=== PATIENT | female | born 1990 | race African-American/Black ===

== ENCOUNTER 2020-09-08 17:25 | Emergency (ER) | payer MEDICARE, MEDICAID, SELFPAY ==
--- NOTE | 2020-09-08 17:32 | ED_ITS ---
HPI - Nausea/Vomiting/Diarrhea General Chief complaint: Nausea/Vomiting/Diarrhea Stated complaint: VOMITING X'S DAYS,H/O CYCLICAL VOMITING Time Seen by Provider: 09/08/20 17:32 Source: patient Mode of arrival: EMS Limitations: no limitations History of Present Illness HPI Narrative: Patient history of marijuana abuse, cyclical vomiting syndrome been vomiting for last 1 week similar to that in previous episode was seen at [facility] yesterday for same vomiting 10-15 times a day unable to take anything down no diarrhea no abdominal pain no fever patient denied use of marijuana for last 1 week. Patient been to our hospital multiple times for similar situation feels anxious Related Data Allergies Allergy/AdvReac Type Severity Reaction Status Date / Time codeine [CODEINE] Allergy Unknown UNKNOWN Verified 09/08/20 17:41 acetaminophen [From TYLENOL] AdvReac Mild HEADACHES Verified 09/08/20 17:41 From HALDOL Allergy Unknown Anaphylaxis Uncoded 09/08/20 17:41 Review of Systems Review of Systems: Yes all other systems are reviewed and are negative PMFSH Past Medical History Medical History Anxiety Bipolar 1 disorder Depression PTSD (post-traumatic stress disorder) Social History Social History Advance Directives: No Advance Directives Information Provided: Yes Patient : No Physical Exam Vital Signs: Vital Signs: Last Vital Signs Temp 98.1 F 09/08/20 17:36 Pulse 94 09/08/20 19:30 Resp 22 H 09/08/20 19:30 BP 167/93 H 09/08/20 19:30 Pulse Ox 100 09/08/20 19:30 Body Mass Index 47.0 Appearance: Alert. Oriented X3. No acute distress. Eyes: PERRLA, No Nystagmus ENT: Pharynx normal. Oral Mucosa moist Neck: Normal inspection. Neck supple. CVS: Normal heart rate and rhythm. Pulses normal. Respiratory: No respiratory distress. Equal air entry bilateral, no wheezing/rales/rhonchi Abdomen: Soft and nontender. Bowel sounds are present, no mass palpable, no CVA tenderness Skin: Skin warm and dry. Normal skin color. Normal skin turgor. Extremities: No lower extremity edema. No calf tenderness Neuro: Oriented X 3. No motor deficit. No sensory deficit.No cerebellar signs , cranial nerves II-XII intact MDM - Nausea/Vomiting/Diarrhea MDM Narrative Medical decision making narrative: Patient has cyclic vomiting syndrome feeling much better now DC home taking p.o. fluids Lab Data Attestation: I reviewed the patient's lab results. Result diagrams: 09/08/20 18:47 09/08/20 18:16 Labs: Lab Results 09/08/20 09/08/20 09/08/20 Range/Units 18:16 18:16 18:20 WBC RBC Hgb Hct MCV MCH MCHC RDW Plt Count MPV Immature Gran % (Auto) Neut % (Auto) Lymph % (Auto) [place] % (Auto) Eos % (Auto) Baso % (Auto) Lymph # (Auto) [place] # (Auto) Eos # (Auto) Baso # (Auto) Abs Immat Gran (auto) Absolute Neuts (auto) Absolute Nucleated RBC Nucleated RBC % (auto) Sodium Cancelled 141 Potassium Cancelled 3.6 Chloride Cancelled 104 Carbon Dioxide Cancelled 28 Anion Gap Cancelled 13 BUN Cancelled 9 Creatinine Cancelled 0.86 Estim Creat Clear Calc Cancelled 140.5 Estimated GFR Cancelled > 60 Random Glucose Cancelled 112 Calcium Cancelled 9.2 Total Bilirubin Cancelled 0.7 AST Cancelled 22 ALT Cancelled 19 Alkaline Phosphatase Cancelled 85 Total Protein Cancelled 7.3 Albumin Cancelled 4.3 Lipase 15 (8-78) U/L Urine Opiates Screen Not Detected (Not Detect) Ur Barbiturates Screen Not Detected (Not Detect) Ur Phencyclidine Scrn Not Detected (Not Detect) Ur Amphetamines Screen Not Detected (Not Detect) U Benzodiazepines Scrn POSITIVE H (Not Detect) Urine Cocaine Screen Not Detected (Not Detect) U Marijuana (THC) Screen POSITIVE H (Not Detect) 09/08/20 Range/Units 18:47 WBC Cancelled RBC Cancelled Hgb Cancelled Hct Cancelled MCV Cancelled MCH Cancelled MCHC Cancelled RDW Cancelled Plt Count Cancelled MPV Cancelled Immature Gran % (Auto) Cancelled Neut % (Auto) Cancelled Lymph % (Auto) Cancelled [place] % (Auto) Cancelled Eos % (Auto) Cancelled Baso % (Auto) Cancelled Lymph # (Auto) Cancelled [place] # (Auto) Cancelled Eos # (Auto) Cancelled Baso # (Auto) Cancelled Abs Immat Gran (auto) Cancelled Absolute Neuts (auto) Cancelled Absolute Nucleated RBC Cancelled Nucleated RBC % (auto) Cancelled Sodium Potassium Chloride Carbon Dioxide Anion Gap BUN Creatinine Estim Creat Clear Calc Estimated GFR Random Glucose Calcium Total Bilirubin AST ALT Alkaline Phosphatase Total Protein Albumin Lipase (8-78) U/L Urine Opiates Screen (Not Detect) Ur Barbiturates Screen (Not Detect) Ur Phencyclidine Scrn (Not Detect) Ur Amphetamines Screen (Not Detect) U Benzodiazepines Scrn (Not Detect) Urine Cocaine Screen (Not Detect) U Marijuana (THC) Screen (Not Detect) Discharge Plan Discharge Clinical Impression: Cyclic vomiting syndrome Patient Disposition: Home, Self-Care Instructions: Cyclic Vomiting Syndrome (ED) Additional Instructions: Drink plenty of fluids rest at home. stop Using marijuana Interventions: ED Discharge Assessment Last Done: 09/08/20 19:36 Discharge Date/Time: 09/08/20 19:37
[2020-09-08 17:36] VITALS: BP 153/102; PULSE 105; RESP 16; TEMP 36.7; O2SAT 100; BMI 47.0
[2020-09-08] MEDS: 0.9 % Sodium Chloride 1,000 ML 999 ML IVCONT (17:53)
[2020-09-08] MEDS: Prochlorperazine Edisylate 10 MG/2 ML VIAL IVPUSH (17:53)
[2020-09-08] MEDS: LORazepam 2 MG/ML VIAL 1 MG IVPUSH (17:53)
[2020-09-08 18:50] LABS: Alanine Aminotransferase 19 U/L (0-31); Albumin Level 4.3 g/dL (3.5-5.0); Alkaline Phosphatase 85 U/L (39-117); Anion Gap 13 (12-20); Aspartate Amino Transferase 22 U/L (5-31); Bilirubin Total 0.7 mg/dL (0.0-1.0); Blood Urea Nitrogen 9 mg/dL (9-16); Calcium 9.2 mg/dL (8.4-10.2); Carbon Dioxide 28 mmol/L (22-29); Chloride 104 mmol/L (96-108); Creatinine Clr Calc Pharmacy 140.5; Estimated Glomerular Filt Rate > 60; Glucose Random 112 mg/dL (60-115); Lipase 15 U/L (8-78); Potassium 3.6 mmol/L (3.3-5.1); Sodium 141 mmol/L (135-145); Total Protein 7.3 g/dL (6.5-8.0)
[2020-09-08 18:56] LABS: Amphetamine Screen Urine Not Detected (Not Detect); Barbiturates, Urine Not Detected (Not Detect); Benzodiazepines Screen Urine POSITIVE (Not Detect); Cannabinoid Screen Urine POSITIVE (Not Detect); Cocaine Screen Urine Not Detected (Not Detect); Opiate Screen Urine Not Detected (Not Detect); Phencyclidine Screen Urine Not Detected (Not Detect)
[2020-09-08 19:30] VITALS: BP 167/93; PULSE 94; RESP 22; O2SAT 100
[2020-09-08] MEDS: Haloperidol Lactate 5 MG/ML VIAL 2 MG IM (19:33)
[2020-09-08] MEDS: LORazepam 1 MG TABLET PO (19:34)
== END 2020-09-08 19:37 | disposition home or self-care (01) ==
PROVIDERS: Emergency Provider Internal Medicine
DX: R11.15 Cyclical vomiting syndrome unrelated to migraine (principal); F12.10 Cannabis abuse, uncomplicated
CPT/HCPCS: 36415; 80053; 80307; 83690; 85025; 96361; 96372; 96374; 96375; 99284; J2060

== ENCOUNTER 2020-09-09 07:39 | Emergency (ER) | payer MEDICARE, MEDICAID, SELFPAY ==
--- NOTE | 2020-09-09 08:38 | ED.NAVMDI ---
HPI - Nausea/Vomiting/Diarrhea General Chief complaint: Nausea/Vomiting/Diarrhea Stated complaint: sick with vomitting Time Seen by Provider: 09/09/20 08:18 Source: patient Mode of arrival: ambulatory Limitations: no limitations History of Present Illness HPI Narrative: Patient presents to ED for cyclic vomiting presentation. Patient states she is vomiting because she is continuing smoking marijuana. Patient states she has slightly cut down amount of marijuana smoking but has refused to stop. Patient was seen yesterday for similar presentation. Patient is also seen at [facility] for similar yesterday.. Patient has been to the ED for similar she has presented multiple times in the past. Patient denies any chest pain, shortness of breath, abdominal pain, dysuria, hematuria, flank pain, vaginal bleeding, fever, or chills. MD elicited complaint: nausea and vomiting Associated nausea: Yes Related Data Previous Rx's Medication Instructions Recorded alum-mag hydroxide-simeth [Maalox 10 ml PO Q6H PRN #3000 ml 09/09/20 Advanced] famotidine [Pepcid] 20 mg PO BID #20 tab 09/09/20 ondansetron HCl [Zofran] 4 mg PO Q6H PRN #8 tab 09/09/20 quetiapine [Seroquel] 300 mg PO BEDTIME #5 tab 09/09/20 Allergies Allergy/AdvReac Type Severity Reaction Status Date / Time codeine [CODEINE] Allergy Unknown UNKNOWN Verified 09/08/20 17:41 acetaminophen [From TYLENOL] AdvReac Mild HEADACHES Verified 09/08/20 17:41 From HALDOL Allergy Unknown Anaphylaxis Uncoded 09/08/20 17:41 Review of Systems Review of Systems: Yes all other systems are reviewed and are negative Constitutional: Constitutional: Reports as per HPI and Reports no additional constitutional complaints Eyes: Eyes: Reports as per HPI and Reports no additional eye complaints ENT: Reports system reviewed and no additional complaints, except as documented, Reports as per HPI, Denies dysphagia and Denies odynophagia Cardiovascular: Cardiovascular: Reports as per HPI and Reports no additional cardiovascular complaints Respiratory: Respiratory: Reports as per HPI and Reports no additional respiratory complaints Gastrointestinal: Gastrointestinal: Reports as per HPI, Reports no additional gastrointestinal complaints, Denies abdominal pain, Denies belching, Denies melena, Denies bloating, Denies hematochezia, Denies change in bowel habits, Denies tenesmus, Denies change in stool character, Denies coffee ground emesis, Denies constipation, Denies GI cramping, Denies dysphagia, Denies excessive flatus, Denies early satiety, Denies dyspepsia, Denies heartburn, Denies fecal incontinence, Denies diarrhea, Denies loose stools, Reports nausea, Denies odynophagia, Reports vomiting and Denies hematemesis Genitourinary: Genitourinary: Reports no additional female genitourinary complaints and Reports as per HPI Musculoskeletal: Musculoskeletal: Reports no additional musculoskeletal complaints and Reports as per HPI Neurologic: Reports system reviewed and no additional complaints, except as documented and Reports as per HPI Psychiatric: Psychiatric: Reports no additional psychiatric complaints and Reports as per HPI [facility] Past Medical History Medical History Anxiety Bipolar 1 disorder Depression PTSD (post-traumatic stress disorder) Social History Social History Advance Directives: Yes Advance Directives Information Provided: Yes Advance Directives on File: No Physical Exam Vital Signs: Vital Signs: Last Vital Signs Pulse 99 09/09/20 10:47 Resp 20 09/09/20 10:47 BP 154/99 H 09/09/20 10:47 Pulse Ox 98 09/09/20 10:47 Body Mass Index 47.0 Const: General: cooperative, healthy appearing, comfortable, no acute distress, well developed, alert, awake and Physically active Orientation/consciousness: patient oriented x3 HENMT: Head: Yes normal to inspection, Yes No palpable skull fracture present, Yes normocephalic and Yes atraumatic Eyes: General: appearance normal, both eyes and all related structures Neck: Neck: Yes normal visual inspection, Yes full ROM, Yes no lymphadenopathy, Yes no meningeal signs, Yes trachea midline, Yes supple and No tender Chest: Chest palpation & inspection: normal inspection of the chest and normal palpation of entire chest wall Resp: Effort & Inspection: normal respiratory effort and able to speak in complete sentences Auscultation: clear to auscultation bilaterally Cardio: Jugular venous distension: no JVD Heart sounds: S1 normal heart sound present and S2 normal heart sound present GI: Inspection: Yes normal to inspection and No abdominal wall ecchymosis Palpation (GI): Soft to palpation, not firm, nontender, no guarding and not rigid : General: No CVA tenderness and Yes no CVA tenderness Back/Spine/Pelvis: Back: no CVA tenderness, No CVA tenderness and No back tenderness Skin: General skin exam: no rashes or lesions noted and elasticity normal Neuro: General: patient oriented x3, gait normal, no meningeal signs and CN's II-XI intact bilaterally Cranial nerves: Yes CN's II-XII intact bilaterally Extrem: General: Yes normal to inspection and Yes full ROM Psych: Appearance: grossly normal, well kempt and not disheveled Course Course Course Narrative: Will give patient IM Zyprexa, Benadryl, Zofran, and Reglan. Patient had labs yesterday. Will re-evaluate. Reevaluation(s) Reevaluation #1: Patient is sleeping comfortably in bed.. Patient no longer vomiting Time: 10:10 Reevaluation #2: Patient states she feels better and would like to be discharged. Patient also requesting prescription of Seroquel because her current prescription was lost. patient also asking for GERD meds. Patient passed p.o. challenge Time: 10:41 MDM - Nausea/Vomiting/Diarrhea MDM Narrative Medical decision making narrative: Cyclic vomitting Discharge Plan Discharge Clinical Impression: Cyclical vomiting Patient Disposition: Home, Self-Care Instructions: Cyclic Vomiting Syndrome (ED) Additional Instructions: Return to the ED for for fever, chills, intractable nausea/vomiting, inability to tolerate solid food/liquid, severe abdominal pain, dizziness, weakness, or any other concerning symptoms. Please follow up with PCP Prescriptions: New quetiapine [Seroquel] 300 mg tablet 300 mg PO BEDTIME Qty: 5 RF: 0 famotidine [Pepcid] 20 mg tablet 20 mg PO BID Qty: 20 RF: 0 alum-mag hydroxide-simeth [Maalox Advanced] 200-200-20 mg/5 mL suspension 10 ml PO Q6H PRN (Reason: dyspepsia) Qty: 3000 RF: 0 ondansetron HCl [Zofran] 4 mg tablet 4 mg PO Q6H PRN (Reason: nausea) Qty: 8 RF: 0 Interventions: ED Discharge Assessment Last Done: 09/09/20 11:03 Discharge Date/Time: 09/09/20 11:51 Print Language: Irish
[2020-09-09] MEDS: LORazepam 2 MG/ML VIAL IM (09:10)
[2020-09-09] MEDS: Metoclopramide HCl 10 MG/2 ML VIAL IM (09:11)
[2020-09-09] MEDS: diphenhydrAMINE HCL 50 MG/ML VIAL IM (09:11)
[2020-09-09] MEDS: OLANZapine 10 MG VIAL IM (09:25)
[2020-09-09 10:45] VITALS: BP 154/99; PULSE 99; RESP 20; O2SAT 98
[2020-09-09 10:47] VITALS: BP 154/99; PULSE 99; RESP 20; O2SAT 98; BMI 47.0
--- NOTE | 2020-09-09 11:46 | PC.NURSE ---
pt reports to the ed with cyclic vomiting, no c/o pain. states she has been smoking marijuana for a while and has been having symptoms x1wk. pt pacing states it makes her feel better to walk around. Meds given with good effect.
== END 2020-09-09 11:51 | disposition home or self-care (01) ==
PROVIDERS: Emergency Provider Emergency Medicine
DX: R11.15 Cyclical vomiting syndrome unrelated to migraine (principal); F12.90 Cannabis use, unspecified, uncomplicated
CPT/HCPCS: 96372; 99283; 99284; J1200; J2060; J2765

== ENCOUNTER 2020-09-13 05:49 | Emergency (ER) | payer MEDICARE, MEDICAID, SELFPAY | END 2020-09-13 06:24 | disposition left against medical advice (07) | LOC: HO.ED 06:23 | PROVIDERS: Emergency Provider Emergency Medicine | DX: R11.10 Vomiting, unspecified (principal) ==

== ENCOUNTER 2020-09-13 06:35 | Emergency (ER) | payer MEDICARE, MEDICAID, SELFPAY | END 2020-09-13 07:30 | disposition left against medical advice (07) | PROVIDERS: Emergency Provider Emergency Medicine | DX: R11.10 Vomiting, unspecified (principal) ==

== ENCOUNTER 2020-09-14 11:37 | Emergency (ER) | payer MEDICARE, MEDICAID, SELFPAY ==
[2020-09-14 11:39] VITALS: BP 127/83; BP 127/87; PULSE 88; PULSE 99; RESP 18; TEMP 37; O2SAT 99; BMI 47.0
[2020-09-14 12:08] LABS: MANUAL DIFF FLAG NO
[2020-09-14 12:11] LABS: Basophils Percent Auto 0.2 % (0-2); Eosinophils Percent Auto 0.4 % (0-4); Hemoglobin 12.5 g/dl (12.0-16.0); Imm Gran Abs Auto 0.08 X10*3/uL (0.00-0.03); Imm Gran Pct Auto 0.7 % (0.0-0.4); Lymphocytes Absolute Auto 3.4 X10*3/uL (1.2-4.9); Lymphocytes Percent Auto 29.8 % (20-40); Mean Corpuscular HGB Conc 32.1 g/dl (31.0-35.0); Mean Corpuscular Hemoglobin 25.3 pg (27.0-33.0); Mean Corpuscular Volume 78.8 fL (80-98); Mean Platelet Volume 8.9 fL (9.4-12.3); Monocytes Absolute Auto 0.8 X10*3/uL (0.1-1.2); Monocytes Percent Auto 6.9 % (2-11); Platelet Count 285 X10*3/uL (160-400); Red Blood Count 4.95 X10*6/uL (4.20-5.50); Red Cell Distribution Width 15.9 % (11.0-16.0); White Blood Count 11.2 X10*3/uL (4.8-10.8)
--- NOTE | 2020-09-14 12:17 | ED.NAVMDI ---
HPI - Nausea/Vomiting/Diarrhea General Chief complaint: Nausea/Vomiting/Diarrhea Stated complaint: abd/vomiting x1 week Time Seen by Provider: 09/14/20 11:52 Source: patient and EMS Mode of arrival: EMS Limitations: no limitations History of Present Illness HPI Narrative: 30-year-old female with history of cyclic vomiting syndrome and marijuana use presents to the emergency department via EMS for nausea and vomiting. She states that she has not been able to eat or drink the past week. She denies using marijuana over the past several days. She does not report any fevers or chills, denies chest pain or pressure, palpitations, shortness of breath, shortness of breath on exertion, abdominal distention, dysuria, hematuria, edema, dizziness, weakness, or any other concerning symptoms. MD elicited complaint: nausea and vomiting Pertinent past history: cyclical vomiting Onset (ago): week(s) (One) Description of vomiting: watery and bilious Associated nausea: Yes Associated abdominal pain: Yes Location of pain: diffuse Severity: mild Exacerbating factors: eating and vomiting Relieving factors: none Context: marijuana use Associated symptoms: denies other symptoms Related Data Previous Rx's Medication Instructions Recorded alum-mag hydroxide-simeth [Maalox 10 ml PO Q6H PRN #3000 ml 09/09/20 Advanced] famotidine [Pepcid] 20 mg PO BID #20 tab 09/09/20 ondansetron HCl [Zofran] 4 mg PO Q6H PRN #8 tab 09/09/20 quetiapine [Seroquel] 300 mg PO BEDTIME #5 tab 09/09/20 famotidine 20 mg PO DAILY #20 tab 09/14/20 metoclopramide HCl [Reglan] 10 mg PO Q6H PRN #20 tab 09/14/20 Allergies Allergy/AdvReac Type Severity Reaction Status Date / Time codeine [CODEINE] Allergy Unknown UNKNOWN Verified 09/14/20 11:39 acetaminophen [From TYLENOL] AdvReac Mild HEADACHES Verified 09/14/20 11:39 From HALDOL Allergy Unknown Anaphylaxis Uncoded 09/08/20 17:41 Review of Systems Review of Systems: Constitutional: No Weight loss, No Fever, No Chills, No Night Sweats, No Fatigue, No Malaise ENT/Mouth: No Hearing loss, No Ear Pain, No Nasal Congestion, No Sinus Pain, No Hoarseness, No sore throat, No Rhinorrhea, No Swallowing Difficulty Eyes: No Eye Pain, No Swelling, No Redness, No Foreign Body, No Discharge, No Vision Changes Cardiovascular: No Chest Pain, No SOB, No Dyspnea on Exertion, No Orthopnea, No Edema, No Palpitations Respiratory: No Cough, No Sputum, No Wheezing, No Smoke Exposure, No Dyspnea Gastrointestinal: Positive Nausea, Positive Vomiting, no Diarrhea, positive abdominal Pain, No Hematochezia, No Melena Genitourinary: no irregular bleeding, No Dysuria, No Urinary Frequency, No Hematuria, No Urinary Incontinence, No Urgency, No Flank Pain, No Urinary Flow Changes, No Hesitancy Musculoskeletal: No joint pain, No Myalgias, No Joint Swelling Skin: No Skin Lesions, No rash Neuro: No Weakness, No Numbness, No Paresthesias, No Loss of Consciousness, No Dizziness, No Headache Psych: No Anxiety/Panic, No Depression, No SI/HI/AH/VH, No Social Issues Heme/Lymph: No Bruising, No Bleeding,No Lymphadenopathy Endocrine: No Polyuria, No Polydipsia, No Temperature Intolerance Yes all other systems are reviewed and are negative Gastrointestinal: Gastrointestinal: Reports nausea PMFSH Past Medical History Attestation statement: The following information was validated with the patient. Source: old records reviewed Medical History Anxiety Bipolar 1 disorder Depression PTSD (post-traumatic stress disorder) Social History Social History Alcohol intake: never Patient Tobacco Use Status: Never used Tobacco Use of substances other than those prescribed or required for medical reasons: Yes Substance Use Type: Marijuana Substance Use Frequency Other:: used 1 wk ago Advance Directives: Yes Advance Directives Information Provided: Yes Advance Directives on File: No Patient : No Physical Exam Vital Signs: Vital Signs: Last Vital Signs Temp 98.6 F 09/14/20 11:39 Pulse 88 09/14/20 11:39 Resp 18 09/14/20 11:39 BP 127/83 09/14/20 11:39 Pulse Ox 99 09/14/20 11:39 Body Mass Index 47.0 Appearance: Alert. Oriented X3. No acute distress. Eyes: Pupils equal, round and reactive to light. ENT: Pharynx normal. Neck: Normal inspection. Neck supple. CVS: Normal heart rate and rhythm. Pulses normal. Respiratory: No respiratory distress. Breath sounds normal. Abdomen: Soft and nontender. Skin: Skin warm and dry. Normal skin color. Normal skin turgor. Extremities: No lower extremity edema. Neuro: No motor deficit. No sensory deficit. Course Course Course Narrative: 30-year-old female presents with cyclic vomiting syndrome. This is a chronic problem for her, she usually presents to another emergency department then presents to [place], stated that she was seen at [facility]. When she was here last, 09/09/2020, patient stated that she did really well with the medication regimen which included Zyprexa IM, Benadryl, Zofran, and Reglan. Patient states that the p.o. Zofran that she was prescribed at home does not work well at all. I will repeat the same regimen, and re-evaluate. 1:15 p.m. patient states that she feels better, but needs more time before she can be discharged home. Patient will be discharged with prescription for Reglan. Patient verbalizes understanding of and agrees to plan of care discharge. MDM - Nausea/Vomiting/Diarrhea MDM Narrative Medical decision making narrative: Cyclic vomiting syndrome Differential Diagnosis Differential diagnosis: Likely dehydration Medical Records Attestation: I reviewed the patient's medical records. Lab Data Attestation: I reviewed the patient's lab results. Result diagrams: 09/14/20 11:56 09/14/20 11:56 Labs: Lab Results 09/14/20 09/14/20 Range/Units 11:56 11:56 WBC 11.2 H (4.8-10.8) X10*3/uL RBC 4.95 (4.20-5.50) X10*6/uL Hgb 12.5 (12.0-16.0) g/dl Hct 39.0 (37-47) % MCV 78.8 L (80-98) fL MCH 25.3 L (27.0-33.0) pg MCHC 32.1 (31.0-35.0) g/dl RDW 15.9 (11.0-16.0) % Plt Count 285 (160-400) X10*3/uL MPV 8.9 L (9.4-12.3) fL Immature Gran % (Auto) 0.7 H (0.0-0.4) % Neut % (Auto) 62.0 (45-73) % Lymph % (Auto) 29.8 (20-40) % [place] % (Auto) 6.9 (2-11) % Eos % (Auto) 0.4 (0-4) % Baso % (Auto) 0.2 (0-2) % Lymph # (Auto) 3.4 (1.2-4.9) X10*3/uL [place] # (Auto) 0.8 (0.1-1.2) X10*3/uL Eos # (Auto) 0.0 (0.0-0.4) X10*3/uL Baso # (Auto) 0.0 (0.0-0.2) X10*3/uL Abs Immat Gran (auto) 0.08 H (0.00-0.03) X10*3/uL Absolute Neuts (auto) 7.0 (2.0-8.3) X10*3/uL Absolute Nucleated RBC 0.000 (0.0-0.012) X10*3/uL Nucleated RBC % (auto) 0.0 (0.0-0.2) /100WBC Sodium 138 (135-145) mmol/L Potassium 4.1 (3.3-5.1) mmol/L Chloride 99 (96-108) mmol/L Carbon Dioxide 28 (22-29) mmol/L Anion Gap 15 (12-20) BUN 9 (9-16) mg/dL Creatinine 0.79 (0.5-1.4) mg/dL Estim Creat Clear Calc 152.9 Estimated GFR > 60 Random Glucose 114 (60-115) mg/dL Calcium 10.0 D (8.4-10.2) mg/dL Total Bilirubin 0.8 (0.0-1.0) mg/dL Direct Bilirubin 0.3 (0.0-0.5) mg/dL AST 35 H D (5-31) U/L ALT 21 (0-31) U/L Alkaline Phosphatase 79 (39-117) U/L Total Protein 7.5 (6.5-8.0) g/dL Albumin 4.3 (3.5-5.0) g/dL Lipase 14 (8-78) U/L Discharge Plan Discharge Clinical Impression: Cyclic vomiting syndrome Patient Disposition: Home, Self-Care Instructions: Cyclic Vomiting Syndrome (ED) Additional Instructions: You evaluated for cyclic vomiting syndrome. Please follow-up with primary care provider. I prescribed Reglan for you. You may use this in conjunction with your Zofran. Thank you for choosing this emergency department for evaluation. Please follow-up with primary care physician as needed. Return to the emergency department for any new, concerning, or worsening symptoms. Prescriptions: New metoclopramide HCl [Reglan] 10 mg tablet 10 mg PO Q6H PRN (Reason: nausea and vomiting) Qty: 20 RF: 0 famotidine 20 mg tablet 20 mg PO DAILY Qty: 20 RF: 0 No Action quetiapine [Seroquel] 300 mg tablet 300 mg PO BEDTIME Qty: 5 RF: 0 famotidine [Pepcid] 20 mg tablet 20 mg PO BID Qty: 20 RF: 0 alum-mag hydroxide-simeth [Maalox Advanced] 200-200-20 mg/5 mL suspension 10 ml PO Q6H PRN (Reason: dyspepsia) Qty: 3000 RF: 0 ondansetron HCl [Zofran] 4 mg tablet 4 mg PO Q6H PRN (Reason: nausea) Qty: 8 RF: 0 Interventions: ED Discharge Assessment Last Done: 09/14/20 14:00 Discharge Date/Time: 09/14/20 14:01
[2020-09-14 12:41] LABS: Alanine Aminotransferase 21 U/L (0-31); Albumin Level 4.3 g/dL (3.5-5.0); Alkaline Phosphatase 79 U/L (39-117); Anion Gap 15 (12-20); Aspartate Amino Transferase 35 U/L (5-31); Bilirubin Direct 0.3 mg/dL (0.0-0.5); Bilirubin Total 0.8 mg/dL (0.0-1.0); Blood Urea Nitrogen 9 mg/dL (9-16); Carbon Dioxide 28 mmol/L (22-29); Chloride 99 mmol/L (96-108); Creatinine Clr Calc Pharmacy 152.9; Estimated Glomerular Filt Rate > 60; Glucose Random 114 mg/dL (60-115); Lipase 14 U/L (8-78); Potassium 4.1 mmol/L (3.3-5.1); Sodium 138 mmol/L (135-145); Total Protein 7.5 g/dL (6.5-8.0)
[2020-09-14] MEDS: 0.9 % Sodium Chloride 1,000 ML 999 ML IVCONT (12:55)
[2020-09-14] MEDS: ondansetron HCL 4 MG/2 ML VIAL IVPUSH (12:56)
[2020-09-14] MEDS: Metoclopramide HCl 10 MG/2 ML VIAL IVPUSH (12:56)
[2020-09-14] MEDS: diphenhydrAMINE HCL 50 MG/ML VIAL IVPUSH (12:57)
[2020-09-14] MEDS: OLANZapine 10 MG VIAL 5 MG IM (13:01)
[2020-09-14] MEDS: Magnesium Hydrox/Alum Hydrox 30 ML ORAL.SUSP PO (13:48)
--- NOTE | 2020-09-14 13:52 | PC.NURSE ---
Pt able to drink gingerale without vomiting. She was medicated for acid reflux per request of the patient. Pt requesting to go home. IV removed.
== END 2020-09-14 14:01 | disposition home or self-care (01) ==
PROVIDERS: Emergency Provider Emergency Medicine
DX: R11.15 Cyclical vomiting syndrome unrelated to migraine (principal); F12.90 Cannabis use, unspecified, uncomplicated
CPT/HCPCS: 36415; 80048; 80076; 83690; 85025; 96361; 96372; 96374; 96375; 99284; J1200; J2405; J2765

== ENCOUNTER 2021-10-07 02:37 | Emergency (ER) | payer OTHER, SELFPAY ==
[2021-10-07 02:40] VITALS: BP 150/75; PULSE 103; O2SAT 98
[2021-10-07 03:05] VITALS: BP 148/97; PULSE 100; RESP 24; TEMP 36.2; O2SAT 98; BMI 45.6
[2021-10-07 03:05] LABS: MANUAL DIFF FLAG NO
[2021-10-07 03:09] LABS: Basophils Percent Auto 0.3 % (0-2); Eosinophils Percent Auto 0.3 % (0-4); Hematocrit 40.8 % (37.0-47.0); Hemoglobin 13.1 g/dl (12.0-16.0); Imm Gran Abs Auto 0.08 X10*3/uL (0.00-0.03); Imm Gran Pct Auto 0.7 % (0.0-0.4); Lymphocytes Absolute Auto 3.5 X10*3/uL (1.2-4.9); Lymphocytes Percent Auto 29.3 % (20-40); Mean Corpuscular HGB Conc 32.1 g/dl (31.0-35.0); Mean Corpuscular Volume 77.7 fL (80.0-98.0); Mean Platelet Volume 8.7 fL (9.4-12.3); Monocytes Absolute Auto 0.6 X10*3/uL (0.1-1.2); Monocytes Percent Auto 4.9 % (2-11); Neutrophils Absolute Auto 7.7 x10*3/uL (2.0-8.3); Neutrophils Percent Auto 64.5 % (45-73); Platelet Count 313 X10*3/uL (160-400); Red Blood Count 5.25 X10*6/uL (4.20-5.50); Red Cell Distribution Width 16.3 % (11.0-16.0); White Blood Count 11.9 X10*3/uL (4.8-10.8)
--- NOTE | 2021-10-07 03:11 | PC.NURSE ---
pt states that she is feeling so sick that she is going to kill herself. security contacted to manager exchange pt. pt refusing to change/give belongings to security. pt yelling that she doesnt want her things locked up. pt asking to leave. pt was told that since she made an SI statement to staff member, we need to ensure that she is safe and not a risk to self. MD made aware, pt continues to be resistive/uncooperative. pt states to this RN youre not touching me, ill prabhu you and this hospital. i want to leave, i should have left security at bedside.
[2021-10-07 03:22] LABS: Alanine Aminotransferase 12 U/L (0-31); Albumin Level 4.5 g/dL (3.5-5.0); Alkaline Phosphatase 83 U/L (39-117); Anion Gap 15 (12-20); Aspartate Amino Transferase 13 U/L (5-31); Bilirubin Direct 0.3 mg/dL (0.0-0.5); Bilirubin Total 0.6 mg/dL (0.0-1.0); Blood Urea Nitrogen 8 mg/dL (9-16); Calcium 9.1 mg/dL (8.4-10.2); Carbon Dioxide 21 mmol/L (22-29); Chloride 105 mmol/L (96-108); Creatinine Clr Calc Pharmacy 157.8; Estimated Glomerular Filt Rate > 60; Glucose Random 134 mg/dL (60-115); Lipase 16 U/L (8-78); Potassium 4.1 mmol/L (3.3-5.1); Sodium 137 mmol/L (135-145); Total Protein 7.8 g/dL (6.5-8.0)
--- NOTE | 2021-10-07 03:26 | PC.NURSE ---
pt upset that she is unable to leave after making SI statements and being told that she cannot leave by the MD. pt stating that she wants to file a complaint, and to speak with the ombudsman. security is at bedside at this time. pt refuses to give up her personal belongings stating that it will exacerbate her anxiety. pt stating that she is going to refuse all medical care
[2021-10-07 03:28] LABS: COVID-19 Test Negative (Negative)
--- NOTE | 2021-10-07 03:43 | ED.NAVMDI ---
HPI - Nausea/Vomiting/Diarrhea General Chief complaint: Nausea/Vomiting/Diarrhea Stated complaint: anxiety si Time Seen by Provider: 10/07/21 03:34 Source: patient Mode of arrival: ambulatory History of Present Illness HPI Narrative: 31-year-old female with history of bipolar, PTSD, sickle vomiting is brought in by EMS and EMS reports that patient was complaining of anxiety and SI. On arrival patient denied that she was suicidal and so she was triaged and placed in the waiting room and that which time she then endorsed to both the copier field service technician as well as the charge nurse that she want to harm herself. Patient states that her stomach is hurting a lot and that she has been vomiting for 2 days. She states that the vomiting triggers her anxiety. She otherwise denies any fever or chills. Related Data Previous Rx's Medication Instructions Recorded aluminum-mag hydroxide-simethicone 10 ml PO Q6H PRN dyspepsia #3,000 09/09/20 200 mg-200 mg-20 mg/5 mL oral susp mL (Maalox Advanced) famotidine 20 mg tablet (Pepcid) 20 mg PO BID #20 tabs 09/09/20 ondansetron HCl 4 mg tablet 4 mg PO Q6H PRN nausea #8 tabs 09/09/20 (Zofran) quetiapine 300 mg tablet (Seroquel) 300 mg PO BEDTIME #5 tabs 09/09/20 famotidine 20 mg tablet 20 mg PO DAILY #20 tabs 09/14/20 metoclopramide HCl 10 mg tablet 10 mg PO Q6H PRN nausea and 09/14/20 (Reglan) vomiting #20 tabs Allergies Allergy/AdvReac Type Severity Reaction Status Date / Time codeine [CODEINE] Allergy Unknown UNKNOWN Verified 10/07/21 03:09 acetaminophen [From TYLENOL] AdvReac Mild HEADACHES Verified 10/07/21 03:09 From HALDOL Allergy Unknown Anaphylaxis Uncoded 10/07/21 03:09 Review of Systems Review of Systems: Pertinent positives and negatives as stated in HPI 10 point review of systems is otherwise negative. PMFSH Past Medical History Source: nursing notes reviewed Medical History Anxiety Bipolar 1 disorder Depression PTSD (post-traumatic stress disorder) Social History Social History Alcohol intake: never Patient Tobacco Use Status: Never used Tobacco Substance Use Type: Marijuana Advance Directives: No Advance Directives Information Provided: No Physical Exam Vital Signs: Vital Signs: Last Vital Signs Temp 97.2 F 10/07/21 03:05 Pulse 100 10/07/21 05:31 Resp 18 10/07/21 05:31 BP 171/108 H 10/07/21 05:34 Pulse Ox 100 10/07/21 05:31 O2 Del Method 10/07/21 05:31 BMI result Body Mass Index 45.6 VITAL SIGNS: Reviewed. GENERAL: Well developed, well nourished, in no acute distress. HEAD: Normocephalic/atraumatic EYES: PERRLA, EOMI EARS: Ext canals without abnormality OROPHARYNX: no oral lesions noted, posterior pharynx clear LUNGS: Normal breath sounds. No adventitious sounds or accessory muscle use. SpO2<98> CARDIOVASCULAR: Regular rate and rhythm without noted murmurs ABDOMEN: Soft, non-tender, non-distended with bowel sounds. MUSCULOSKELETAL: No tenderness, deformities, or effusions noted on gross inspection. EXTREMITIES: No cyanosis, clubbing or edema. SKIN: Inspection of the skin reveals no rashes NEUROLOGIC: Alert and oriented x 4. Strength and sensation to light touch were grossly intact x 4. PSYCH: Anxiety Course Course Course Narrative: 31-year-old female with history and clinical presentation of cyclical vomiting, anxiety and there was extensive discussion as patient head claimed I want to harm myself which was verified by the charge nurse and then when attempts were made by security to secure her phone and change her clothing, patient became distraught and anxious stating that she needs her phone and that she wants to leave. It was explained to her that comments wanting to harm herself, despite the emotional duress she was feeling due to her vomiting and stomach pain needed to be taken seriously. 0526: I reviewed her records extensively to include in the old system and was unable to find where patient had made any attempts to harm herself, I do not see any documentation of admissions, inpatient is expressing insight. So discussed with the patient that we will not pursue further interventions to wards her statements I want to harm myself but she was strongly encouraged to stay for medical attention and she has agreed. She remains calm and cooperative at this time. Patient eloped. Reevaluation(s) Reevaluation #1: I reviewed this patient's chart extensively, to include the old charts, she does have diagnoses of bipolar as well as PTSD but there is no documentation of prior episodes of self-harm or suicidal ideation I do not find any psychiatric notes or documentation to that effect. I then went back over and discussed these findings with the patient as well as the nursing maintenance and operations supervisor who was at bedside as patient had become very upset and wished to speak to someone other than myself. I told the patient that I acknowledged that may be she had an emotional outbreak which caused her to states that she wanted to harm herself and encouraged her to stay with us so that she could be further assisted in resolving her nausea and vomiting, pain. Patient acknowledged that she would stay for further medical treatment. This occurred in front of the nursing maintenance and operations supervisor. Time: 03:40 MDM - Nausea/Vomiting/Diarrhea Lab Data Result diagrams: 10/07/21 02:59 10/07/21 02:59 Labs: Lab Results 10/07/21 10/07/21 10/07/21 Range/Units 02:59 02:59 02:59 WBC 11.9 H (4.8-10.8) X10*3/uL RBC 5.25 (4.20-5.50) X10*6/uL Hgb 13.1 (12.0-16.0) g/dl Hct 40.8 (37.0-47.0) % MCV 77.7 L (80.0-98.0) fL MCH 25.0 L (27.0-33.0) pg MCHC 32.1 (31.0-35.0) g/dl RDW 16.3 H (11.0-16.0) % Plt Count 313 (160-400) X10*3/uL MPV 8.7 L (9.4-12.3) fL Immature Gran % (Auto) 0.7 H (0.0-0.4) % Neut % (Auto) 64.5 (45-73) % Lymph % (Auto) 29.3 (20-40) % [place] % (Auto) 4.9 (2-11) % Eos % (Auto) 0.3 (0-4) % Baso % (Auto) 0.3 (0-2) % Lymph # (Auto) 3.5 (1.2-4.9) X10*3/uL [place] # (Auto) 0.6 (0.1-1.2) X10*3/uL Eos # (Auto) 0.0 (0.0-0.4) X10*3/uL Baso # (Auto) 0.0 (0.0-0.2) X10*3/uL Abs Immat Gran (auto) 0.08 H (0.00-0.03) X10*3/uL Absolute Neuts (auto) 7.7 (2.0-8.3) x10*3/uL Absolute Nucleated RBC 0.000 (0.0-0.012) X10*3/uL Nucleated RBC % (auto) 0.0 (0.0-0.2) /100WBC Sodium 137 (135-145) mmol/L Potassium 4.1 (3.3-5.1) mmol/L Chloride 105 (96-108) mmol/L Carbon Dioxide 21 L (22-29) mmol/L Anion Gap 15 (12-20) BUN 8 L (9-16) mg/dL Creatinine 0.77 (0.5-1.4) mg/dL Estim Creat Clear Calc 157.8 Estimated GFR > 60 Random Glucose 134 H (60-115) mg/dL Calcium 9.1 D (8.4-10.2) mg/dL Total Bilirubin 0.6 (0.0-1.0) mg/dL Direct Bilirubin 0.3 (0.0-0.5) mg/dL AST 13 D (5-31) U/L ALT 12 (0-31) U/L Alkaline Phosphatase 83 (39-117) U/L Total Protein 7.8 (6.5-8.0) g/dL Albumin 4.5 (3.5-5.0) g/dL Lipase 16 (8-78) U/L COVID-19 (JAMMIE) Negative (Negative) COVID-19 Clin Com See Note ECG Data Attestation: I personally reviewed and interpreted this ECG as follows: Prior ECG tracings: available for review Interpretation: Normal sinus rhythm, HR- 93, no STEMI, WI /QRS /QTC are within normal limits. Discharge Plan Discharge Clinical Impression: Cyclical vomiting Patient Disposition: Elopement Prescriptions: No Action metoclopramide HCl [Reglan] 10 mg tablet 10 mg PO Q6H PRN (Reason: nausea and vomiting) Qty: 20 0RF famotidine 20 mg tablet 20 mg PO DAILY Qty: 20 0RF quetiapine [Seroquel] 300 mg tablet 300 mg PO BEDTIME Qty: 5 0RF famotidine [Pepcid] 20 mg tablet 20 mg PO BID Qty: 20 0RF alum-mag hydroxide-simeth [Maalox Advanced] 200-200-20 mg/5 mL suspension 10 ml PO Q6H PRN (Reason: dyspepsia) Qty: 3000 0RF ondansetron HCl [Zofran] 4 mg tablet 4 mg PO Q6H PRN (Reason: nausea) Qty: 8 0RF Interventions: ED Discharge Assessment Last Done: 10/07/21 05:47 Discharge Date/Time: 10/07/21 05:47
[2021-10-07] MEDS: 0.9 % Sodium Chloride 1,000 ML 999 ML IV (03:50)
[2021-10-07] MEDS: ondansetron HCL 4 MG/2 ML VIAL IVPUSH (03:53)
--- NOTE | 2021-10-07 04:00 | PC.NURSE ---
Pt requesting to file a complaint that she is unable to leave per as she was making SI statements. Nursing supervisor asbestos removal contacted and @ bedside. Per MD, after reviewing all history, MD determined pt is not SI and therefore does not need to be changed over or have a 1:1. Primary RN notified.
[2021-10-07] MEDS: diphenhydrAMINE HCL 50 MG/ML VIAL 25 MG IVPUSH (04:18)
[2021-10-07] MEDS: Metoclopramide HCl 10 MG/2 ML VIAL IVPUSH (04:19)
--- NOTE | 2021-10-07 04:54 | PC.NURSE ---
pt vomiting bile, notified, pt continues to intermittently vomit bile. pt ambulated to BR with steady gait under contact supervision
--- NOTE | 2021-10-07 05:07 | ECG_ITS ---
Test Reason : VOMITTING Blood Pressure : / mmHG Vent. Rate : 093 BPM Atrial Rate : 093 BPM P-R Int : 174 ms QRS Dur : 098 ms QT Int : 376 ms P-R-T Axes : 047 010 030 degrees QTc Int : 467 ms Normal sinus rhythm Normal ECG When compared with ECG of 04-JUN-2019 21:27, [place] interval has decreased Referred By: Enid Muñiz Electronically Signed By:Tato Joseph
[2021-10-07] MEDS: Prochlorperazine Edisylate 10 MG/2 ML VIAL IVPUSH (05:27)
[2021-10-07 05:31] VITALS: PULSE 100; RESP 18; O2SAT 100
[2021-10-07 05:34] VITALS: BP 171/108
--- NOTE | 2021-10-07 05:44 | PC.NURSE ---
pt restless in room stating she cannot sit still. pt IV reinforced. pt asked to ambulate to BR, and was told we need a urine sample. Immediatley after pt states that she wants to leave despite intermittently vomiting bile. pt was asked for clarification, and she continued to state that she wants to leave. made aware. at this time, pt was ambulating in the HW and pulled out her IV in the sink. pt ambulated out of ER with steady gait. aware
== END 2021-10-07 05:47 | disposition left against medical advice (07) ==
PROVIDERS: Emergency Provider Student in an Organized Health Care Education/Training Program
DX: R11.15 Cyclical vomiting syndrome unrelated to migraine (principal); F12.90 Cannabis use, unspecified, uncomplicated; Z20.822 Contact with and (suspected) exposure to COVID-19; Z79.899 Other long term (current) drug therapy
CPT/HCPCS: 36415; 80048; 80076; 83690; 85025; 87635; 93005; 96361; 96374; 96375; 99284; J1200; J2405; J2765

== ENCOUNTER 2021-10-11 01:48 | Emergency (ER) | payer OTHER, SELFPAY ==
[2021-10-11] VITALS (7 sets, daily range): BP systolic 139–163; BP diastolic 78–112; PULSE 90–108; RESP 15–20; TEMP 36.5–36.6; O2SAT 94–99; BMI 45.6
--- NOTE | 2021-10-11 02:08 | ED_ITS ---
HPI - Nausea/Vomiting/Diarrhea General Chief complaint: Nausea/Vomiting/Diarrhea Stated complaint: Vomiting Time Seen by Provider: 10/11/21 01:52 Source: patient and old records reviewed Mode of arrival: EMS Limitations: no limitations History of Present Illness MD elicited complaint: nausea and vomiting Pertinent past history: cyclical vomiting Onset (ago): day(s) (3) Description of vomiting: food contents and watery Associated nausea: Yes Associated abdominal pain: Yes Location of pain: epigastric Radiation: epigastric Pain consistency: intermittent Severity: moderate Quality: aching Exacerbating factors: eating Relieving factors: none Context: marijuana use and other (cyclical vomiting, stress induced) Associated symptoms: nausea/vomiting Related Data Previous Rx's Medication Instructions Recorded aluminum-mag hydroxide-simethicone 10 ml PO Q6H PRN dyspepsia #3,000 09/09/20 200 mg-200 mg-20 mg/5 mL oral susp mL (Maalox Advanced) famotidine 20 mg tablet (Pepcid) 20 mg PO BID #20 tabs 09/09/20 ondansetron HCl 4 mg tablet 4 mg PO Q6H PRN nausea #8 tabs 09/09/20 (Zofran) quetiapine 300 mg tablet (Seroquel) 300 mg PO BEDTIME #5 tabs 09/09/20 famotidine 20 mg tablet 20 mg PO DAILY #20 tabs 09/14/20 metoclopramide HCl 10 mg tablet 10 mg PO Q6H PRN nausea and 09/14/20 (Reglan) vomiting #20 tabs Allergies Allergy/AdvReac Type Severity Reaction Status Date / Time codeine [CODEINE] Allergy Unknown UNKNOWN Verified 10/07/21 03:09 acetaminophen [From TYLENOL] AdvReac Mild HEADACHES Verified 10/07/21 03:09 From HALDOL Allergy Unknown Anaphylaxis Uncoded 10/07/21 03:09 Review of Systems Review of Systems: Constitutional : No Weight loss, No Fever, No Chills ENT/Mouth : No sore throat, No Rhinorrhea Eyes: No Swelling, No Redness Cardiovascular : No Chest Pain, No SOB, NoEdema Respiratory : No Cough, No Sputum, No Wheezing Gastrointestinal : Positive Nausea, Positive Vomiting, no Diarrhea, positive abdominal Pain, No Hematochezia, No Melena Genitourinary : No Dysuria, No Urinary Frequency, No Hematuria, No Urgency Musculoskeletal : No joint pain, No Myalgias, No Joint Swelling Skin : No Skin Lesions, No rash Neuro : No Weakness, No Numbness, No Dizziness, No Headache Psych : No Anxiety/Panic, No Depression Heme/Lymph: No Bruising, No Lymphadenopathy Endocrine : No Polyuria, No Polydipsia All other systems reviewed and are negative. Gastrointestinal: Gastrointestinal: Reports nausea PMFSH Past Medical History Attestation statement: The following information was validated with the patient. Medical History Anxiety Bipolar 1 disorder Depression PTSD (post-traumatic stress disorder) Surgical History S/P cholecystectomy Social History Social History Alcohol intake: never Patient Tobacco Use Status: Never used Tobacco Substance Use Type: Marijuana Advance Directives: No Advance Directives Information Provided: No Physical Exam Vital Signs: Vital Signs: Last Vital Signs Temp 97.7 F 10/11/21 02:11 Pulse 101 H 10/11/21 04:40 Resp 17 10/11/21 04:40 BP 143/87 H 10/11/21 02:11 Pulse Ox 97 10/11/21 04:40 O2 Del Method 10/11/21 04:40 BMI result Body Mass Index 45.6 Appearance: Alert. Oriented X3. Anxious mild acute distress. Eyes: Pupils equal, round and reactive to light. ENT: Pharynx normal. Neck: Normal inspection. Neck supple. CVS: Normal heart rate and rhythm. Pulses normal. Respiratory: No respiratory distress. Breath sounds normal. Abdomen: Soft and mild epigastric ttp no rebound or guarding, active dry heav ing, scant emesis noted Skin: Skin warm and dry. Normal skin color. Normal skin turgor. Extremities: No lower extremity edema. No calf ttp Neuro: Oriented X 3. No motor deficit. No sensory deficit. Course Course Course Narrative: repeat medications compazine/benadryl CBC pending - signed out to Dr. Encinas pending PO challenge and CBC MDM - Nausea/Vomiting/Diarrhea MDM Narrative Medical decision making narrative: 31 yo female with hx of PTSD, bipolar disorder, cyclical vomiting, THC use comes in with c/o I have cyclical vomiting she notes symptoms x 3 days. At this time will obtain labs, IM medications for symptom control. Dispo per results and clinical improvement. Lab Data Result diagrams: 10/11/21 04:06 Labs: Lab Results 10/11/21 10/11/21 10/11/21 Range/Units 03:36 04:06 05:32 Sodium 137 (135-145) mmol/L Potassium 4.0 (3.3-5.1) mmol/L Chloride 102 (96-108) mmol/L Carbon Dioxide 26 (22-29) mmol/L Anion Gap 13 (12-20) BUN 11 (9-16) mg/dL Creatinine 0.79 (0.5-1.4) mg/dL Estim Creat Clear Calc 153.8 Estimated GFR > 60 Random Glucose 140 H (60-115) mg/dL Calcium 9.6 (8.4-10.2) mg/dL Magnesium 2.2 (1.6-2.6) mg/dL Total Bilirubin 0.6 (0.0-1.0) mg/dL Direct Bilirubin 0.2 (0.0-0.5) mg/dL AST 13 (5-31) U/L ALT 11 (0-31) U/L Alkaline Phosphatase 81 (39-117) U/L Total Protein 7.7 (6.5-8.0) g/dL Albumin 4.4 (3.5-5.0) g/dL Beta HCG, Quant < 2 mIU/mL Urine Opiates Screen Not Detected (Not Detect) Urine Fentanyl Screen Not Detected (Not Detect) Ur Barbiturates Screen Not Detected (Not Detect) Ur Phencyclidine Scrn Not Detected (Not Detect) Ur Amphetamines Screen Not Detected (Not Detect) U Benzodiazepines Scrn Not Detected (Not Detect) Urine Cocaine Screen Not Detected (Not Detect) U Marijuana (THC) Screen POSITIVE H (Not Detect) COVID-19 (JAMMIE) Negative (Negative) COVID-19 Clin Com See Note Discharge Plan Discharge Clinical Impression: Cyclical vomiting Patient Disposition: Still a Patient Prescriptions: No Action metoclopramide HCl [Reglan] 10 mg tablet 10 mg PO Q6H PRN (Reason: nausea and vomiting) Qty: 20 0RF famotidine 20 mg tablet 20 mg PO DAILY Qty: 20 0RF quetiapine [Seroquel] 300 mg tablet 300 mg PO BEDTIME Qty: 5 0RF famotidine [Pepcid] 20 mg tablet 20 mg PO BID Qty: 20 0RF alum-mag hydroxide-simeth [Maalox Advanced] 200-200-20 mg/5 mL suspension 10 ml PO Q6H PRN (Reason: dyspepsia) Qty: 3000 0RF ondansetron HCl [Zofran] 4 mg tablet 4 mg PO Q6H PRN (Reason: nausea) Qty: 8 0RF
[2021-10-11] MEDS: Metoclopramide HCl 10 MG/2 ML VIAL IM (02:13)
[2021-10-11] MEDS: LORazepam 2 MG/ML VIAL IM (02:14)
--- NOTE | 2021-10-11 02:16 | PC.NURSE ---
pt was told that MD ordered Ativan and Reglan, pt became upset stating that she was told she would be getting haldol. this was brought to MD attention who noted a documented allergy to haldol in pt chart. pt made aware of this, and stated well I guess I don't have a choice pt was reminded that she absolutely has a choice, as she is her own person who can make her own decisions. pt then was agreeable to ativan.
--- NOTE | 2021-10-11 03:25 | PC.NURSE ---
pt resting in bed comfortably. pt is in no distress
[2021-10-11] MEDS: Ondansetron ODT 4 MG TAB.RAPDIS TRANSLINGU (04:10)
[2021-10-11 04:25] LABS: COVID-19 Test Negative (Negative); IDNOW Serial# 55D5AD1C
[2021-10-11 04:37] LABS: Alanine Aminotransferase 11 U/L (0-31); Albumin Level 4.4 g/dL (3.5-5.0); Alkaline Phosphatase 81 U/L (39-117); Anion Gap 13 (12-20); Aspartate Amino Transferase 13 U/L (5-31); Bilirubin Direct 0.2 mg/dL (0.0-0.5); Bilirubin Total 0.6 mg/dL (0.0-1.0); Blood Urea Nitrogen 11 mg/dL (9-16); Calcium 9.6 mg/dL (8.4-10.2); Carbon Dioxide 26 mmol/L (22-29); Chloride 102 mmol/L (96-108); Creatinine Clr Calc Pharmacy 153.8; Estimated Glomerular Filt Rate > 60; Glucose Random 140 mg/dL (60-115); Magnesium 2.2 mg/dL (1.6-2.6); Sodium 137 mmol/L (135-145); Total Protein 7.7 g/dL (6.5-8.0)
[2021-10-11 04:43] LABS: HCG Quantitative < 2 mIU/mL
--- NOTE | 2021-10-11 05:15 | PC.NURSE ---
pt standing up in doorway, pt appeared unsteady and was asked what she needed. pt did not respond. pt asked if she could sit back in bed so that she doesn't fall. pt became upset stating that she needs to go to the BR. pt was told that this is ok, that she had not communicated that she needed to go. pt ambulated to BR with steady gait. upon getting back to room pt began vomiting bile/dry heaving. pt requesting to speak with . notified
[2021-10-11 05:53] LABS: Amphetamine Screen Urine Not Detected (Not Detect); Barbiturates, Urine Not Detected (Not Detect); Benzodiazepines Screen Urine Not Detected (Not Detect); Cannabinoid Screen Urine POSITIVE (Not Detect); Cocaine Screen Urine Not Detected (Not Detect); Fentanyl, urine Not Detected (Not Detect); Opiate Screen Urine Not Detected (Not Detect); Phencyclidine Screen Urine Not Detected (Not Detect)
[2021-10-11] MEDS: Prochlorperazine Edisylate 10 MG/2 ML VIAL IM (06:55)
[2021-10-11] MEDS: diphenhydrAMINE HCL 50 MG/ML VIAL IM (06:55)
--- NOTE | 2021-10-11 07:55 | PC.NURSE ---
patient sleeping but arousable . a/ox4 . pearrla . lungs clear heart rate regular at . skin pink warm and dry . abdomen soft . non distended . positive bowel sounds in quadrants . patient obese . patient reports pain level of 8/10 also could be anxiety . patient unaware of what type of allergy happens when she takes Haldol . patient aware of plan of care .
--- NOTE | 2021-10-11 09:09 | PC.NURSE ---
po trial (yash jing), pt anushka well.
== END 2021-10-11 09:20 | disposition home or self-care (01) ==
PROVIDERS: Emergency Medicine; Emergency Provider Emergency Medicine Emergency Medical Services
DX: R11.15 Cyclical vomiting syndrome unrelated to migraine (principal); Z20.822 Contact with and (suspected) exposure to COVID-19; F41.9 Anxiety disorder, unspecified; F12.90 Cannabis use, unspecified, uncomplicated; Z90.49 Acquired absence of other specified parts of digestive tract; Z79.899 Other long term (current) drug therapy
CPT/HCPCS: 36415; 80048; 80076; 80307; 83735; 84702; 87635; 96372; 99284; J1200; J2060; J2765

== ENCOUNTER 2022-08-11 10:08 | Inpatient (IN) | payer OTHER, SELFPAY ==
[2022-08-11 10:17] VITALS: BP 134/98; PULSE 102; O2SAT 100
[2022-08-11 10:34] VITALS: BP 144/101; PULSE 94; RESP 20; TEMP 37.1; O2SAT 99; BMI 39.2
[2022-08-11 13:28] LABS: Appearance Urine Hazy; Color Urine Yellow; Glucose Urine UA Negative (Negative); Leukocyte Esterase Urine Negative (Negative); Nitrite Urine Negative (Negative); UMIC TRIGGER UACC YES; Urine Blood Negative (Negative); Urine Ketones Trace mg/dL (Negative); Urine Protein 100 (2+) mg/dL (Neg-Trace)
--- OUTSIDE RECORDS SUMMARY | 2022-08-11 13:30 | XMS_ITS | Continuity of Care Document ---
Author Name Unknown Organization [facility] Address [address] [place] [address]- Care Team Providers Care Instrument Specialist Name Role Phone Not on Staff, PCP Primary Care Physician Unavail able Encounter [facility] [place] Date(s): 10/15/20 - 11/14/20 [facility] [address] [place] [address]- Attending Physician: Terence Fajardo Admitting Physician: Terence Fajardo Referring Physician: AdmtrTerence Allergies, Adverse Reactions, Alerts Substance Reaction Severity Status codeine 1 Active Haldol Active 1reaction was Headache per RN 02/2016 admission Medications Ativan 0.5 mg oral tablet 1 tablet = 0.5 mg, By Mouth, 3 times a day, PRN for anxiety, 0 Refills, Maintenance, 06/29/19 9:46:00 EDT, Tablet Start Date: 06/29/19 Status: Ordered cholestyramine 4 g/5.5 g oral powder for reconstitution = 4 Gm, By Mouth, Daily, # 231 Gm, 1 Refills, Maintenance, 04/11/20 16:24:00 EST, [id number], 170, cm, 01/29/20 9:23:00 EST, Height, 113.3, kg, 04/26/18 8:34:00 EST, Dry Weight Start Date: 04/11/20 Status: Ordered ondansetron 4 mg oral tablet, disintegrating 1 tablet = 4 mg, By Mouth, 4 times a day, PRN Nausea & Vomiting, # 60 tablet, 0 Refills, Maintenance, 05/23/20 18:18:00 EST, [id number], Partial fill upon patient request if the prescription is for a schedule II opioid drug., 170, cm, 05/22/20... Start Date: 05/23/20 Stop Date: 06/06/20 Status: Ordered PriLOSEC OTC 20 mg oral delayed release tablet 1 tablet = 20 mg, By Mouth, Daily, 0 Refills, Maintenance, 06/29/19 9:47:00 EDT Start Date: 06/29/19 Status: Ordered Seroquel 400 mg, By Mouth, Daily, Refills 0, Maintenance, 02/25/16 9:01:26 Start Date: 02/25/16 Status: Ordered SEROquel 200 mg oral tablet 200 mg, 1, tablet, By Mouth, 2 times a day, take morning and afternoon, # 60 tablet, Refills 0, Maintenance, 02/25/16 13:57:50 Start Date: 02/25/16 Status: Ordered Valtrex 500 mg oral tablet 500 mg, 1, tablet, By Mouth, Daily, Refills 0, Maintenance, 06/29/19 9:47:00 EDT Start Date: 06/29/19 Status: Ordered Zofran 4 mg oral tablet 1 tablet = 4 mg, By Mouth, Every 8 hours, 0 Refills, Maintenance, 06/29/19 9:47:00 EDT Start Date: 06/29/19 Status: Ordered Problem List Condition Effective Dates Status Health Status Inform ant Bipolar disorder(Confirmed) Active Cyclical vomiting(Confirmed) Active GERD (gastroesophageal reflu x disease)(Confirmed) Active Herpes(Confirmed) Active PTSD (post-traumatic stress disorder)(Confirmed) Active Social History Social History Type Response Smoking Status Never (less than 100 in lifetime) entered on: 05/23/20 Sex
--- OUTSIDE RECORDS SUMMARY | 2022-08-11 13:30 | XMS_ITS | Continuity of Care Document ---
Author Name Unknown Organization [facility] e Medicine Address [address], 4t [address] [place] [address]- Care Team Providers Care Communications Electrician Supervisor Name Role Phone Geeta MITCHELL, Yaneth Primary Care Physician Encounter [facility] Date(s): 05/27/22 - 06/26/22 [facility] Rep[facility] [address], 4th [address] [place] [address]- Allergies, Adverse Reactions, Alerts Substance Reaction Severity Status codeine 1 Active Haldol Active 1reaction was Headache per RN 02/2016 admission Immunizations Given and Recorded Vaccine Date Status Refusal Reason [id number] bivalent booster vax 01/28/22 Recorded SARS-CoV-2 (COVID-19) mRNA-1273 vaccine 02/07/21 R ecorded SARS-CoV-2 (COVID-19) mRNA-1273 vaccine 05/23/20 R ecorded SARS-CoV-2 (COVID-19) mRNA-1273 vaccine 04/25/20 R ecorded hepatitis B adult vaccine 12/23/19 Recorded Human Papillomavirus Vaccine 11/01/18 Recorded Human Papillomavirus Vaccine 08/03/09 Recorded Human Papillomavirus Vaccine 02/23/08 Recorded tetanus/diphtheria/pertussis, acel(Tdap) 09/30/17 Recorded tetanus/diphtheria/pertussis, acel(Tdap) 08/03/09 Recorded Varicella Virus Vaccine 08/03/09 Recorded Varicella Virus Vaccine 08/17/02 Recorded Meningococcal Conjugate Vaccine 02/23/08 Recorded tetanus-diphtheria toxoids (Td) 02/23/04 Recorded hepatitis B pediatric vaccine 11/13/93 Recorded hepatitis B pediatric vaccine 05/15/93 Recorded hepatitis B pediatric vaccine 92 Recorded Haemophilus B conjugate (HbOC) vaccine 02/08/93 Re corded Haemophilus B conjugate (HbOC) vaccine 92 Re corded Haemophilus B conjugate (HbOC) vaccine 92 Re corded Medications Ativan 0.5 mg oral tablet 1 tablet = 0.5 mg, By Mouth, 3 times a day, PRN for anxiety, 0 Refills, Maintenance, 06/29/19 9:46:00 EDT, Tablet Start Date: 06/29/19 Status: Ordered cholestyramine 4 g/5.5 g oral powder for reconstitution = 4 Gm, By Mouth, Daily, # 231 Gm, 1 Refills, Maintenance, 04/12/21 12:34:00 EST, [facility]/pharmacy #[id number], 172.5, cm, 11/23/20 10:06:00 EDT, Height Start Date: 04/12/21 Status: Ordered clindamycin 1% topical gel 1 application, Topically, 2 times a day, apply a thin film to affected area after washing, # 30 Gm,3 Refills, Maintenance, 06/02/22 16:25:00 EDT, Gel, [facility]/pharmacy #[id number], Partial fill upon patient request if the prescription is for a schedule II opio... Start Date: 06/02/22 Status: Ordered doxycycline hyclate 100 mg oral tablet 1 tablet = 100 mg, By Mouth, 2 times a day, for 5 days, Begin two days prior to procedure. Take twice daily with food (breakfast and dinner) to minimize abdominal discomfort, # 10 tablet, 0 Refills, Acute 06/30/22 10:12:00 EDT, 06/25/22 10:12:00 EDT,... Start Date: 06/25/22 Stop Date: 06/30/22 Status: Ordered medroxyPROGESTERone 10 mg oral tablet 1, tablet, By Mouth, Daily, # 10 tablet, Refills 0, Maintenance, 05/08/22 8:02:00 EST, Route to Pharmacy Electronically, [facility] STORE [id number], 172.5, cm, 04/24/22 16:36:00 EST, Height Start Date: 05/08/22 Stop Date: 05/18/22 Status: Ordered MetFORMIN (Eqv-Glucophage XR) 500 mg oral tablet, extended release 1 tablet = 500 mg, By Mouth, Daily, with largest meal of the day, # 90 tablet, 1 Refills, Maintenance, 05/13/22 12:06:00 EST, [id number], Partial fill upon patient request if the prescriptionis for a schedule II opioid drug., 172.5, cm, 05/13... Start Date: 05/13/22 Status: Ordered omeprazole 20 mg oral enteric coated capsule 1 capsule, By Mouth, Daily, # 30 capsule, 2 Refills, Maintenance, 05/03/22 7:41:00 EST, [id number], 172.5, cm, 04/24/22 16:36:00 EST, Height Start Date: 05/03/22 Status: Ordered Seroquel 400 mg, By Mouth, Daily, Refills 0, Maintenance, 02/25/16 9:01:26 Start Date: 02/25/16 Status: Ordered SEROquel 200 mg oral tablet 200 mg, 1, tablet, By Mouth, 2 times a day, take morning and afternoon, # 60 tablet, Refills 0, Maintenance, 02/25/16 13:57:50 Start Date: 02/25/16 Status: Ordered Valtrex 500 mg oral tablet 500 mg, 1, tablet, By Mouth, Daily, # 90 tablet, Refills 3, Tot. Refills 3, Maintenance, 05/30/22 14:31:00 EST, Route to Pharmacy Electronically, [id number], Partial fill upon patient requestif the prescription is for a schedule II opioid pili... Start Date: 05/30/22 Status: Ordered Vitamin D3 50,000 intl units oral capsule 1 capsule = 1,250 mcg, By Mouth, Every week, # 12 capsule, 0 Refills, Maintenance, 04/11/22 18:55:00 EST, Capsule, [id number], Partial fill upon patient request if the prescription is for a schedule II opioid drug., 172.5, cm, 04/11/22 8:17:00... Start Date: 04/11/22 Status: Ordered Problem List Condition Confirmation Course Effective Dates Status H ealth Status Informant Cyclical vomiting Confirmed Active GERD (gastroesophageal reflux disease) Confirmed Active DAYLIN (generalized anxiety disorder) Confirmed Active Herpes Confirmed Active Hyperlipidemia Confirmed Active PCOS (polycystic ovarian syndrome) Confirmed Active PTSD (post-traumatic stress disorder) Confirmed Active Pre-diabetes Confirmed Active Severe obesity Confirmed Active Social History Social History Type Response Smoking Status Never (less than 100 in lifetime) entered on: 05/23/20 Sex Patient Care team information Care Team Personnel Name: Yaneth Connor MD Position: S Primary Care Physician Member Role: PCP Address: Address: [address] [place] [address]- Care Team Related Persons Name: SHERI CONTRERAS Address: home [address] [place] [address] Name: LUCY LANDRUM Address: [address] [place] [address] Name: FREDDY WEAVER
--- OUTSIDE RECORDS SUMMARY | 2022-08-11 13:30 | XMS_ITS | Continuity of Care Document ---
Author Name Unknown Organization [facility] Address [address] [place] [address]- Care Team Providers Care Drill Doctor Name Role Phone Yaneth Connor MD Primary Care Physician Encounter [facility] Date(s): 05/30/22 - 06/29/[address] [address] Attending Physician: Admtr, Terence Allergies, Adverse Reactions, Alerts Substance Reaction Severity Status codeine 1 Active Haldol Active 1reaction was Headache per RN 02/2016 admission Immunizations Given and Recorded Vaccine Date Status Refusal Reason [id number] bivalent booster vax 01/28/22 Recorded SARS-CoV-2 (COVID-19) [...] Gm, 1 Refills, Maintenance, 04/12/21 12:34:00 EST, [facility]/pharmacy #[id number], 172.5, cm, 11/23/20 10:06:00 EDT, Height Start Date: 04/12/21 Status: Ordered clindamycin 1% topical gel 1 application, Topically, 2 times a day, apply a thin film to affected area after washing, # 30 Gm,3 Refills, Maintenance, 06/02/22 16:25:00 EDT, Gel, [id number], Partial fill upon patient request [...] 05/08/22 8:02:00 EST, Route to Pharmacy Electronically, [id number], 172.5, cm, 04/24/22 16:36:00 EST, Height Start [...] Refills, Maintenance, 05/03/22 7:41:00 EST, [id number], 172.5, cm, 04/24/22 16:36:00 EST, Height Start [...] Team Personnel Name: Yaneth Connor MD Position: [facility] Primary Care Physician Member Role: PCP Address: Address: [address] [place] [address]- Care Team Related Persons Name: SHERI CONTRERAS Address: [address] [place] [address] Name: LUCY LANDRUM Address: [address] [place] [address] Name: FREDDY WEAVER
--- OUTSIDE RECORDS SUMMARY | 2022-08-11 13:30 | XMS_ITS | Continuity of Care Document ---
Author Name Unknown Organization [facility] e Medicine Address [address] [facility] [facility], 4[address] [place] [address]- Care Team Providers Care Yacht Builder Name Role Phone Geeta MITCHELL, Yaneth Primary Care Physician Encounter [facility] Date(s): 05/27/22 - 06/26/22 [facility] Reproductive Medicine [address] [facility] [facility], 4th [address] [place] [address]- Allergies, Adverse Reactions, Alerts Substance Reaction Severity Status codeine 1 Active Haldol Active 1reaction was Headache per RN 02/2016 admission Immunizations Given and Recorded Vaccine Date Status Refusal Reason [id number] bivalent booster vax 01/28/22 Recorded SARS-CoV-2 (COVID-19) [...] Gm, 1 Refills, Maintenance, 04/12/21 12:34:00 EST, [facility]/pharmacy #[id number], 172.5, cm, 11/23/20 10:06:00 EDT, Height Start Date: 04/12/21 Status: Ordered clindamycin 1% topical gel 1 application, Topically, 2 times a day, apply a thin film to affected area after washing, # 30 Gm,3 Refills, Maintenance, 06/02/22 16:25:00 EDT, Gel, [facility]/pharmacy #[id number], Partial fill upon patient request if [...] 05/08/22 8:02:00 EST, Route to Pharmacy Electronically, [facility] [id number], 172.5, cm, 04/24/22 16:36:00 EST, Height Start [...] Refills, Maintenance, 05/03/22 7:41:00 EST, [facility], 172.5, cm, 04/24/22 16:36:00 EST, Height Start [...] Care Physician Member Role: PCP Address: Address: [address] [place] [address]- Care Team Related Persons Name: SHERI CONTRERAS Address: [address] [place] [address] Name: LUCY LANDRUM Address: [address] [place] [address] Name: FREDDY WEAVER
--- OUTSIDE RECORDS SUMMARY | 2022-08-11 13:30 | XMS_ITS | Continuity of Care Document ---
Author Name Unknown Organization [facility] Address [address] [place] [address]- Care Team Providers Care Air Quality Consultant Name Role Phone Not on Staff, PCP Primary Care Physician Unavail able Encounter [facility] Date(s): 12/23/19 - 01/22/20 [facility] [address] [place] [address] Allergies, Adverse Reactions, Alerts Substance Reaction Severity Status codeine 1 Active Haldol Active 1reaction was Headache per RN 02/2016 admission Medications Ativan 0.5 mg oral tablet 1 tablet = 0.5 mg, By Mouth, 3 times a day, PRN for anxiety, 0 Refills, Maintenance, 06/29/19 9:46:00 EDT, Tablet Start Date: 06/29/19 Status: Ordered benztropine 1 mg oral tablet 1 mg, 1, tablet, By Mouth, 2 times a day, # 60 tablet, Refills 0, Tot. Refills 0, Maintenance, 02/26/16 11:07:35, Route to Pharmacy Electronically, [id number], [facility]/pharmacy #[id number] Start Date: 02/26/16 Status: Ordered cholestyramine 4 g/5.5 g oral powder for reconstitution = 4 Gm, By Mouth, Daily, # 231 Gm, 1 Refills, Maintenance, 07/02/19 13:44:00 EDT, [facility]/pharmacy #[id number], 170, cm, 01/15/18 15:15:00 EDT, Height, 113.3, kg, 04/26/18 8:34:00 EST, Dry Weight Start Date: 07/02/19 Status: Ordered cloNIDine 0.1 mg oral tablet 0.1 mg, 1, tablet, By Mouth, 2 times a day, Refills 0, Maintenance, 06/29/19 9:46:00 EDT Start Date: 06/29/19 Status: Ordered PriLOSEC OTC 20 mg oral delayed release tablet 1 tablet = 20 mg, By Mouth, Daily, 0 Refills, Maintenance, 06/29/19 9:47:00 EDT Start Date: 06/29/19 Status: Ordered Promethazine 0 Refills, Maintenance, 06/29/19 9:47:00 EDT Start [...]
--- OUTSIDE RECORDS SUMMARY | 2022-08-11 13:30 | XMS_ITS | Continuity of Care Document ---
Author Name Unknown Organization [facility] Address [address] [facility], [address] [place] [address]- Care Team Providers Care Track Welder Name Role Phone Geeta MITCHELL, Yaneth Primary Care Physician Encounter [facility] Date(s): 05/01/22 - 06/01/22 [facility] Reproductive [facility] [address] [facility], [address] [place] [address]- Attending Physician: Vee Otero MD Allergies, Adverse Reactions, Alerts Substance Reaction Severity Status codeine 1 Active Haldol Active 1reaction was Headache per RN 02/2016 admission Immunizations Given and Recorded Vaccine Date Status Refusal Reason [id number] bivalent booster vax 01/28/22 Recorded SARS-CoV-2 (COVID-19) [...] Gm, 1 Refills, Maintenance, 04/12/21 12:34:00 EST, [facility]/pharmacy #[id number], 172.5, cm, 11/23/20 10:06:00 EDT, Height Start Date: 04/12/21 Status: Ordered medroxyPROGESTERone 10 mg oral tablet 1, tablet, By Mouth, Daily, # 10 tablet, Refills 0, Maintenance, 05/08/22 8:02:00 EST, Route to Pharmacy Electronically, [id number], 172.5, cm, 04/24/22 16:36:00 EST, Height Start Date: 05/08/22 Stop Date: 05/18/22 Status: Ordered MetFORMIN (Eqv-Glucophage XR) 500 mg oral tablet, extended release 1 tablet = 500 mg, By Mouth, Daily, with largest meal of the day, # 90 tablet, 1 Refills, Maintenance, 05/13/22 12:06:00 EST, [facility]/pharmacy #[id number], Partial fill upon patient request if the prescriptionis for a schedule II opioid drug., 172.5, cm, 05/13... Start Date: 05/13/22 Status: Ordered omeprazole 20 mg oral enteric coated capsule 1 capsule, By Mouth, Daily, # 30 capsule, 2 Refills, Maintenance, 05/03/22 7:41:00 EST, [facility], 172.5, cm, 04/24/22 16:36:00 EST, Height Start Date: 05/03/22 Status: Ordered Multivitamins with Folic Acid 1 mg oral tablet 1 tablet, By Mouth, Daily, # 30 tablet, 11 Refills, Maintenance, 04/24/22 16:04:00 EST, Tablet, [id number], Partial fill upon patient request if the prescription is for a schedule II opioid drug., 1 tablet By Mouth Daily, 172.5, cm, 04/11/22 8... Start Date: 04/24/22 Status: Ordered Seroquel 400 mg, By Mouth, [...] 05/30/22 14:31:00 EST, Route to Pharmacy Electronically, [facility]/pharmacy #[id number], Partial fill upon patient requestif the prescription is for a schedule II opioid pili... Start Date: 05/30/22 Status: Ordered Vitamin D3 50,000 intl units oral capsule 1 capsule = 1,250 mcg, By Mouth, Every week, # 12 capsule, 0 Refills, Maintenance, 04/11/22 18:55:00 EST, Capsule, [facility]/pharmacy #[id number], Partial fill upon patient request if [...] Care Physician Member Role: PCP Address: Address: [address] [place] [address]- Care Team Related Persons Name: SHERI CONTRERAS Address: [address] [place] [address] Name: LUCY LANDRUM Address: [address] [place] [address] Name: FREDDY WEAVER
--- OUTSIDE RECORDS SUMMARY | 2022-08-11 13:30 | XMS_ITS | Continuity of Care Document ---
Author Name Unknown Organization [facility] Address [address] [place] [address]- Care Team Providers Care Nutter Up Name Role Phone Not on Staff, PCP Primary Care Physician Unavail able Encounter [facility] Date(s): 12/30/19 - 01/29/20 [facility] [address] [place] [address] Attending Physician: Terence Fajardo Admitting Physician: AdmtrTerence Referring Physician: Admtr, Terence Allergies, Adverse Reactions, Alerts [...] Maintenance, 02/26/16 11:07:35, Route to Pharmacy Electronically, [id number], [facility]/pharmacy #[id number] Start Date: 02/26/16 Status: Ordered cholestyramine 4 g/5.5 g oral powder for reconstitution = 4 Gm, By Mouth, Daily, # 231 Gm, 1 Refills, Maintenance, 07/02/19 13:44:00 EDT, [id number], 170, cm, 01/15/18 15:15:00 EDT, Height, 113.3, kg, 04/26/18 8:34:00 EST, Dry Weight Start Date: 07/02/19 Status: Ordered cloNIDine 0.1 mg oral tablet 0.1 mg, 1, tablet, By Mouth, 2 times a day, Refills 0, Maintenance, 06/29/19 9:46:00 EDT Start Date: 06/29/19 Status: Ordered ibuprofen 600 mg oral tablet 600 mg, 1, tablet, By Mouth, 4 times a day, # 30 tablet, Refills 0, Tot. Refills 0, Acute 02/05/20 13:27:00 EST, 01/29/20 13:27:00 EST, Route to Pharmacy Electronically, [facility]/pharmacy #[id number], 170, cm, 01/29/20 9:23:00 EST, Height, 113.3, kg, 04/26/18 8:... Start Date: 01/29/20 Stop Date: 02/05/20 Status: Ordered PriLOSEC OTC 20 mg oral [...]
--- OUTSIDE RECORDS SUMMARY | 2022-08-11 13:30 | XMS_ITS | Continuity of Care Document ---
Author Name Unknown Organization [facility] Address [address] [place] [address]- Care Team Providers Care Supervisor Audit Clerks Name Role Phone Not on Staff, PCP Primary Care Physician Unavail able Encounter [facility] Date(s): 05/02/20 - 05/09/20 [facility] [address] [place] [address]- Encounter Diagnosis Neck pain(Discharge Diagnosis) - 05/02/20 Attending Physician: Elizabeth Cha MD Allergies, Adverse Reactions, Alerts Substance Reaction [...] Maintenance, 02/26/16 11:07:35, Route to Pharmacy Electronically, [id number], [facility]/pharmacy #[id number] Start Date: 02/26/16 Status: Ordered cholestyramine 4 g/5.5 g oral powder for reconstitution = 4 Gm, By Mouth, Daily, # 231 Gm, 1 Refills, Maintenance, 04/11/20 16:24:00 EST, [facility]/pharmacy #[id number], 170, cm, 01/29/20 9:23:00 EST, Height, 113.3, kg, 04/26/18 8:34:00 EST, Dry Weight Start Date: 04/11/20 Status: Ordered cloNIDine 0.1 mg oral tablet 0.1 mg, 1, tablet, By Mouth, 2 times a day, Refills 0, Maintenance, 06/29/19 9:46:00 EDT Start Date: 06/29/19 Status: Ordered naproxen 500 mg oral delayed release tablet 1 tablet = 500 mg, By Mouth, Every 12 hours, for 10 days, # 20 tablet, 0 Refills, Acute 05/12/20 15:50:00 EST, 05/02/20 15:50:00 EST, EC Tablet, [facility]/pharmacy #[id number], Partial fill upon patient request if the prescription is for a schedule II opioid drug... Start Date: 05/02/20 Stop Date: 05/12/20 Status: Ordered PriLOSEC OTC 20 mg oral [...] Start Date: 06/29/19 Status: Ordered Problem List Diagnosis Diagnosis Type Effective Dates Health Status Clini arabella Service Informant Neck pain Discharge Diagnosis 05/02/20 Vital Signs Most recent to oldest [Reference Range]: 1 Height 170 cm (05/02/20 3:25 PM) Oxygen Saturation [94-100 %] 99 % (05/02/20 3:25 PM) Pulse Rate [55-90 bpm] 105 bpm *H* (05/02/20 3:25 PM) Blood Pressure [90-138/55-84 mm Hg] 132/ 78mm Hg (05/02/20 3:25 PM) Respiratory Rate [16-30 br/min] 24 br/mi n (05/02/20 3:25 PM) Temperature [96.8-100.4 DegF] 97.5 DegF (05/02/20 3:25 PM) Mode of Delivery (Oxygen) Room air (05/02/20 3:25 PM) Blood pressure sites Arm, left (05/02/20 3:25 PM) Temperature Route Temporal (05/02/20 3:25 PM)
--- OUTSIDE RECORDS SUMMARY | 2022-08-11 13:30 | XMS_ITS | Continuity of Care Document ---
Author Name Unknown Organization [facility] Address [address] [place] [address]- Care Team Providers Care Bail Bonding Agent Name Role Phone Not on Staff, PCP Primary Care Physician Unavail able Encounter [facility] Date(s): 06/30/19 - 07/10/19 [facility] [address] [place] [address] [facility] Attending Physician: Admtherese, Terence Admitting Physician: Admtr, Terence Referring Physician: Admtr, Ar8 Allergies, Adverse Reactions, Alerts Substance Reaction Severity [...] Maintenance, 02/26/16 11:07:35, Route to Pharmacy Electronically, [id number], [id number] Start Date: 02/26/16 Status: Ordered cholestyramine [...]
--- OUTSIDE RECORDS SUMMARY | 2022-08-11 13:30 | XMS_ITS | Continuity of Care Document ---
Author Name Unknown Organization [facility] e Medicine Address [address] [facility], [address]t [address] [place] [address] [place] [address]- Care Team Providers Care Silverware Cleaner Name Role Phone Geeta MITCHELL, Yaneth Primary Care Physician Encounter [facility] Date(s): 06/25/22 - 08/03/22 [facility] [address] [facility], 4[address] [place] [address]- Attending Physician: Paula Quevedo MD, I Referring Physician: Vee Otero MD Allergies, Adverse Reactions, Alerts Substance Reaction Severity Status codeine 1 Active Haldol Active 1reaction was Headache per RN 02/2016 admission Immunizations Given and Recorded Vaccine Date Status Refusal Reason [id number] bivalent booster vax 01/28/22 Recorded SARS-CoV-2 (COVID-19) [...] Gm, 1 Refills, Maintenance, 04/12/21 12:34:00 EST, [facility]/pharmacy #[id number], 172.5, cm, 11/23/20 10:06:00 EDT, Height Start Date: 04/12/21 Status: Ordered clindamycin 1% topical gel 1 application, Topically, 2 times a day, apply a thin film to affected area after washing, # 30 Gm,3 Refills, Maintenance, 06/02/22 16:25:00 EDT, Gel, [facility]/pharmacy #[id number], Partial fill upon patient request if the prescription is for a schedule II opio... Start Date: 06/02/22 Status: Ordered medroxyPROGESTERone 10 mg oral tablet 1, tablet, By Mouth, Daily, # 10 tablet, Refills 0, Maintenance, 05/08/22 8:02:00 EST, Route to Pharmacy Electronically, [facility] STORE [id number], 172.5, cm, 04/24/22 16:36:00 EST, Height Start Date: 05/08/22 Stop Date: 05/18/22 Status: Ordered MetFORMIN (Eqv-Glucophage XR) 500 mg oral tablet, extended release 1 tablet = 500 mg, By Mouth, Daily, with largest meal of the day, # 90 tablet, 1 Refills, Maintenance, 05/13/22 12:06:00 EST, [facility]/pharmacy #[id number], Partial fill upon patient request if the prescriptionis for a schedule II opioid drug., 172.5, cm, 05/13... Start Date: 05/13/22 Status: Ordered omeprazole 20 mg oral enteric coated capsule 1 capsule, By Mouth, Daily, # 30 capsule, 2 Refills, Maintenance, 05/03/22 7:41:00 EST, [id number], 172.5, cm, 04/24/22 16:36:00 EST, Height Start [...] 05/30/22 14:31:00 EST, Route to Pharmacy Electronically, [facility]/pharmacy #[id number], Partial fill upon patient requestif the prescription is for a schedule II opioid pili... Start Date: 05/30/22 Status: Ordered Vitamin D3 50,000 intl units oral capsule 1 capsule = 1,250 mcg, By Mouth, Every week, # 12 capsule, 0 Refills, Maintenance, 04/11/22 18:55:00 EST, Capsule, [facility]/pharmacy #[id number], Partial fill upon patient request if [...] Team Personnel Name: Yaneth Connor MD Position: [facility] Primary Care Physician Member Role: PCP Address: Address: [address] [place] [address]- Care Team Related Persons Name: SHERI CONTRERAS Address: [address] [place] [address] Name: LUCY LANDRUM Address: [address] [place] [address] Name: FREDDY WEAVER
--- OUTSIDE RECORDS SUMMARY | 2022-08-11 13:30 | XMS_ITS | Continuity of Care Document ---
Author Name Unknown Organization [facility] Address [address] [facility] [address], 4t [address] [place] [address]- Care Team Providers Care Optical Coating Technician Name Role Phone Yaneth Connor MD Primary Care Physician [place] [facility] [place] 04/24/22 - 05/24/22 [facility] [address] [facility], 4th [address] [place] [address]- Allergies, Adverse Reactions, Alerts Substance Reaction Severity Status codeine 1 Active Haldol Active 1reaction was Headache per RN 02/2016 admission Immunizations Given and Recorded Vaccine Date Status Refusal Reason [id number] bivalent booster vax 01/28/22 Recorded SARS-CoV-2 (COVID-19) [...] 1 Refills, Maintenance, 04/12/21 12:34:00 EST, [facility]/pharmacy #[id number], 172.5, cm, 11/23/20 10:06:00 EDT, Height Start Date: 04/12/21 Status: Ordered medroxyPROGESTERone 10 mg oral tablet 1, tablet, By Mouth, Daily, # 10 tablet, Refills 0, Maintenance, 05/08/22 8:02:00 EST, Route to [facility]acy Electronically, [facility], 172.5, cm, 04/24/22 16:36:00 EST, Height Start Date: 05/08/22 Stop Date: 05/18/22 Status: Ordered MetFORMIN (Eqv-Glucophage XR) 500 mg oral tablet, extended release 1 tablet = 500 mg, By Mouth, Daily, with largest meal of the day, # 90 tablet, 1 Refills, Maintenance, 05/13/22 12:06:00 EST, [facility]/pharmacy #[id number], Partial fill upon patient request if the prescriptionis for a schedule II opioid drug., 172.5, cm, 05/13... Start Date: 05/13/22 Status: Ordered omeprazole 20 mg oral enteric coated capsule 1 capsule, By Mouth, Daily, # 30 capsule, 2 Refills, Maintenance, 05/03/22 7:41:00 EST, [facility], 172.5, cm, 04/24/22 16:36:00 EST, Height Start [...] mg, 1, tablet, By Mouth, Daily, # 30 tablet, Refills 5, Tot. Refills 5, Maintenance, 11/27/21 8:38:00 EDT, [facility] to [facility], [id number], Partial fill upon patient request if the prescription is for a schedule II opioid drug... Start Date: 11/27/21 Status: Ordered Vitamin D3 50,000 intl units [...] Team Personnel Name: Yaneth Connor MD Position: [facility] Primary Care Physician Member Role: PCP Address: Address: [address] [place] [address]- [place] Care Team Related Persons Name: SHERI CONTRERAS Address: home [address] [place] [address] Name: LUCY LANDRUM Address: home [address] [place] [address] Name: FREDDY WEAVER
--- OUTSIDE RECORDS SUMMARY | 2022-08-11 13:30 | XMS_ITS | Continuity of Care Document ---
Author Name Unknown Organization [facility] Address [address] [place] [address]- Care Team Providers Care Surgical Technology Instructor Name Role Phone Elyse Ferrell MD Primary Care Physician [place] [facility] [place]s): 04/12/21 - 05/15/21 [facility] [address] [place] [address]- Attending Physician: Faustino Logan MD Admitting Physician: Faustino Logan MD Referring Physician: Elyse Ferrell MD Allergies, Adverse Reactions, Alerts Substance Reaction Severity Status codeine 1 Active Haldol Active 1reaction was Headache per RN 02/2016 admission Immunizations Given and Recorded Vaccine Date Status Refusal Reason SARS-CoV-2 (COVID-19) mRNA-1273 vaccine 05/23/20 R ecorded [...] Gm, 1 Refills, Maintenance, 04/12/21 12:34:00 EST, [id number], 172.5, cm, 11/23/20 10:06:00 EDT, Height Start Date: 04/12/21 Status: Ordered omeprazole 20 mg oral delayed release tablet 1 tablet = 20 mg, By Mouth, 2 times a day, # 60 tablet, 3 Refills, Maintenance, 04/12/21 12:34:00 EST, EC Tablet, [id number], Partial fill upon patient request if the prescription is for a schedule II opioid drug., 172.5, cm, 11/23/20 10:06:00... Start Date: 04/12/21 Status: Ordered ondansetron 4 mg oral tablet, disintegrating 1 tablet = 4 mg, By Mouth, Every 8 hours, PRN Nausea & Vomiting, # 9 tablet, 0 Refills, Maintenance, 04/04/21 17:06:00 EST, Tablet, [id number], Partial fill upon patient request if the prescription is for a schedule II opioid drug., 172.5, cm,... Start Date: 04/04/21 Stop Date: 04/07/21 Status: Ordered PriLOSEC OTC 20 mg oral delayed release tablet 1 tablet = 20 mg, By Mouth, Daily, # 30 tablet, 5 Refills, Maintenance, 11/23/20 9:59:00 EDT, EC Tablet, [id number], Partial fill upon patient request if the prescription is for a schedule IIopioid drug., 172.5, cm, 11/23/20 9:29:00 EDT, Height Start Date: 11/23/20 Status: Ordered Seroquel 400 mg, By Mouth, [...]
--- OUTSIDE RECORDS SUMMARY | 2022-08-11 13:30 | XMS_ITS | Continuity of Care Document ---
Author Name Unknown Organization [facility] Address [address] [facility], 4t [address] [place] [address]- Care Team Providers Care Greeting Card Writer Name Role Phone Yaneth Connor MD Primary Care Physician Encounter [facility] [place] Date(s): 06/17/22 - 07/17/22 [facility] [address], 4th [address] [place] [address]- Allergies, Adverse Reactions, Alerts Substance Reaction Severity Status codeine 1 Active Haldol Active 1reaction was Headache per RN 02/2016 admission Immunizations Given and Recorded Vaccine Date Status Refusal Reason [id number] bivalent booster vax 01/28/22 Recorded SARS-CoV-2 (COVID-19) [...] Gm, 1 Refills, Maintenance, 04/12/21 12:34:00 EST, [facility]/pharmacy #[id number], 172.5, cm, 11/23/20 10:06:00 EDT, [...] 05/08/22 8:02:00 EST, Route to Pharmacy Electronically, [facility] 64735, 172.5, cm, 04/24/22 16:36:00 EST, Height Start [...] Refills, Maintenance, 05/03/22 7:41:00 EST, [facility], 172.5, cm, 04/24/22 16:36:00 EST, Height Start [...] 05/30/22 14:31:00 EST, Route to Pharmacy Electronically, [facility]/pharmacy #[id number], Partial fill upon patient requestif the prescription is for a schedule II opioid pili... Start Date: 05/30/22 Status: Ordered Vitamin D3 50,000 intl units oral capsule 1 capsule = 1,250 mcg, By Mouth, Every week, # 12 capsule, 0 Refills, Maintenance, 04/11/22 18:55:00 EST, Capsule, [facility]/pharmacy #[id number], Partial fill upon patient request if [...] Care Physician Member Role: PCP Address: Address: [address] [place] [address]- [place] Care Team Related Persons Name: BEN SHERI Address: home [address] [place] [address] Name: LUCY LANDRUM Address: home [address] [place] [address] Name: FREDDY WEAVER
--- OUTSIDE RECORDS SUMMARY | 2022-08-11 13:30 | XMS_ITS | Continuity of Care Document ---
Author Name Unknown Organization [facility] Address [address], 4t [address] [place] [address]- Care Team Providers Care Tractor Technician Name Role Phone Geeta MITCHELL, Yaneth Primary Care Physician Encounter [facility] Date(s): 05/02/22 - 06/01/22 [facility] [address], 4th [address] [place] [address]- Attending Physician: Terence Fajardo Admitting Physician: AdmtrTerence Referring Physician: Admtr ArSean Allergies, Adverse Reactions, Alerts Substance Reaction Severity Status codeine 1 Active Haldol Active 1reaction was Headache per RN 02/2016 admission Immunizations Given and Recorded Vaccine Date Status Refusal Reason [id number] bivalent booster vax 01/28/22 Recorded SARS-CoV-2 (COVID-19) [...] Gm, 1 Refills, Maintenance, 04/12/21 12:34:00 EST, [facility]/pharmacy #[id number], 172.5, cm, 11/23/20 10:06:00 EDT, Height Start Date: 04/12/21 Status: Ordered medroxyPROGESTERone 10 mg oral tablet 1, tablet, By Mouth, Daily, # 10 tablet, Refills 0, Maintenance, 05/08/22 8:02:00 EST, Route to Pharmacy Electronically, [facility], 172.5, cm, 04/24/22 16:36:00 EST, Height Start [...] capsule, 2 Refills, Maintenance, 05/03/22 7:41:00 EST, [facility], 172.5, cm, 04/24/22 16:36:00 EST, Height Start [...] Care Physician Member Role: PCP Address: Address: [address] [place] [address]- [place] Care Team Related Persons Name: SHERI CONTRERAS Address: home [address] [place] [address] Name: LUCY LANDRUM Address: [address] [place] [address] Name: FREDDY WEAVER
--- OUTSIDE RECORDS SUMMARY | 2022-08-11 13:30 | XMS_ITS | Continuity of Care Document ---
Author Name Unknown Organization [facility] e Medicine Address [address] [facility], 4t [address] [place] [address]- Care Team Providers Care Manager Of Enterprise Name Role Phone Yaneth Connor MD Primary Care Physician [place] [facility] [place] 06/25/22 - 07/25/22 [facility] Rep[facility]ductive [facility] [address] [facility], 4th [address] [place] [address]- Allergies, Adverse Reactions, Alerts Substance Reaction Severity Status codeine 1 Active Haldol Active 1reaction was Headache per RN 02/2016 admission Immunizations Given and Recorded Vaccine Date Status Refusal Reason [id number] bivalent booster vax 01/28/22 Recorded SARS-CoV-2 (COVID-19) [...] Gm, 1 Refills, Maintenance, 04/12/21 12:34:00 EST, [facility]/pharmacy #[id number], 172.5, cm, 11/23/20 10:06:00 EDT, Height [...] 05/08/22 8:02:00 EST, Route to Pharmacy Electronically, [facility] 7[facility], 172.5, cm, 04/24/22 16:36:00 EST, Height Start [...] Refills, Maintenance, 05/03/22 7:41:00 EST, [facility], 172.5, cm, 04/24/22 16:36:00 EST, Height Start [...] 05/30/22 14:31:00 EST, Route to Pharmacy Electronically, [facility]/pharmacy #[id number], Partial fill upon patient requestif the prescription is for a schedule II opioid pili... Start Date: 05/30/22 Status: Ordered Vitamin D3 50,000 intl units oral capsule 1 capsule = 1,250 mcg, By Mouth, Every week, # 12 capsule, 0 Refills, Maintenance, 04/11/22 18:55:00 EST, Capsule, [facility]/pharmacy #[id number], Partial fill upon patient request if [...] Care Physician Member Role: PCP Address: Address: [address] [place] [address]- [place] Care Team Related Persons Name: BEN SHERI Address: home [address] [place] [address] Name: LUCY LANDRUM Address: [address] [place] [address] Name: FREDDY WEAVER
--- OUTSIDE RECORDS SUMMARY | 2022-08-11 13:30 | XMS_ITS | Continuity of Care Document ---
Author Name Unknown Organization [facility] Address [address] [place] [address]- Care Team Providers Care Cosmetic Sales Name Role Phone Geeta MITCHELL, Yaneth Primary Care Physician En[place] [facility] [place] Date(s): 07/03/22 - 08/02/[address] [address]- Allergies, Adverse Reactions, Alerts Substance Reaction Severity Status codeine 1 Active Haldol Active 1reaction was Headache per RN 02/2016 admission Immunizations Given and Recorded Vaccine Date Status Refusal Reason [id number] bivalent booster vax 01/28/22 Recorded SARS-CoV-2 (COVID-19) [...] Gm, 1 Refills, Maintenance, 04/12/21 12:34:00 EST, [facility]/pharmacy #[id number], 172.5, cm, 11/23/20 10:06:00 [...] 05/08/22 8:02:00 EST, Route to Pharmacy Electronically, [facility] 92744, 172.5, cm, 04/24/22 16:36:00 EST, Height Start [...] Refills, Maintenance, 05/03/22 7:41:00 EST, [facility], 172.5, cm, 04/24/22 16:36:00 EST, Height Start [...] 05/30/22 14:31:00 EST, [id number] Partial fill upon patient requestif the prescription is for a schedule II opioid pili... Start Date: 05/30/22 Status: Ordered Vitamin D3 50,000 intl units oral capsule 1 capsule = 1,250 mcg, By Mouth, Every week, # 12 capsule, 0 Refills, Maintenance, 04/11/22 18:55:00 EST, Capsule, [facility]/pharmacy #[id number], Partial fill upon patient request [...] Care Physician Member Role: PCP Address: Address: [address] [place] [address]- Care Team Related Persons Name: BEN SHERI Address: home [address] [place] [address] Name: LUCY LANDRUM Address: home [address] [place] [address] Name: FREDDY WEAVER
--- OUTSIDE RECORDS SUMMARY | 2022-08-11 13:30 | XMS_ITS | Continuity of Care Document ---
Author Name [facility] Address [address] [place] [address]- Care Team Providers Care Material Controller Name Role Phone Not on Staff, PCP Primary Care Physician Unavail able Encounter [facility] Date(s): 12/23/19 - 03/04/[address] [address] Attending Physician: Maryann Fernandes MD Admitting Physician: Maryann Fernandes MD Allergies, Adverse Reactions, Alerts Substance Reaction [...] Maintenance, 02/26/16 11:07:35, Route to Pharmacy Electronically, [id number], [facility]/pharmacy #[id number] Start Date: 02/26/16 Status: Ordered cholestyramine 4 g/5.5 g oral powder for reconstitution = 4 Gm, By Mouth, Daily, # 231 Gm, 1 Refills, Maintenance, 07/02/19 13:44:00 EDT, [facility]/pharmacy #[id number], 170, cm, 01/15/18 15:15:00 EDT, Height, [...]
--- OUTSIDE RECORDS SUMMARY | 2022-08-11 13:30 | XMS_ITS | Continuity of Care Document ---
Author Name Unknown Organization [facility] Address [address] [place] [address]- Care Team Providers Care Manager Staffing Name Role Phone Not on Staff, PCP Primary Care Physician Unavail able [place] [facility] [place] 01[place]/20 [facility] [address] [place] [address] Attending Physician: Ed Sethi Jr, MD Admitting Physician: Ed Sethi Jr, MD Referring Physician: Ed Sethi Jr, MD Allergies, Adverse Reactions, Alerts Substance Reaction [...] Maintenance, 02/26/16 11:07:35, Route to Pharmacy Electronically, [id number], [facility]/pharmacy #[id number] Start Date: 02/26/16 Status: Ordered [...] 01/29/20 13:27:00 EST, Route to Pharmacy Electronically, [facility]/pharmacy #[id number], 170, cm, 01/29/20 9:23:00 EST, Height, [...]
--- OUTSIDE RECORDS SUMMARY | 2022-08-11 13:30 | XMS_ITS | Continuity of Care Document ---
Author Name Unknown Organization [facility] Address [address] [place] [address]- Care Team Providers Care Apprentice Plant Attendant Name Role Phone Not on Staff, PCP Primary Care Physician Unavail able [place] [facility] [place] - 09/08/[address] [address]- Discharge Disposition: A-D/C Walkout Attending Physician: Not on Staff, Attending MD Admitting Physician: Not on Staff, Admitting MD Referring Physician: Not on Staff, Referring MD Allergies, Adverse Reactions, Alerts Substance Reaction [...] Herpes(Confirmed) Active PTSD (post-traumatic stress disorder)(Confirmed) Active Vital Signs Most recent to oldest [Reference Range]: 1 Oxygen Saturation [94-100 %] 100 % (09/08/20 4:09 PM) Pulse Rate [55-90 bpm] 117 bpm *H* (09/08/20 4:09 PM) Mode of Delivery (Oxygen) Room air (09/08/20 4:09 PM) Social History Social History Type Response Smoking Status Never (less than 100 in lifetime) entered on: 05/23/20 Sex
--- OUTSIDE RECORDS SUMMARY | 2022-08-11 13:30 | XMS_ITS | Continuity of Care Document ---
Author Name Unknown Organization [facility] Address [address] [place] [address]- Care Team Providers Care Cementer Oil Well Name Role Phone Mariaelena MITCHELL, Elyse Zuniga Primary Care Physician Encounter [facility] Date(s): 10/31/21 - 11/30/21 [facility] [address] [place] [address]- Allergies, Adverse Reactions, Alerts Substance Reaction Severity Status codeine 1 Active Haldol Active 1reaction was Headache per RN 02/2016 admission Immunizations Given and Recorded Vaccine Date Status Refusal Reason SARS-CoV-2 (COVID-19) mRNA-1273 vaccine 02/07/21 R ecorded [...] Gm, 1 Refills, Maintenance, 04/12/21 12:34:00 EST, [facility]/pharmacy #[id number], 172.5, cm, 11/23/20 10:06:00 EDT, Height Start Date: 04/12/21 Status: Ordered doxycycline hyclate 100 mg oral capsule 1 capsule = 100 mg, By Mouth, 2 times a day, for 7 days, # 14 capsule, 0 Refills, Acute 12/05/21 17:11:00 EDT, 11/28/21 17:11:00 EDT, [facility]/pharmacy #[id number], Partial fill upon patient request if the prescription is for a schedule II opioid drug., 172.5, c... Start Date: 11/28/21 Stop Date: 12/05/21 Status: Ordered omeprazole 20 mg oral enteric coated capsule 1 capsule, By Mouth, Daily, # 30 capsule, 1 Refills, Maintenance, 11/16/21 16:40:00 EDT, [facility], 172.5, cm, 11/23/20 10:06:00 EDT, Height Start Date: 11/16/21 Status: Ordered Seroquel 400 mg, By Mouth, [...] 11/27/21 8:38:00 EDT, Route to Pharmacy Electronically, [facility]/pharmacy #[id number], Partial fill upon patient request if the prescription is for a schedule II opioid drug... Start Date: 11/27/21 Status: Ordered Problem List Condition Effective Dates Status Health Status Inform ant Bipolar disorder(Confirmed) Active Cyclical vomiting(Confirmed) Active GERD (gastroesophageal reflu x disease)(Confirmed) Active Herpes(Confirmed) Active PTSD (post-traumatic stress disorder)(Confirmed) Active Severe obesity(Confirmed) Active Social History Social History Type Response Smoking Status Never (less than 100 in lifetime) entered on: 05/23/20 Sex Care Team Personnel Name: Mariaelena MITCHELL, Elyse Zuniga Address: [address] [place] [address] [place] [address]-
--- OUTSIDE RECORDS SUMMARY | 2022-08-11 13:30 | XMS_ITS | Continuity of Care Document ---
Author Name Unknown Organization [facility] Address [address] [place] [address]- Care Team Providers Care Home Care Rn Name Role Phone Not on Staff, PCP Primary Care Physician Unavail able En[facility] [place] Date(s): 06/30/19 - 07/07/19 [facility] [address] [place] [address] [facility] Attending Physician: Abril MITCHELL, Elyse J Allergies, Adverse Reactions, Alerts Substance Reaction Severity [...] Maintenance, 02/26/16 11:07:35, Route to Pharmacy Electronically, [id number], [id number] Start Date: 02/26/16 Status: Ordered [...]
--- OUTSIDE RECORDS SUMMARY | 2022-08-11 13:30 | XMS_ITS | Continuity of Care Document ---
Author Name Unknown Organization [facility] ter Address [address] [place] [address]- Care Team Providers Care Biometrics Head Name Role Phone Not on Staff, PCP Primary Care Physician Unavail able [place] [facility] [place]/14/[place] - 08/14/[address] [address] [facility] Discharge Disposition: A-D/C Home Attending Physician: Terry Olivas DO Admitting Physician: Terry Olivas DO Referring Physician: Not on Staff, Referring MD [...] Maintenance, 02/26/16 11:07:35, Route to Pharmacy Electronically, [id number], [id number] Start Date: 02/26/16 Status: Ordered [...] 9:47:00 EDT Start Date: 06/29/19 Status: Ordered Results Radiology Reports * Exam Date Time Procedure Performing Provider Status 08/14/19 4:51 PM Chest Portable Lavon Murguia; Auth (Ve rified) Notes: (Chest Portable) Reason For Exam: Shortness of Breath RESULT: Chest Portable Chest Portable AP upright 1641 hours Refer to EMR; Reason: Shortness of Breath; Clinical Question(s): Pneumonia; Hx of Present Illness: Pt was cleaning bathroom with bleach and another agent. Pt became sob while cleaning with the product. 02 sats 98 ra COMPARISON: None. FINDINGS: LINES AND TUBES: None. LUNGS AND PLEURA: Clear lungs. Normal pulmonary vascularity. No pleural effusion. No pneumothorax. HEART, MEDIASTINUM AND PRANEETH: Heart is normal in size. Normal mediastinal and hilar contour. BONES AND SOFT TISSUES: No acute abnormality. IMPRESSION: No acute abnormality. WSN: [id number] Ordering Physician: Jordan Hawley Dictated By: Yuan Verdin DO Dictated Date/Time: 08/14/19 4:54 pm Reviewed By: Yuan Verdin DO Signed By: Yuan Verdin DO Signed Date/Time: 08/14/19 4:54 pm Transcribed By: BINA Transcribed Date/Time: 08/14/19 4:53 pm Vital Signs Most recent to oldest [Reference Range]: 1 2 3 Oxygen Saturation [94-100 %] 99 % (08/14/19 7:19 PM) 97 % (08/14/19 4:18 PM) 91 % *L* (08/14/19 4:11 PM) Pulse Rate [55-90 bpm] 88 bpm (08/14/19 7:19 PM) 99 bpm *H* (08/14/19 4:11 PM) Blood Pressure [90-138/55-84 mm Hg] 131/71mm Hg (08/14/19 7:19 PM) 112/72mm Hg (08/14/19 4:11 PM) Respiratory Rate [16-30 br/min] 17 br/min (08/14/19 7:19 PM) 18 br/min (08/14/19 4:11 PM) Temperature [96.8-100.4 DegF] 98.3 DegF (08/14/19 7:19 PM) 98.7 DegF (08/14/19 4:11 PM) Liters per Minute 2.5 L/min (08/14/19 4:18 PM) 0 L/min (08/14/19 4:11 PM) Mode of Delivery (Oxygen) Room air (08/14/19 7:19 PM) Nasal cannula (08/14/19 4:18 PM) Room air (08/14/19 4:11 PM) Blood pressure sites Arm, left (08/14/19 7:19 PM) Arm, left (08/14/19 4:11 PM) Temperature Route Oral (08/14/19 7:19 PM) Oral (08/14/19 4:11 PM)
--- OUTSIDE RECORDS SUMMARY | 2022-08-11 13:30 | XMS_ITS | Continuity of Care Document ---
Author Name Unknown Organization [facility] Address [address] [place] [address]- Care Team Providers Care Tanker Truck Driver Name Role Phone Not on Staff, PCP Primary Care Physician Unavail able [place] [facility] [place] 05/02/20 - 06/01/20 [facility] [address] [place] [address]- Attending Physician: Terence Fajardo Admitting Physician: Admtr, Terence Referring Physician: Admtr, [...]
--- OUTSIDE RECORDS SUMMARY | 2022-08-11 13:30 | XMS_ITS | Continuity of Care Document ---
Author Name Unknown Organization [facility] Address [address] [facility], 4t [address] [place] [address]- Care Team Providers Care Patrol Driver Name Role Phone Yaneth Connor MD Primary Care Physician En[place] [facility] [place] 04/25/22 - 05/25/22 [facility]ro[facility] [address] [facility], 4th [address] [place] [address]- Allergies, Adverse Reactions, Alerts Substance Reaction Severity Status codeine 1 Active Haldol Active 1reaction was Headache per RN 02/2016 admission Immunizations Given and Recorded Vaccine Date Status Refusal Reason [id number] bivalent booster vax 01/28/22 Recorded SARS-CoV-2 (COVID-19) [...] Gm, 1 Refills, Maintenance, 04/12/21 12:34:00 EST, [facility]/pharmacy #[id number], 172.5, cm, 11/23/20 10:06:00 EDT, Height Start Date: 04/12/21 Status: Ordered medroxyPROGESTERone 10 mg oral tablet 1, tablet, By Mouth, Daily, # 10 tablet, Refills 0, Maintenance, 05/08/22 8:02:00 EST, Route to [facility] Electronically, [facility], 172.5, cm, 04/24/22 16:36:00 EST, Height Start Date: 05/08/22 Stop Date: 05/18/22 Status: Ordered MetFORMIN (Eqv-Glucophage XR) 500 mg oral tablet, extended release 1 tablet = 500 mg, By Mouth, Daily, with largest meal of the day, # 90 tablet, 1 Refills, Maintenance, 05/13/22 12:06:00 EST, [facility]/pharmacy #[id number], Partial fill upon patient request if the prescriptionis for a schedule II opioid drug., 172.5, cm, 05/13... Start Date: 05/13/22 Status: Ordered omeprazole 20 mg oral enteric coated capsule 1 capsule, By Mouth, Daily, # 30 capsule, 2 Refills, Maintenance, 05/03/22 7:41:00 EST, [facility], 172.5, cm, 04/24/22 16:36:00 EST, Height Start [...] Team Personnel Name: Yaneth Connor MD Position: [facility] Primary Care Physician Member Role: PCP Address: Address: [address] [place] [address] [place] Care Team Related Persons Name: SHERI CONTRERAS Address: home [address] [place] [address] Name: LUCY LANDRUM Address: [address] [place] [address] Name: FREDDY WEAVER
--- OUTSIDE RECORDS SUMMARY | 2022-08-11 13:30 | XMS_ITS | Continuity of Care Document ---
Author Name Unknown Organization [facility] e Medicine Address [address] [facility], 4t [address] [place] [address]- Care Team Providers Care Retail Beauty Specialist Name Role Phone Yaneth Connor MD Primary Care Physician Encounter [facility] Date(s): 04/14/22 - 05/14/22 [facility] Reproductive Medicine [address] [facility], 4th [address] [place] [address]- Allergies, Adverse Reactions, Alerts Substance Reaction Severity Status codeine 1 Active Haldol Active 1reaction was Headache per RN 02/2016 admission Immunizations Given and Recorded Vaccine Date Status Refusal Reason [id number] bivalent booster vax 01/28/22 Recorded SARS-CoV-2 (COVID-19) [...] Gm, 1 Refills, Maintenance, 04/12/21 12:34:00 EST, [facility]/pharmacy #[id number], 172.5, cm, 11/23/20 10:06:00 EDT, Height Start Date: 04/12/21 Status: Ordered medroxyPROGESTERone 10 mg oral tablet 1, tablet, By Mouth, Daily, # 10 tablet, Refills 0, Maintenance, 05/08/22 8:02:00 EST, Route to [facility]acy Electronically, [id number], 172.5, cm, 04/24/22 16:36:00 EST, Height Start Date: 05/08/22 Stop Date: 05/18/22 Status: Ordered MetFORMIN (Eqv-Glucophage XR) 500 mg oral tablet, extended release 1 tablet = 500 mg, By Mouth, Daily, with largest meal of the day, # 90 tablet, 1 Refills, Maintenance, 05/13/22 12:06:00 EST, [facility]/pharmacy #[id number], Partial fill upon patient request if the prescriptionis for a schedule II opioid drug., 172.5, cm, 05/13... Start Date: 05/13/22 Status: Ordered omeprazole 20 mg oral enteric coated capsule 1 capsule, By Mouth, Daily, # 30 capsule, 2 Refills, Maintenance, 05/03/22 7:41:00 EST, [facility], 172.5, cm, 04/24/22 16:36:00 EST, Height Start [...] Team Personnel Name: Yaneth Connor MD Position: [facility] Primary Care Physician Member Role: PCP Address: Address: [address] [place] [address]- [place] Care Team Related Persons Name: SHERI CONTRERAS Address: home [address] [place] [address] Name: LUCY LANDRUM Address: home [address] [place] [address] Name: FREDDY WEAVER
--- OUTSIDE RECORDS SUMMARY | 2022-08-11 13:30 | XMS_ITS | Continuity of Care Document ---
Author Name Unknown Organization [facility] e Medicine Address [address] [facility] [facility], 4t [address] [place] [address]- Care Team Providers Care It Support Technician Name Role Phone Geeta MITCHELL, Yaneth Primary Care Physician Encounter [facility] Date(s): 06/25/22 - 08/02/22 [facility] Reproductive Medicine [address] [facility], 4[address] [place] [address]- Attending Physician: Pau Matamoros MD Referring Physician: Vee Otero MD Allergies, Adverse Reactions, Alerts Substance Reaction Severity Status codeine 1 Active Haldol Active 1reaction was Headache per RN 02/2016 admission Immunizations Given and Recorded Vaccine Date Status Refusal Reason [id number] bivalent booster vax 01/28/22 Recorded SARS-CoV-2 (COVID-19) [...] Pharmacy Electronically, [id number], 172.5, cm, 04/24/22 16:36:00 EST, Height Start Date: 05/08/22 Stop Date: 05/18/22 Status: Ordered MetFORMIN (Eqv-Glucophage XR) 500 mg oral tablet, extended release 1 tablet = 500 mg, By Mouth, Daily, with largest meal of the day, # 90 tablet, 1 Refills, Maintenance, 05/13/22 12:06:00 EST, [facility]/pharmacy #[id number], Partial fill upon patient request if the prescriptionis for a schedule II opioid drug., 172.5, cm, 05/13... Start Date: 05/13/22 Status: Ordered omeprazole 20 mg oral enteric coated capsule 1 capsule, By Mouth, Daily, # 30 capsule, 2 Refills, Maintenance, 05/03/22 7:41:00 EST, [facility], 172.5, cm, 04/24/22 16:36:00 EST, Height Start [...] 05/30/22 14:31:00 EST, Route to Pharmacy Electronically, [facility]/pharmacy #[id number], Partial fill upon patient requestif the prescription is for a schedule II opioid pili... Start Date: 05/30/22 Status: Ordered Vitamin D3 50,000 intl units oral capsule 1 capsule = 1,250 mcg, By Mouth, Every week, # 12 capsule, 0 Refills, Maintenance, 04/11/22 18:55:00 EST, Capsule, [facility]/pharmacy #[id number], Partial fill [...] Team Personnel Name: Yaneth Connor MD Position: [facility] Primary Care Physician Member Role: PCP Address: Address: [address] [place] [address]- Care Team Related Persons Name: SHERI CONTRERAS Address: home [address] [place] [address] Name: LUCY LANDRUM Address: home [address] [place] [address] Name: FREDDY WEAVER
--- OUTSIDE RECORDS SUMMARY | 2022-08-11 13:30 | XMS_ITS | Continuity of Care Document ---
Author Name Unknown Organization [facility] ter Address [address] [place] [address]- Care Team Providers Care Dinkey Engine Firer Name Role Phone Mariaelena MITCHELL, Elyse Zuniga Primary Care Physician Encounter [facility] Date(s): 04/04/21 - 04/04/[address] [address]- Discharge Disposition: A-D/C Home Attending Physician: Terry [...] EDT, Tablet Start Date: 06/29/19 Status: Ordered ondansetron 4 mg oral tablet, disintegrating 1 tablet = 4 mg, By Mouth, Every 8 hours, PRN Nausea & Vomiting, # 9 tablet, 0 Refills, Maintenance, 04/04/21 17:06:00 EST, Tablet, [facility]/pharmacy #[id number], Partial fill upon patient request if the prescription is for a schedule II opioid drug., 172.5, cm,... Start Date: 04/04/21 Stop Date: 04/07/21 Status: Ordered PriLOSEC OTC 20 mg oral delayed release tablet 1 tablet = 20 mg, By Mouth, Daily, # 30 tablet, 5 Refills, Maintenance, 11/23/20 9:59:00 EDT, EC Tablet, [facility]/pharmacy #[id number], Partial fill upon patient request [...] recent to oldest [Reference Range]: 1 2 Oxygen Saturation [94-100 %] 100 % (04/04/21 2:45 PM) 100 % (04/04/21 12:44 PM) Pulse Rate [55-90 bpm] 97 bpm *H* (04/04/21 2:45 PM) 94 bpm *H* (04/04/21 12:44 PM) Blood Pressure [90-138/55-84 mm Hg] 137/ 97mm Hg (04/04/21 2:45 PM) 140/100mm Hg *H* (04/04/21 12:44 PM) Respiratory Rate [16-30 br/min] 18 br/mi n (04/04/21 2:45 PM) 18 br/min (04/04/21 12:44 PM) Temperature [96.8-100.4 DegF] 98.3 DegF (04/04/21 12:44 PM) Mode of Delivery (Oxygen) Room air (04/04/21 2:45 PM) Room air (04/04/21 12:44 PM) Blood pressure sites Arm, right (04/04/21 2:45 PM) Arm, right (04/04/21 12:44 PM) Temperature Route Oral (04/04/21 12:44 PM) Social History Social History Type Response Smoking Status Never (less than 100 in lifetime) entered on: 05/23/20 Sex
--- OUTSIDE RECORDS SUMMARY | 2022-08-11 13:31 | XMS_ITS | Continuity of Care Document ---
Author Name Unknown Organization [facility] e Medicine Address [address] [facility], 4t [address] [place] [address]- Care Team Providers Care Water Treatment Plant Engineer Name Role Phone Yaneth Connor MD Primary Care Physician [place] [facility] [place] 04/11/22 - 04/18/22 [facility] Reproductive Medicine [address] [facility], 4th [address] [place] [address]- Attending Physician: Vee Otero MD Referring Physician: Mariaelena MITCHELL, Elyse Zuniga Allergies, Adverse Reactions, Alerts Substance Reaction Severity [...] Conjugate Vaccine 02/23/08 Recorded tetanus-diphtheria toxoids (Td) 12/3/04 Recorded hepatitis B pediatric vaccine 11/13/93 Recorded [...] Gm, 1 Refills, Maintenance, 04/12/21 12:34:00 EST, [facility]/pharmacy #[id number], 172.5, cm, 11/23/20 10:06:00 EDT, Height Start Date: 04/12/21 Status: Ordered omeprazole 20 mg oral enteric coated capsule 1 capsule, By Mouth, Daily, # 30 capsule, 2 Refills, Maintenance, 01/23/22 11:12:00 EDT, [id number], 172.5, cm, 11/27/21 8:06:00 EDT, Height Start Date: 01/23/22 Status: Ordered Provera 10 mg oral tablet 10 mg, 1, tablet, By Mouth, Daily, 1 tablet by mouth daily for 10 days, # 10 tablet, Refills 0, Tot. Refills 0, Maintenance, 04/11/22 9:40:00 EST, Route to Pharmacy Electronically, [facility]/pharmacy #[id number], Partial fill upon patient request if the prescript... Start Date: 04/11/22 Status: Ordered Seroquel 400 mg, By Mouth, [...] 11/27/21 8:38:00 EDT, Route to Pharmacy Electronically, [facility]/pharmacy #[id number], Partial fill upon patient request if the prescription is for a schedule II opioid drug... Start Date: 11/27/21 Status: Ordered Vitamin D3 50,000 intl units oral capsule 1 capsule = 1,250 mcg, By Mouth, Every week, # 12 capsule, 0 Refills, Maintenance, 04/11/22 18:55:00 EST, Capsule, [facility]/pharmacy #[id number], Partial fill upon patient request if the prescription is for a schedule II opioid drug., 172.5, cm, 04/11/22 8:17:00... Start Date: 04/11/22 Status: Ordered Problem List Condition Confirmation Course Effective Dates Status Health St atus Informant Bipolar disorder Confirmed Active Cyclical vomiting Confirmed Active GERD (gastroesophageal reflux disease) Confirmed Active Herpes Confirmed Active PTSD (post-traumatic stress disorder) Confirmed Active Severe obesity Confirmed Active Vital Signs Most recent to oldest [Reference Range]: 1 Height 172.5 cm (04/11/22 8:17 AM) Weight 145.2 kg (04/11/22 8:17 AM) Pulse Rate [55-90 bpm] 113 bpm *H* (04/11/22 8:17 AM) Body Mass Index [18.5-24.99 kg/m2] 48.8 kg/m2 *>HHI* (04/11/22 8:17 AM) Blood Pressure [90-138/55-84 mm Hg] 140/ 80mm Hg *H* (04/11/22 8:17 AM) Blood pressure sites Arm, right (04/11/22 8:17 AM) Weight Obtained Via Standing scale (04/11/22 8:17 AM) Social History Social History Type Response Smoking Status Never (less than 100 in lifetime) entered on: 05/23/20 Sex Note * Carmen Chahal [place]: PERFORM, SIGN, VERIFY Event Display: Patient Education/Instruction Authored Date: [id number] [facility] *[facility] Clinical Summary Name ANASTASIA LANDRUM Age 31 Years 1990 PCP Mariaelena MITCHELL, Elyse Zuniga PCP Visit Date 04/11/2022 07:56:00 Additional Instructions: Scheduled Appointments?? Future Appointments ?*[facility] ?[address]??[place],??[place],??[address] ?Phone:??--?Fax:??-- ?Appt. Date:??05/30/2022?1:40 PM ?Scheduled Provider:??Ziggy DENTON, Brook Leavitt ?*[facility] ?[address]??[place],??[place],??[address] ?Phone:??--?Fax:??-- ?Appt. Date:??06/13/2022?8:00 AM ?Scheduled Provider:??hSanna MITCHELL, Vee Goodwin Follow-Up Instructions ?? Diagnosis Female infertility, unspecified; Encounter for other general counseling and advice on procreation; Acquired absence of other genital organ(s); Personal history of other complications of , childbirth and the puerperium; Recurrent loss; Female infertility associated with anovulation; Polycystic ovarian syndrome; Morbid (severe) obesity due to excess calories Medications: Please continue your medications until treatment is completed or stopped by your provider. Discuss any questions related to medications with your provider. New Medications [id number], [address] [place] [phone], [phone] MedroxyPROGESTERone (Provera 10 mg oral tablet) 1 tab(s) Oral Daily. 1 tablet by mouth daily for 10days. Refills: 0. Next Dose: Medications to Continue with No Changes These medications were not printed or sent to your pharmacy Cholestyramine (cholestyramine 4 g/5.5 g oral powder for reconstitution) 4 gram Oral Daily. Refills: 1. Next Dose: Lorazepam (Ativan 0.5 mg oral tablet) 1 tab(s) Oral 3 times a day as needed for anxiety. Next Dose: Omeprazole (omeprazole 20 mg oral enteric coated capsule) 1 capsule Oral Daily. Refills: 2. Next Dose: Quetiapine (SEROquel 200 mg oral tablet) 1 tab(s) Oral twice a day. take morning and afternoon. Next Dose: Quetiapine (Seroquel) 400 Milligram Oral Daily. Next Dose: ValACYclovir (Valtrex 500 mg oral tablet) 1 tab(s) Oral Daily. Refills: 5. Next Dose: Allergy Info:?? Haldol; codeine Medications Given This Visit Future Orders ?Hemoglobin A1C (Monitoring)? Order Date:04/11/22?- Complete within?6 months ?Hysterosalpingogram? Order Date:05/12/22?- Complete by?05/19/22 Vital Signs Height 172.5 cm Weight 145.2 kg BMI 48.8 kg/m2 Blood Pressure 140 mm Hg/80 mm Hg Temperature Pulse Rate 113 bpm Respiratory Rate 02 Sat Mode of Delivery / You can now view a summary of your hospital visit from the comfort of your home through a free online portal called [employer]. [employer] is a website that allows you to securely view your medical information including discharge summary, medications and follow-up visits. ??You can alsosend a secure electronic message to your doctor???s office to request appointments, renew medications or just ask a question. You can enroll at [email or web address] or register during your next office visit. Disclaimer:?? The information provided is of a general nature and is intended to be used in conjunction with the recommendations and advice of your health care practitioner. ??Every effort has been made to ensure that the information provided is accurate and complete at the time it is provided to you however, as your needs change, or, as new ??information becomes available, different or additional instructions may be required. If you have questions, please consult with your primary care provider or pharmacist, as appropriate. ??This information is not intended to serve as substitution for assessment and evaluation by a qualified health care provider. If you do not have a primary care provider, you may find a [facility] provider by calling [facility] at [phone]. For information about the plan of care including goals and instructions for your diagnosis, please see the patient education orders section of this document. Patient Education Materials?? The content of this educational material or handout may have been modified, supplemented, or adapted from its original content and format to support your individualized medical care. Additional Provider Instructions: Fasting labs ordered for pt to have drawn today. Protocols for HSG and SONO reviewed. Pt will awaitto hear from nursing with negative HCG before beginning Provera. Pt will call in with Day 1 bleed to schedule HSG and SONO. Script sent to local pharmacy today. Information on PCOS, Weight Loss, Smoking Cessation and Donor Sperm reviewed and given to pt. Consents for Donor Sperm obtained and sent to Lab today. Pt to follow up once testing is complete. Work note given today. Patient Care team information Care Team Personnel Name: Yaneth Connor MD Position: [facility] Primary Care Physician Member Role: PCP Address: Address: [address] [place] [address]- [place] Care Team Related Persons Name: SHERI CONTRERAS Address: home [address] [place] [address] Name: LUCY LANDRUM Address: [address] [place] [address] Name: FREDDY WEAVER
--- OUTSIDE RECORDS SUMMARY | 2022-08-11 13:31 | XMS_ITS | Continuity of Care Document ---
Author Name Unknown Organization [facility] Address [address] [place] [address]- Care Team Providers Care Associate Accountant Name Role Phone Geeta MITCHELL, Yaneth Primary Care Physician Encounter [facility] [place] Date(s): 06/18/22 - 07/18/[address] [address]- Allergies, Adverse Reactions, Alerts Substance Reaction Severity Status codeine 1 Active Haldol Active 1reaction was Headache per RN 02/2016 admission Immunizations Given and Recorded Vaccine Date Status Refusal Reason [id number] bivalent booster vax 01/28/22 Recorded SARS-CoV-2 (COVID-19) [...] Gm, 1 Refills, Maintenance, 04/12/21 12:34:00 EST, [facility]/pharmacy #[id number], 172.5, cm, 11/23/20 10:06:00 EDT, [...] 05/08/22 8:02:00 EST, Route to Pharmacy Electronically, [facility] STORE [id number], 172.5, cm, 04/24/22 16:36:00 EST, Height Start [...] Refills, Maintenance, 05/03/22 7:41:00 EST, [facility], 172.5, cm, 04/24/22 16:36:00 EST, Height Start [...] 05/30/22 14:31:00 EST, [id number] Partial fill upon patient requestif the prescription is for a schedule II opioid pili... Start Date: 05/30/22 Status: Ordered Vitamin D3 50,000 intl units oral capsule 1 capsule = 1,250 mcg, By Mouth, Every week, # 12 capsule, 0 Refills, Maintenance, 04/11/22 18:55:00 EST, Capsule, [facility]/pharmacy #[id number], Partial fill upon patient request [...] Care Physician Member Role: PCP Address: Address: [address] [place] [address]- Care Team Related Persons Name: BEN SHERI Address: home [address] [place] [address] Name: LUCY LANDRUM Address: [address] [place] [address] Name: FREDDY WEAVER
--- OUTSIDE RECORDS SUMMARY | 2022-08-11 13:31 | XMS_ITS | Continuity of Care Document ---
Author Name Unknown Organization [facility] Karri Leigh [facility] Address [address] [facility], [address] [place] [address]- Care Team Providers Care Flying Teacher Name Role Phone Geeta MITCHELL, Yaneth Primary Care Physician Encounter [facility] [place] Date(s): 06/10/22 - 07/10/22 [facility] [employer] [facility] [address] [facility] [place], [place] [address] Attending Physician: Admtr, Ar8 Admitting Physician: Admtr, Ar8 Referring Physician: Admtr, Ar8 Allergies, Adverse Reactions, Alerts Substance Reaction Severity Status codeine 1 Active Haldol Active 1reaction was Headache per RN 02/2016 admission Immunizations Given and Recorded Vaccine Date Status Refusal Reason [id number] bivalent booster vax 01/28/22 Recorded SARS-CoV-2 (COVID-19) [...] Gm, 1 Refills, Maintenance, 04/12/21 12:34:00 EST, [facility]/pharmacy #[id number], 172.5, cm, 11/23/20 10:06:00 EDT, [...] EST, Route to Pharmacy Electronically, [facility], 172.5, cm, 04/24/22 16:36:00 EST, Height Start [...] capsule, 2 Refills, Maintenance, 05/03/22 7:41:00 EST, [facility] STORE [id number], 172.5, cm, 04/24/22 16:36:00 EST, Height Start [...] 05/30/22 14:31:00 EST, [id number] fill upon patient requestif the prescription is for a schedule II opioid pili... Start Date: 05/30/22 Status: Ordered Vitamin D3 50,000 intl units oral capsule 1 capsule = 1,250 mcg, By Mouth, Every week, # 12 capsule, 0 Refills, Maintenance, 04/11/22 18:55:00 EST, Capsule, [facility]/pharmacy #[id number], Partial fill upon patient request [...] Team Personnel Name: Yaneth Connor MD Position: [facility] Primary Care Physician Member Role: PCP Address: Address: [address] [place] [address] [place] Care Team Related Persons Name: SHERI CONTRERAS Address: [address] [place] [address] Name: LUCY LANDRUM Address: [address] [place] [address] Name: FREDDY WEAVER
--- OUTSIDE RECORDS SUMMARY | 2022-08-11 13:31 | XMS_ITS | Continuity of Care Document ---
Author Name Unknown Organization [facility] Address [address] [place] [address]- Care Team Providers Care Bicycle Ii Assembler Name Role Phone Geeta MITCHELL, Yaneth Primary Care Physician Encounter [facility] Date(s): 06/13/22 - 06/20/22 [facility] [address] [place] [address]- Attending Physician: Vee Otero MD Allergies, Adverse Reactions, Alerts Substance Reaction Severity Status codeine 1 Active Haldol Active 1reaction was Headache per RN 02/2016 admission Immunizations Given and Recorded Vaccine Date Status Refusal Reason [id number] bivalent booster vax 01/28/22 Recorded SARS-CoV-2 (COVID-19) [...] Route to Pharmacy Electronically, [facility] [id number], 172.5, cm, 04/24/22 16:36:00 EST, Height Start [...] Refills, Maintenance, 05/03/22 7:41:00 EST, [facility], 172.5, cm, 04/24/22 16:36:00 EST, Height Start [...] Pre-diabetes Confirmed Active Severe obesity Confirmed Active Vital Signs Most recent to oldest [Reference Range]: 1 Height 172.5 cm (06/13/22 8:10 AM) Social History Social History Type Response Smoking Status Never (less than 100 in lifetime) entered on: 05/23/20 Sex Note * Carmen Chahal MA: PERFORM, SIGN, VERIFY Event Display: Patient Education/Instruction Authored Date: [id number] [facility] *[facility] Clinical Summary Name ANASTASIA LANDRUM Age 31 Years 1990 PCP Yaneth Connor MD PCP Visit Date 06/13/2022 08:00:00 Additional Instructions: Scheduled Appointments?? Future Appointments ?*[facility] [address]??[place],??[place],??[address] ?Phone:??--?Fax:??-- ?Appt. Date:??08/01/2022?9:10 AM ?Scheduled Provider:??Yaneth Connor MD ?*[facility]RESPIRATORY PHYSICIAN??NON ?Phone:??--?Fax:??-- ?Appt. Date:??08/12/2022?4:00 PM ?Scheduled Provider:??[facility] Follow-Up Instructions ?? Diagnosis Antiphospholipid syndrome; Morbid (severe) obesity due to excess calories; Recurrent loss; Polycystic ovarian syndrome Medications: Please continue your medications until treatment is completed or stopped by your provider. Discuss any questions related to medications with your provider. Medications to Continue with No Changes These medications were not printed or sent to your pharmacy Cholecalciferol (Vitamin D3 50,000 intl units oral capsule) 1 capsule Oral every week. Refills: 0. Next Dose: Cholestyramine (cholestyramine 4 g/5.5 g oral powder for reconstitution) 4 gram Oral Daily. Refills: 1. Next Dose: Clindamycin Topical (clindamycin 1% topical gel) 1 abundio Topically twice a day. apply a thin film to affected area after washing. Refills: 3. Next Dose: Lorazepam (Ativan 0.5 mg oral tablet) 1 tab(s) Oral 3 times a day as needed for anxiety. Next Dose: MedroxyPROGESTERone (medroxyPROGESTERone 10 mg oral tablet) 1 tab(s) Oral Daily for 10 Days. Refills: 0. Next Dose: Metformin (MetFORMIN (Eqv-Glucophage XR) 500 mg oral tablet, extended release) 1 tab(s) Oral Daily.with largest meal of the day. Refills: 1. Next Dose: Multivitamin, ( Multivitamins with Folic Acid 1 mg oral tablet) 1 tab(s) Oral Daily. Refills: 11. Next Dose: Omeprazole (omeprazole 20 mg oral enteric coated capsule) 1 capsule Oral Daily. Refills: 2. Next Dose: Quetiapine (SEROquel 200 mg oral tablet) 1 tab(s) Oral twice a day. take morning and afternoon. Next Dose: Quetiapine (Seroquel) 400 Milligram Oral Daily. Next Dose: ValACYclovir (Valtrex 500 mg oral tablet) 1 tab(s) Oral Daily. Refills: 3. Next Dose: Allergy Info:?? Haldol; codeine Medications Given This Visit Future Orders ?No future orders Vital Signs Height 172.5 cm Weight BMI Blood Pressure / Temperature Pulse Rate Respiratory Rate 02 Sat Mode of Delivery / You can now view a summary of your hospital visit from the comfort of your home through a free online portal called [employer]. [employer] is a website that allows you to securely view your medical information including discharge summary, medications and follow-up visits. ??You can alsosend a secure electronic message to your doctor???s office to request appointments, renew medications or just ask a question. You can enroll at [email or web address] or register during your next office visit. [...] primary care provider, you may find a [facility] provider by calling [facility] [employer] Link at [phone]. For information about the plan of care including goals and instructions for your diagnosis, please see the patient education orders section of this document. Patient Education Materials?? The content of this educational material or handout may have been modified, supplemented, or adapted from its original content and format to support your individualized medical care. Additional Provider Instructions: MFM consult sent. Patient Care team information Care Team Personnel Name: Yaneth Connor MD Position: S Primary Care Physician Member Role: PCP Address: Address: [address] [place] [address]- [place] Care Team Related Persons Name: BEN SHERI Address: home [address] [place] [address] Name: LUCY LANDRUM Address: home [address] [place] [address] Name: FREDDY WEAVER
--- OUTSIDE RECORDS SUMMARY | 2022-08-11 13:31 | XMS_ITS | Continuity of Care Document ---
Author Name Unknown Organization [facility] ter Address [address] [place] [address]- Care Team Providers Care Optometrist President/Practice Owner Name Role Phone Not on Staff, PCP Primary Care Physician Unavail able [place] [facility] Date[place] 07/01/19 - 10/09/[address] [address]- [facility] Attending Physician: Ulises Torres MD Admitting Physician: Ulises Torres MD Allergies, Adverse Reactions, Alerts Substance Reaction [...] Maintenance, 02/26/16 11:07:35, Route to Pharmacy Electronically, [id number], [id number] Start Date: 02/26/16 Status: Ordered [...]
--- OUTSIDE RECORDS SUMMARY | 2022-08-11 13:31 | XMS_ITS | Continuity of Care Document ---
Author Name Unknown Organization [facility] Address [address] [place], [place] [address]- Care Team Providers Care Solutions Sales Consultant Name Role Phone Mariaelena MITCHELL, Elyse Zuniga Primary Care Physician Encounter [facility] Date(s): 04/15/21 - 05/15/21 [facility] [address] [place] [address]- Attending Physician: Admtr, Usman8 Admitting Physician: Admtr, Usman8 Referring Physician: Admtr, Ar8 Allergies, Adverse Reactions, [...]
--- OUTSIDE RECORDS SUMMARY | 2022-08-11 13:31 | XMS_ITS | Continuity of Care Document ---
Author Name Unknown Organization [facility] Address [address] [facility] [address] [place] [address]- Care Team Providers Care Claim Adjuster Name Role Phone Geeta MITCHELL, Yaneth Primary Care Physician [place] [facility] Date(s): 04/24/22 - 06/28/22 [facility] [address] [address]- Attending Physician: Not on Staff, Attending MD Referring Physician: Vee Otero MD Allergies, Adverse Reactions, Alerts Substance Reaction Severity Status codeine 1 Active Haldol Active 1reaction was Headache per RN 02/2016 admission Immunizations Given and Recorded Vaccine Date Status Refusal Reason [id number] bivalent booster vax 01/28/22 Recorded SARS-CoV-2 (COVID-19) [...] Gm, 1 Refills, Maintenance, 04/12/21 12:34:00 EST, [facility]/pharmacy #[id number], 172.5, cm, 11/23/20 10:06:00 EDT, Height Start Date: 04/12/21 Status: Ordered clindamycin 1% topical gel 1 application, Topically, 2 times a day, apply a thin film to affected area after washing, # 30 Gm,3 Refills, Maintenance, 06/02/22 16:25:00 EDT, Gel, [facility]/pharmacy #[id number], Partial fill upon patient [...] 05/08/22 8:02:00 EST, Route to Pharmacy Electronically, [facility] [id number], 172.5, cm, 04/24/22 16:36:00 EST, Height Start [...] Refills, Maintenance, 05/03/22 7:41:00 EST, [facility], 172.5, cm, 04/24/22 16:36:00 EST, Height Start [...] Team Personnel Name: Yaneth Connor MD Position: [facility] Primary Care Physician Member Role: PCP Address: Address: [address] [place] [address]- Care Team Related Persons Name: SHERI CONTRERAS Address: home [address] [place] [address] Name: LUCY LANDRUM Address: [address] [place] [address] Name: FREDDY WEAVER
--- OUTSIDE RECORDS SUMMARY | 2022-08-11 13:31 | XMS_ITS | Continuity of Care Document ---
Author Name Unknown Organization [facility] [employer] Address [address] [facility], 4t [place] [address]- Care Team Providers Care Polisher Aluminum Name Role Phone Geeta MITCHELL, Yaneth Primary Care Physician [place] [facility] [place] 06/24/22 - 07/24/22 [facility] [address] [facility], 4th [place] [address]- Allergies, Adverse Reactions, Alerts Substance Reaction Severity Status codeine 1 Active Haldol Active 1reaction was Headache per RN 02/2016 admission Immunizations Given and Recorded Vaccine Date Status Refusal Reason [id number] bivalent booster vax 01/28/22 Recorded SARS-CoV-2 (COVID-19) [...] Gm, 1 Refills, Maintenance, 04/12/21 12:34:00 EST, [facility]/pharmacy #[id number], 172.5, cm, 11/23/20 10:06:00 [...] 05/08/22 8:02:00 EST, Route to Pharmacy Electronically, [facility]ORE [id number], 172.5, cm, 04/24/22 16:36:00 EST, Height Start [...] Refills, Maintenance, 05/03/22 7:41:00 EST, [facility], 172.5, cm, 04/24/22 16:36:00 EST, Height Start [...] 05/30/22 14:31:00 EST, [id number] fill upon patient requestif the prescription is for a schedule II opioid pili... Start Date: 05/30/22 Status: Ordered Vitamin D3 50,000 intl units oral capsule 1 capsule = 1,250 mcg, By Mouth, Every week, # 12 capsule, 0 Refills, Maintenance, 04/11/22 18:55:00 EST, Capsule, [facility]/pharmacy #[id number], Partial fill upon patient [...] Care Physician Member Role: PCP Address: Address: [address] [place] [address]- Care Team Related Persons Name: BEN SHERI Address: [address] [place] [address] Name: LUCY LANDRUM Address: [address] [place] [address] Name: FREDDY WEAVER
--- OUTSIDE RECORDS SUMMARY | 2022-08-11 13:31 | XMS_ITS | Continuity of Care Document ---
Author Name Unknown Organization [facility] Address [address] [place] [address]- Care Team Providers Care Sticker On Name Role Phone Not on Staff, PCP Primary Care Physician Unavail able Encounter [facility] Date(s): 10/15/20 - 10/22/20 [facility] [address] [place] [address]- Encounter Diagnosis Cellulitis(Discharge Diagnosis) - 10/15/20 Attending Physician: Elizabeth Cha MD Referring Physician: Not on Staff, Referring [...] Dry Weight Start Date: 04/11/20 Status: Ordered Keflex monohydrate 500 mg oral capsule 1 capsule = 500 mg, By Mouth, 4 times a day, for 10 days, # 40 capsule, 0 Refills, Acute 10/25/20 14:47:00 EDT, 10/15/20 14:47:00 EDT, Capsule, [id number], Partial fill upon patient request if the prescription is for a schedule II opioid drug.... Start Date: 10/15/20 Stop Date: 10/25/20 Status: Ordered ondansetron 4 mg oral tablet, disintegrating 1 tablet = 4 mg, By Mouth, 4 times a day, PRN Nausea & Vomiting, # 60 tablet, 0 Refills, Maintenance, 05/23/20 18:18:00 EST, [facility]/pharmacy #[id number], Partial fill upon patient request [...] Herpes(Confirmed) Active PTSD (post-traumatic stress disorder)(Confirmed) Active Diagnosis Diagnosis Type Effective Dates Health Status Clini arabella Service Informant Cellulitis Discharge Diagnosis 10/15/20 Vital Signs Most recent to oldest [Reference Range]: 1 Height 170 cm (10/15/20 2:32 PM) Oxygen Saturation [94-100 %] 100 % (10/15/20 2:32 PM) Pulse Rate [55-90 bpm] 101 bpm *H* (10/15/20 2:32 PM) Blood Pressure [90-138/55-84 mm Hg] 124/ 80mm Hg (10/15/20 2:32 PM) Respiratory Rate [16-30 br/min] 24 br/mi n (10/15/20 2:32 PM) Temperature [96.8-100.4 DegF] 98.5 DegF (10/15/20 2:32 PM) Mode of Delivery (Oxygen) Room air (10/15/20 2:32 PM) Blood pressure sites Arm, left (10/15/20 2:32 PM) Temperature Route Temporal (10/15/20 2:32 PM) Social History Social History Type Response Smoking Status Never (less than 100 in lifetime) entered on: 05/23/20 Sex
--- OUTSIDE RECORDS SUMMARY | 2022-08-11 13:31 | XMS_ITS | Continuity of Care Document ---
Author Name Unknown Organization [facility] Address [address] [place] [address]- Care Team Providers Care Online Merchant Name Role Phone Mariaelena MITCHELL, Elyse Zuniga Primary Care Physician Encounter [facility] Date(s): 04/11/21 - 05/11/21 [facility] [address] [place] [address]- [place] Allergies, Adverse Reactions, Alerts Substance Reaction Severity [...]
--- OUTSIDE RECORDS SUMMARY | 2022-08-11 13:31 | XMS_ITS | Continuity of Care Document ---
Author Name Unknown Organization [facility] ter Address [address] [place] [address]- Care Team Providers Care Counter Stitcher Name Role Phone Not on Staff, PCP Primary Care Physician Unavail able Encounter [facility] [place] Date(s): 05/18/20 - 05/19/[address] [address]- Discharge Disposition: A-D/C Home Attending Physician: Clemencia Salmon DO Admitting Physician: Clemencia Salmon DO Referring Physician: Not on Staff, Referring [...] Maintenance, 02/26/16 11:07:35, Route to Pharmacy Electronically, [id number], [id number] Start Date: 02/26/16 Status: Ordered [...] EDT Start Date: 06/29/19 Status: Ordered Results Orders for Microbiology Reports Name Date Wet Prep 05/19/20 Microbiology Reports TEST:Wet Prep STATUS:Auth (Verified) BODY SITE: SOURCE:VAGINA COLLECTED DATE/TIME:05/19/20 2:17 AM Wet Prep SPECIMEN DESCRIPTION : VAGINAL SPECIMEN SPECIAL REQUESTS : NONE DIRECT EXAM : 1+ WHITE BLOOD CELLS 1+ YEAST NO TRICHOMONAS OBSERVED NO CLUE CELLS OBSERVED REPORT STATUS : FINAL 05/19/2020 Vital Signs Most recent to oldest [Reference Range]: 1 2 3 Oxygen Saturation [94-100 %] 98 % (05/19/20 6:09 AM) 96 % (05/19/20 3:36 AM) 94 % (05/19/20 1:27 AM) Pulse Rate [55-90 bpm] 114 bpm *H* (05/19/20 6:09 AM) 96 bpm *H* (05/19/20 3:36 AM) 97 bpm *H* (05/19/20 1:27 AM) Blood Pressure [90-138/55-84 mm Hg] 132/65mm Hg (05/19/20 6:09 AM) 130/71mm Hg (05/18/20 11:22 PM) Respiratory Rate [16-30 br/min] 18 br/min (05/19/20 6:09 AM) 18 br/min (05/19/20 3:36 AM) 16 br/min (05/19/20 1:27 AM) Temperature [96.8-100.4 DegF] 98 DegF (05/19/20 6:09 AM) 98.7 DegF (05/18/20 11:22 PM) Mode of Delivery (Oxygen) Room air (05/19/20 6:09 AM) Room air (05/19/20 3:36 AM) Room air (05/19/20 1:27 AM) Temperature Route Oral (05/19/20 6:09 AM) Oral (05/18/20 11:22 PM)
--- OUTSIDE RECORDS SUMMARY | 2022-08-11 13:31 | XMS_ITS | Continuity of Care Document ---
Author Name Unknown Organization [facility] ter Address [address] [place] [address]- Care Team Providers Care Echocardiography Radiology Technologist Name Role Phone Geeta MITCHELL, Yaneth Primary Care Physician [place] [facility] Date[place] 07/01/22 - 08/02/[address] [address]- Attending Physician: Jennifer Blount CNM Admitting Physician: Jennifer Blount CNM Referring Physician: Vee Otero MD Allergies, Adverse Reactions, Alerts Substance Reaction Severity Status codeine 1 Active Haldol Active 1reaction was Headache per RN 02/2016 admission Immunizations Given and Recorded Vaccine Date Status Refusal Reason [id number] bivalent booster vax 01/28/22 Recorded SARS-CoV-2 (COVID-19) [...] Gm, 1 Refills, Maintenance, 04/12/21 12:34:00 EST, [facility]/pharmacy #[id number], 172.5, cm, 11/23/20 10:06:00 EDT, Height Start Date: 04/12/21 Status: Ordered clindamycin 1% topical gel 1 application, Topically, 2 times a day, apply a thin film to affected area after washing, # 30 Gm,3 Refills, Maintenance, 06/02/22 16:25:00 EDT, Gel, [facility]/pharmacy #[id number], Partial fill upon patient request if the prescription is for a schedule II opio... Start Date: 06/02/22 Status: Ordered medroxyPROGESTERone 10 mg oral tablet 1, tablet, By Mouth, Daily, # 10 tablet, Refills 0, Maintenance, 05/08/22 8:02:00 EST, Route to Pharmacy Electronically, [facility] STORE [id number], 172.5, cm, 04/24/22 16:36:00 EST, Height Start Date: 05/08/22 Stop Date: 05/18/22 Status: Ordered MetFORMIN (Eqv-Glucophage XR) 500 mg oral tablet, extended release 1 tablet = 500 mg, By Mouth, Daily, with largest meal of the day, # 90 tablet, 1 Refills, Maintenance, 05/13/22 12:06:00 EST, [facility]/pharmacy #[id number], Partial fill upon patient request if the prescriptionis for a schedule II opioid drug., 172.5, cm, 05/13... Start Date: 05/13/22 Status: Ordered omeprazole 20 mg oral enteric coated capsule 1 capsule, By Mouth, Daily, # 30 capsule, 2 Refills, Maintenance, 05/03/22 7:41:00 EST, [facility], 172.5, cm, 04/24/22 16:36:00 EST, Height Start [...] 05/30/22 14:31:00 EST, Route to Pharmacy Electronically, [facility]/pharmacy #[id number], Partial fill upon patient requestif the prescription is for a schedule II opioid pili... Start Date: 05/30/22 Status: Ordered Vitamin D3 50,000 intl units oral capsule 1 capsule = 1,250 mcg, By Mouth, Every week, # 12 capsule, 0 Refills, Maintenance, 04/11/22 18:55:00 EST, Capsule, [facility]/pharmacy #[id number], Partial fill upon patient [...] Care Physician Member Role: PCP Address: Address: [address] [place] [address]- Care Team Related Persons Name: SHERI CONTRERAS Address: home [address] [place] [address] Name: LUCY LANDRUM Address: [address] [place] [address] Name: FREDDY WEAVER
--- OUTSIDE RECORDS SUMMARY | 2022-08-11 13:31 | XMS_ITS | Continuity of Care Document ---
Author Name Unknown Organization [facility] Address [address] [place] [address]- Care Team Providers Care Manual Machinist Name Role Phone Not on Staff, PCP Primary Care Physician Unavail able Encounter [facility] [place] Date(s): 04/11/20 - 05/11/20 [facility] [address] [place] [address]- Allergies, Adverse Reactions, Alerts Substance Reaction Severity [...] Maintenance, 02/26/16 11:07:35, Route to Pharmacy Electronically, [id number], [facility]/pharmacy #[id number] Start Date: 02/26/16 Status: Ordered cholestyramine 4 g/5.5 g oral powder for reconstitution = 4 Gm, By Mouth, Daily, # 231 Gm, 1 Refills, Maintenance, 04/11/20 16:24:00 EST, [facility]/pharmacy #[id number], 170, cm, 01/29/20 9:23:00 [...] 15:50:00 EST, 05/02/20 15:50:00 EST, EC Tablet, [facility]/pharmacy #[id number], Partial fill upon patient [...]
[2022-08-11] MEDS: Metoclopramide HCl 10 MG/2 ML VIAL IM (13:34)
[2022-08-11] MEDS: diphenhydrAMINE HCL 50 MG/ML VIAL IM (13:34)
[2022-08-11 13:36] LABS: Bacteria Urine 2+ (None Seen); Hyaline Casts Urine 0-2 /LPF (0-2); RBC Urine 0-2 /HPF (0-2); WBC Urine 0-5 /HPF (0-5)
[2022-08-11 13:37] LABS: Amphetamine Screen Urine Not Detected (Not Detect); Barbiturates, Urine Not Detected (Not Detect); Benzodiazepines Screen Urine Not Detected (Not Detect); Cannabinoid Screen Urine POSITIVE (Not Detect); Cocaine Screen Urine POSITIVE (Not Detect); Fentanyl, urine Not Detected (Not Detect); Opiate Screen Urine Not Detected (Not Detect); Phencyclidine Screen Urine Not Detected (Not Detect)
--- NOTE | 2022-08-11 13:37 | ED.PSYCH ---
HPI - Psych General Chief Complaint: Psychiatric Symptoms Stated Complaint: VOMITING D/T ANXIETY PER EMS Time Seen by Provider: 08/11/22 12:54 Source: patient History of Present Illness HPI Narrative: 32-year-old female with longstanding history cyclical vomiting and presents again today with similar symptoms but also reports significant anxiety and suicidal ideation. She otherwise denies any complaints. Related Data Previous Rx's Medication Instructions Recorded aluminum-mag hydroxide-simethicone 10 ml PO Q6H PRN dyspepsia #3,000 09/09/20 200 mg-200 mg-20 mg/5 mL oral susp mL (Maalox Advanced) famotidine 20 mg tablet (Pepcid) 20 mg PO BID #20 tabs 09/09/20 ondansetron HCl 4 mg tablet 4 mg PO Q6H PRN nausea #8 tabs 09/09/20 (Zofran) quetiapine 300 mg tablet (Seroquel) 300 mg PO BEDTIME #5 tabs 09/09/20 famotidine 20 mg tablet 20 mg PO DAILY #20 tabs 09/14/20 metoclopramide HCl 10 mg tablet 10 mg PO Q6H PRN nausea and 09/14/20 (Reglan) vomiting #20 tabs prochlorperazine 25 mg rectal 25 mg MS Q8H PRN nausea and 10/11/21 suppository (Compro) vomiting #24 ea Allergies Allergy/AdvReac Type Severity Reaction Status Date / Time codeine [CODEINE] Allergy Unknown UNKNOWN Verified 10/07/21 03:09 acetaminophen [From TYLENOL] AdvReac Mild HEADACHES Verified 10/07/21 03:09 From HALDOL Allergy Unknown Anaphylaxis Uncoded 10/07/21 03:09 Review of Systems Review of Systems: Pertinent positives and negatives as stated in HPI PMFSH Past Medical History Source: nursing notes reviewed Medical History Anxiety Bipolar 1 disorder Depression PTSD (post-traumatic stress disorder) Surgical History S/P cholecystectomy Social History Social History Alcohol intake: unknown Patient Tobacco Use Status: Never used Tobacco Use of substances other than those prescribed or required for medical reasons: Unknown Substance Use Type: Marijuana Advance Directives: No Advance Directives Information Provided: No Physical Exam Vital Signs: Vital Signs: Last Vital Signs Temp 97.6 F 08/11/22 17:08 Pulse 55 08/11/22 17:08 Resp 16 08/11/22 17:08 BP 141/79 H 08/11/22 17:08 Pulse Ox 98 08/11/22 17:08 O2 Del Method Room Air 08/11/22 17:08 BMI result Body Mass Index 39.2 VITAL SIGNS: Reviewed. GENERAL: Well developed, well nourished, in no acute distress. HEAD: Normocephalic/atraumatic EYES: PERRLA, EOMI EARS: Ext canals without abnormality NOSE: Nares patent bilateral OROPHARYNX: no oral lesions noted, posterior pharynx clear NECK: Supple, no adenopathy LUNGS: Normal breath sounds. No adventitious sounds or accessory muscle use. SpO2<99> CARDIOVASCULAR: Regular rate and rhythm without noted murmurs ABDOMEN: Soft, non-tender, non-distended with bowel sounds. MUSCULOSKELETAL: No tenderness, deformities, or effusions noted on gross inspection. EXTREMITIES: No cyanosis, clubbing or edema. SKIN: Inspection of the skin reveals no rashes NEUROLOGIC: Alert and oriented x 4. Strength and sensation to light touch were grossly intact x 4, cranial nerves 2-12 are grossly intact. Medications Administered Discontinued Medications Generic Name Dose Route Start Last Admin Trade Name Freq PRN Reason Stop Dose Admin Diphenhydramine HCl 50 mg 08/11/22 13:26 08/11/22 13:34 Diphenhydramine Hcl 50 Mg/Ml Vial IM 08/11/22 13:27 50 mg ONCE ONE Administration Haloperidol Lactate 2.5 mg 08/11/22 14:54 08/11/22 15:47 Haloperidol Lactate 5 Mg/Ml Vial IM 08/11/22 14:55 Not Given ONCE ONE Lorazepam 1 mg 08/11/22 14:54 08/11/22 15:47 Lorazepam 2 Mg/Ml Vial IM 08/11/22 14:55 1 mg ONCE ONE Administration Lorazepam 0.5 mg 08/11/22 16:45 08/11/22 16:51 Lorazepam 0.5 Mg Tablet PO 08/11/22 16:46 0.5 mg ONCE ONE Administration Metoclopramide HCl 10 mg 08/11/22 13:26 08/11/22 13:34 Metoclopramide Hcl 10 Mg/2 Ml Vial IM 08/11/22 13:27 10 mg ONCE ONE Administration Prochlorperazine Edisylate 10 mg 08/11/22 16:42 08/11/22 16:51 Prochlorperazine Edisylate 10 Mg/2 Ml Vial IM 08/11/22 16:43 10 mg ONCE ONE Administration Quetiapine Fumarate 150 mg 08/11/22 14:29 08/11/22 14:47 Quetiapine Fumarate 50 Mg Tablet PO 08/11/22 14:30 150 mg ONCE ONE Administration Quetiapine Fumarate 150 mg 08/11/22 16:42 08/11/22 16:51 Quetiapine Fumarate 50 Mg Tablet PO 08/11/22 16:43 150 mg ONCE ONE Administration Medical Decision Making Medical Decision Making MDM Narrative: 32-year-old female with known cyclical vomiting history, will be treated with combination of IM Benadryl/Reglan, will obtain lab work and UDS but also has complaints regarding suicidal ideation and has a history of bipolar disorder. She is currently on a one-to-one, will medically clear and then refer to that care team for further evaluation. It appears the patient has both as needed Ativan and Seroquel ordered which she was likely unable to take given her nausea and vomiting and as soon as the nausea vomiting are controlled will offer patient's home medications to her. Patient continues to vomit despite IM Benadryl/Reglan. She feels that her prescribed Seroquel might help her out and so trialed with a small amounts yash jing but patient continues to vomit. Patient will receive an EKG to evaluate for QT prolongation prior to administration of IM Haldol and Ativan, this is not a medication restrained but simply medication to treat the patient for her cyclical vomiting and anxiety in the setting of inability to tolerate oral intake. Finally able to get patient's vomiting under control with IM Compazine and then provided her with her home dose of Seroquel and Ativan and patient has been resting comfortably. Will obtain lab work, medically clear, care team consult is in and will sign out to CAROLINA Malcolm. Patient placed in physician observation because the patient needed more time for medical clearance and then crisis team evaluation. At the time observation was started the patient's vital signs were stable, patient is alert and oriented, neuro: Nonfocal, CV RRR, lungs clear Differential Diagnosis Please see the discussion above Lab Data Please see the discussion above 08/11/22 21:48 Labs: Lab Results 08/11/22 08/11/22 Range/Units 13:16 13:16 Urine Color Yellow Urine Appearance Hazy Urine pH 7.0 (5.0-9.0) Ur Specific [place] 1.020 (1.005-1.025) Urine Protein 100 (2+) H (Neg-Trace) mg/dL Urine Glucose (UA) Negative (Negative) mg/dL Urine Ketones Trace (Negative) mg/dL Urine Blood Negative (Negative) Urine Nitrite Negative (Negative) Ur Leukocyte Esterase Negative (Negative) Urine RBC 0-2 (0-2) /HPF Urine WBC 0-5 (0-5) /HPF Ur Squamous Epith Cells 3-5 (0-2) /HPF Urine Bacteria 2+ (None Seen) Hyaline Casts 0-2 (0-2) /LPF Urine Opiates Screen Not Detected (Not Detect) Urine Fentanyl Screen Not Detected (Not Detect) Ur Barbiturates Screen Not Detected (Not Detect) Ur Phencyclidine Scrn Not Detected (Not Detect) Ur Amphetamines Screen Not Detected (Not Detect) U Benzodiazepines Scrn Not Detected (Not Detect) Urine Cocaine Screen POSITIVE H (Not Detect) U Marijuana (THC) Screen POSITIVE H (Not Detect) Independent Interpretation I performed an independent interpretation of an: EKG Interpretation: Normal sinus rhythm, HR-99, no STEMI, no QT or QTC prolongation, MS/QRS is within normal limits. Discharge Plan Discharge Clinical Impression: Cyclical vomiting, Suicidal ideation Patient Disposition: Still a Patient Prescriptions: No Action metoclopramide HCl [Reglan] 10 mg tablet 10 mg PO Q6H PRN (Reason: nausea and vomiting) Qty: 20 0RF famotidine 20 mg tablet 20 mg PO DAILY Qty: 20 0RF quetiapine [Seroquel] 300 mg tablet 300 mg PO BEDTIME Qty: 5 0RF famotidine [Pepcid] 20 mg tablet 20 mg PO BID Qty: 20 0RF alum-mag hydroxide-simeth [Maalox Advanced] 200-200-20 mg/5 mL suspension 10 ml PO Q6H PRN (Reason: dyspepsia) Qty: 3000 0RF ondansetron HCl [Zofran] 4 mg tablet 4 mg PO Q6H PRN (Reason: nausea) Qty: 8 0RF prochlorperazine [Compro] 25 mg suppository 25 mg MS Q8H PRN (Reason: nausea and vomiting) Qty: 24 0RF
[2022-08-11] MEDS: QUEtiapine Fumarate 50 MG TABLET 150 MG PO ×2 (14:47→16:51)
--- NOTE | 2022-08-11 14:53 | ECG_ITS ---
Test Reason : MEDICATION Blood Pressure : / mmHG Vent. Rate : 099 BPM Atrial Rate : 099 BPM P-R Int : 186 ms QRS Dur : 080 ms QT Int : 362 ms P-R-T Axes : 053 028 032 degrees QTc Int : 464 ms Normal sinus rhythm Possible Left atrial enlargement Borderline ECG When compared with ECG of 07-OCT-2021 05:11, No significant change was found Referred By: Enid Muñiz Electronically Signed By:AASHISH GROVER
--- NOTE | 2022-08-11 14:56 | PC.NURSE ---
pt was just given seroquel 150mg and had an episode of n/v, md aware.
--- NOTE | 2022-08-11 14:56 | PC.NURSE ---
Haldol and Ativan ordered - not medication restraints, Haldol ordered for pts nausea/vomiting, ativan ordered for pt anxiety as she is unable to tolerate PO
[2022-08-11] MEDS: LORazepam 2 MG/ML VIAL 1 MG IM (15:47)
[2022-08-11] MEDS: LORazepam 0.5 MG TABLET PO ×2 (16:51→23:43)
[2022-08-11] MEDS: Prochlorperazine Edisylate 10 MG/2 ML VIAL IM (16:51)
[2022-08-11 17:08] VITALS: BP 141/79; PULSE 55; RESP 16; TEMP 36.4; O2SAT 98
--- NOTE | 2022-08-11 17:37 | MHC.EDTECH ---
pt sleeping s/p IM medication. will attempt labwork when pt awake
--- NOTE | 2022-08-11 22:26 | PHA.MEDREC ---
Pharmacy Consult ? Medication Reconciliation Pharmacy has completed the medication reconciliation. Spoke with patient in the ED. Patient states she should be on fluoxetine but has not taken in a month.
[2022-08-11 22:38] LABS: Basophils Absolute Auto 0.1 X10*3/uL (0.0-0.2); Basophils Percent Auto 0.3 % (0-2); Eosinophils Percent Auto 0.1 % (0-4); Hematocrit 38.3 % (37.0-47.0); Hemoglobin 12.7 g/dl (12.0-16.0); Imm Gran Abs Auto 0.17 X10*3/uL (0.00-0.03); Imm Gran Pct Auto 1.2 % (0.0-0.4); Lymphocytes Absolute Auto 3.6 X10*3/uL (1.2-4.9); Lymphocytes Percent Auto 24.5 % (20-40); MANUAL DIFF FLAG SCAN; Mean Corpuscular HGB Conc 33.2 g/dl (31.0-35.0); Mean Corpuscular Hemoglobin 25.6 pg (27.0-33.0); Mean Corpuscular Volume 77.1 fL (80.0-98.0); Mean Platelet Volume 10.4 fL (9.4-12.3); Monocytes Absolute Auto 0.7 X10*3/uL (0.1-1.2); Monocytes Percent Auto 4.8 % (2-11); Neutrophils Absolute Auto 10.2 x10*3/uL (2.0-8.3); Neutrophils Percent Auto 69.1 % (45-73); PLT CLUMP 1; Red Blood Count 4.97 X10*6/uL (4.20-5.50); Red Cell Distribution Width 15.8 % (11.0-16.0); SCAN SMEAR FLAG 1
[2022-08-11 22:42] LABS: White Blood Count 14.8 X10*3/uL (4.8-10.8)
[2022-08-11 22:45] LABS: SLIDE REVIEW VERIFIED
[2022-08-11 22:54] LABS: Anion Gap 19 (12-20)
[2022-08-11 22:59] LABS: Alanine Aminotransferase 15 U/L (0-31); Albumin Level 4.2 g/dL (3.5-5.0); Alkaline Phosphatase 73 U/L (39-117); Aspartate Amino Transferase 12 U/L (5-31); Bilirubin Direct 0.2 mg/dL (0.0-0.5); Bilirubin Total 0.8 mg/dL (0.0-1.0); Blood Urea Nitrogen 9 mg/dL (9-16); Calcium 9.7 mg/dL (8.4-10.2); Carbon Dioxide 21 mmol/L (22-29); Chloride 107 mmol/L (96-108); Creatinine Clr Calc Pharmacy 130.3; Estimated Glomerular Filt Rate > 60; Glucose Random 131 mg/dL (60-115); Magnesium 1.9 mg/dL (1.6-2.6); Potassium 4.6 mmol/L (3.3-5.1); Sodium 142 mmol/L (135-145); Total Protein 7.1 g/dL (6.5-8.0)
[2022-08-11 23:07] LABS: Ethanol < 10 mg/dL
[2022-08-11 23:23] VITALS: BP 107/87; PULSE 100; RESP 16; TEMP 36.6; O2SAT 98
[2022-08-11 23:28] LABS: Glucose, Whole Blood 148 mg/dL (60-115)
--- NOTE | 2022-08-11 23:28 | MHC.EDTECH ---
THIS PCT ASSUMED CARE OF PT AT 2300 ,VITALS SIGN TAKEN ,BLOOD SUGAR CHECK ,PT WAS ESCORTED TO BTHROOM AND BACK TO BED ,PT HAD 2 ICE CREAM FOR SNACK .PATIENT OBSERVER AT BEDSIDE .
[2022-08-11] MEDS: QUEtiapine Fumarate 300 MG TABLET 600 MG PO (23:43)
[2022-08-12] MEDS: LORazepam 1 MG TABLET 2 MG PO (00:39)
[2022-08-12] MEDS: OLANZapine 5 MG TABLET PO (00:40)
[2022-08-12 00:47] LABS: COVID-19 Test Negative (Negative); IDNOW Serial# 08D9AD1C
[2022-08-12 06:00] VITALS: BP 154/103; PULSE 106; RESP 16; TEMP 36.9; O2SAT 98
--- NOTE | 2022-08-12 06:10 | PC.NURSE ---
Patient was transferred from main Ed at 0000, vomited x 1, showered, restlessness, Ativan 2 mg PO and Olanzapine 5 mg po administered at 0039 with + effect, slept through the night, VSS, care consult ordered/pending evaluation, behavior non concerning but unpredictable due to labile affect, will continue to monitor.
[2022-08-12] MEDS: Omeprazole 20 MG CAPSULE.DR PO (06:15)
[2022-08-12] MEDS: Ondansetron ODT 4 MG TAB.RAPDIS TRANSLINGU ×2 (07:07→08:07)
--- NOTE | 2022-08-12 07:15 | PC.NURSE ---
Pt n/v, medicated as ordered, not effective at this time.
[2022-08-12] MEDS: metFORMIN HCl ER 500 MG TAB.ER.24H PO (08:06)
[2022-08-12] MEDS: QUEtiapine Fumarate 300 MG TABLET PO (08:06)
[2022-08-12] MEDS: valACYclovir HCL 500 MG TABLET PO (08:07)
[2022-08-12] MEDS: FLUoxetine HCl 20 MG CAPSULE PO (08:07)
--- NOTE | 2022-08-12 12:36 | PC.NURSE ---
Pt requesting to be discharged home. Cornelioies SI, HI, AVH. Was given a sandwich and a Soda.
[2022-08-12 15:52] VITALS: BP 146/102; PULSE 113; RESP 16; TEMP 36.9; O2SAT 98
--- NOTE | 2022-08-12 17:44 | PC.ADMIT ---
Pt is a 32 year old female who presents to [place] [facility] [place] at approx 16:30 on a cv status. Pt is covid - Tox screen + for cocaine and THC. Per chart review, pt was assessd by CARE Team after arriving to the ED via ambulence with a complaint of anxiety, vomiting, and SI with a plan to lead into traffic after breaking up with her boyfriend. Pt has a hx of SI and her most recent attempt was May of this year. Pt answered yes and no to questions during admit. Pt was able to order dinner but was unhappy that her medications were not at the dosage she wanted. Pt has a past hx of trauma. Provider was called and ordered for admission orders. Start treatment plan and monitor for safety.
[2022-08-12] MEDS: LORazepam 0.5 MG TABLET PO (18:15)
[2022-08-12] MEDS: QUEtiapine Fumarate 300 MG TABLET 600 MG PO (18:15)
[2022-08-12 18:18] VITALS: BP 164/98; PULSE 101
--- NOTE | 2022-08-13 08:10 | PC.NURSE ---
Requested a 3-day notice on 08/13/2022, refused to sign but continued to verbally request. 3-day notice is up on August 19. (Thursday is a holiday)
[2022-08-13] MEDS: hydrOXYzine HCL 25 MG TABLET PO ×3 (08:47→19:41)
[2022-08-13] MEDS: QUEtiapine Fumarate 50 MG TABLET 150 MG PO (08:47)
[2022-08-13] MEDS: LORazepam 0.5 MG TABLET PO ×2 (08:47→19:41)
[2022-08-13] MEDS: FLUoxetine HCl 20 MG CAPSULE PO (08:48)
[2022-08-13] MEDS: metFORMIN HCl ER 500 MG TAB.ER.24H PO (08:48)
[2022-08-13] MEDS: valACYclovir HCL 500 MG TABLET PO (08:48)
[2022-08-13 08:49] VITALS: BP 119/67; PULSE 116; RESP 18; TEMP 36.4; O2SAT 96
--- NOTE | 2022-08-13 12:18 | PC.NURSE ---
Pt given [facility] phone number and offered assistance to dial.
[2022-08-13] MEDS: OLANZapine 5 MG TABLET PO (12:39)
[2022-08-13] MEDS: QUEtiapine Fumarate 100 MG TABLET PO (14:24)
[2022-08-13] MEDS: chlorproMAZINE HCl 25 MG TABLET 50 MG PO (16:32)
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
[2022-08-13 17:12] LABS: Urine Pregnancy NEGATIVE (NEGATIVE)
[2022-08-13 17:13] LABS: UPreg QC Valid YES
[2022-08-13] MEDS: Prochlorperazine Edisylate 10 MG/2 ML VIAL IM (17:17)
[2022-08-13] MEDS: Ondansetron ODT 4 MG TAB.RAPDIS TRANSLINGU (18:57)
[2022-08-13] MEDS: QUEtiapine Fumarate 300 MG TABLET 600 MG PO (19:41)
[2022-08-14] MEDS: Ondansetron ODT 4 MG TAB.RAPDIS TRANSLINGU ×4 (01:12→16:24)
[2022-08-14] MEDS: QUEtiapine Fumarate 100 MG TABLET PO ×2 (08:57→14:37)
[2022-08-14] MEDS: metFORMIN HCl ER 500 MG TAB.ER.24H PO (08:57)
[2022-08-14] MEDS: FLUoxetine HCl 20 MG CAPSULE PO (08:57)
[2022-08-14] MEDS: valACYclovir HCL 500 MG TABLET PO (08:57)
[2022-08-14 08:59] VITALS: BP 103/57; PULSE 88; RESP 16; TEMP 36.4; O2SAT 97
[2022-08-14] MEDS: LORazepam 0.5 MG TABLET PO ×2 (10:27→14:38)
[2022-08-14 10:32] VITALS: BMI 43.4
--- NOTE | 2022-08-14 10:39 | PC.NURSE ---
Pt signed retraction of 3-day notice.
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
[2022-08-14] MEDS: hydrOXYzine HCL 25 MG TABLET PO ×2 (14:48→16:24)
--- NOTE | 2022-08-14 14:55 | PC.NURSE ---
Per pt's request, pt met with director of behavioral health to advocate for her own discharge.
[2022-08-14 18:00] VITALS: BP 142/89; PULSE 101; RESP 16; TEMP 36.4; O2SAT 97
[2022-08-14] MEDS: traZODone HCL 50 MG TABLET PO (19:27)
[2022-08-14] MEDS: QUEtiapine Fumarate 300 MG TABLET 600 MG PO (19:28)
[2022-08-14] MEDS: Magnesium Hydrox/Alum Hydrox 30 ML ORAL.SUSP PO (19:28)
[2022-08-15] MEDS: metFORMIN HCl ER 500 MG TAB.ER.24H PO (07:46)
[2022-08-15] MEDS: QUEtiapine Fumarate 100 MG TABLET PO (07:46)
[2022-08-15] MEDS: Naloxone HCl Nasal TAKE HOME 4 MG SPRAY NOSTRILALT (07:46)
[2022-08-15] MEDS: FLUoxetine HCl 20 MG CAPSULE PO (07:46)
[2022-08-15] MEDS: valACYclovir HCL 500 MG TABLET PO (07:46)
[2022-08-15] MEDS: hydrOXYzine HCL 25 MG TABLET PO (08:16)
[2022-08-15] MEDS: LORazepam 0.5 MG TABLET PO (08:16)
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
== END 2022-08-15 08:40 | disposition home or self-care (01) | DRG 882 ==
LOC: HO.ED 08-12 07:02 → HO.PM5 08-12 16:26
PROVIDERS: Physician Assistant; Registered Nurse; Student in an Organized Health Care Education/Training Program; Admitting Provider Clinical Nurse Specialist Psychiatric/Mental Health, Adult; Emergency Provider Emergency Medicine Emergency Medical Services; Visit Provider Clinical Nurse Specialist Psychiatric/Mental Health, Adult
DX: F43.10 Post-traumatic stress disorder, unspecified (principal); R45.851 Suicidal ideations; F17.210 Nicotine dependence, cigarettes, uncomplicated; Z71.6 Tobacco abuse counseling; F14.10 Cocaine abuse, uncomplicated; R11.15 Cyclical vomiting syndrome unrelated to migraine; Z20.822 Contact with and (suspected) exposure to COVID-19; Z88.5 Allergy status to narcotic agent; Z88.6 Allergy status to analgesic agent; Z79.84 Long term (current) use of oral hypoglycemic drugs; Z79.899 Other long term (current) drug therapy
CPT/HCPCS: 36415; 80048; 80076; 80307; 81001; 81025; 82947; 83735; 85025; 87635; 93005; 99285; J1200; J2060; J2765; S9485

== ENCOUNTER 2023-06-02 12:29 | Emergency (ER) | payer OTHER, SELFPAY ==
[2023-06-02 12:41] VITALS: BP 174/90; PULSE 98; O2SAT 98
--- NOTE | 2023-06-02 12:41 | ED_ITS ---
HPI - General Adult General Chief complaint: Psychiatric Symptoms Stated complaint: N/V/X1 WEEK,SI STATEMENTS PER EMS Time Seen by Provider: 06/02/23 12:40 Source: patient and EMS Mode of arrival: EMS Limitations: no limitations History of Present Illness HPI narrative: Patient is a 32 year old assigned female at with a history of PTSD and cyclical vomiting presenting to the emergency department today with nausea, vomiting, and suicidal ideation. Patient states that she is having more nausea, vomiting, and she wants to kill herself. Patient states that she feels very restless and was seen at [facility] 2 days ago. Patient denies any dizziness, lightheadedness, abdominal pain, fever, chills, blurry vision, double vision, loss of vision, chest pain, difficulty breathing, shortness of breath, back pain, night sweats, pain with urination, increased urinary frequency, increased urinary urgency, blood in her urine or stool, syncope or a near syncopal episode, recent trauma or falls, bowel incontinence, bladder incontinence, bowel retention, bladder retention, or any other complaints at this time. Onset (ago): day(s) Relieving factors: none Exacerbating factors: none Associated symptoms: nausea/vomiting Treatments prior to arrival: none Related Data Home Medications Medication Instructions Recorded Confirmed lorazepam 0.5 mg tablet 0.5 mg PO DAILY PRN anxiety 08/11/22 06/02/23 metformin 500 mg tablet,extended 500 mg PO DAILY 08/11/22 06/02/23 release 24 hr omeprazole 20 mg capsule,delayed 20 mg PO DAILY@0630 PRN Heartburn 08/11/22 06/02/23 release valacyclovir 500 mg tablet 500 mg PO DAILY 08/11/22 06/02/23 Previous Rx's Medication Instructions Recorded ondansetron 4 mg disintegrating 4 mg translingual BID PRN Nausea 08/14/22 tablet And Vomiting 7 days #14 tabs quetiapine 300 mg tablet,extended 600 mg (2 x 300 mg) PO BEDTIME 30 08/15/22 release 24 hr days #60 tabs trazodone 50 mg tablet 50 mg PO BEDTIME PRN insomnia 7 08/15/22 days #7 tabs Allergies Allergy/AdvReac Type Severity Reaction Status Date / Time codeine [CODEINE] Allergy Unknown UNKNOWN Verified 10/07/21 03:09 acetaminophen [From TYLENOL] AdvReac Mild HEADACHES Verified 10/07/21 03:09 From HALDOL Allergy Unknown Anaphylaxis Uncoded 10/07/21 03:09 Review of Systems 2 Constitutional: Constitutional: Reports no additional constitutional complaints, Denies chills, Denies fever(s) and Denies night sweats Eyes: Eyes: Reports no additional eye complaints, Denies blurry vision, Denies change in vision, Denies diplopia, Denies eye discharge, Denies loss of vision and Denies eye pain ENT: Denies dizziness Cardiovascular: Cardiovascular: Reports no additional cardiovascular complaints, Denies chest pain, Denies lightheadedness, Denies Loss of Consciousness and Denies dyspnea Respiratory: Respiratory: Reports no additional respiratory complaints and Denies dyspnea Gastrointestinal: Gastrointestinal: Reports no additional gastrointestinal complaints, Denies abdominal pain, Denies melena, Denies hematochezia, Denies change in bowel habits, Denies change in stool character, Reports nausea and Reports vomiting Genitourinary: Genitourinary: Denies hematuria, Denies urinary frequency, Denies dysuria, Denies urinary incontinence, Denies urinary hesitancy and Denies urinary urgency Musculoskeletal: Musculoskeletal: Reports no additional musculoskeletal complaints, Denies numbness and Denies tingling Neurologic: Denies dizziness, Denies loss of vision, Denies numbness and Denies tingling Psychiatric: Psychiatric: Denies homicidal ideation and Reports suicidal ideation Endocrine: Endocrine: Reports no additional endocrine complaints Hematologic/Lymphatic: Hematologic/Lymphatic: Reports no additional hematologic/lymphatic complaints Allergic/Immunologic: Allergic/Immunologic: Reports no additional allergic/immunologic complaints [facility] Past Medical History Attestation statement: The following information was validated with the patient. Source: old records reviewed and nursing notes reviewed Medical History Suicidal ideation Anxiety Depression PTSD (post-traumatic stress disorder) Bipolar 1 disorder Surgical History S/P cholecystectomy Social History Social History Household Members: None Housing: Unknown / Unable to assess Alcohol intake: unknown Patient Tobacco Use Status: Current someday Tobacco user Substance Use Type: Crack/Cocaine and Marijuana service: No Sexual orientation: Straight/Heterosexual Physical Exam ED Vital Signs: Vital Signs - 24 hr 06/02/23 12:43 Temperature 98 F Pulse Rate 87 Respiratory Rate 28 H Blood Pressure 177/94 H Pulse Oximetry 97 Oxygen Delivery Method Room Air BMI result Body Mass Index 42.3 Const General: cooperative, no acute distress, alert and awake Nutritional Appearance: well nourished Orientation/consciousness: patient oriented x3 Limitations: no limitations HENMT Head: Yes normal to inspection and Yes atraumatic Ears: hearing grossly normal bilaterally and external ears normal General nose exam: Normal external nose present, no nasal discharge noted and no epistaxis Face and sinus: Yes normal facial exam, No abrasion and No laceration Mouth: Normal oral and palatal mucosa present, no drooling and no muffled voice Eyes General: appearance normal, both eyes and all related structures Periorbital: periorbital findings normal Eyelids: Yes eyelids normal Conjunctivae: conjunctivae normal Pupils: Equal, round and reactive pupils present EOM: EOMs intact bilaterally Neck Neck: Yes normal visual inspection, Yes full ROM and Yes no lymphadenopathy Chest Chest palpation & inspection: normal inspection of the chest Resp Effort & Inspection: normal respiratory effort and able to speak in complete sentences GI Inspection: Yes normal to inspection Palpation (GI): Soft to palpation, not firm, nontender and no guarding Neuro General: patient oriented x3 and moves all extremities Cranial nerves: Yes Equal, round and reactive pupils present Cognition (Neuro): normal cognition Motor exam (neuro): 5/5 motor strength present throughout Sensory Exam: Normal double simultaneous stimulation for sensation Coordination: [id number] test normal Extrem General: Yes normal to inspection, Yes full ROM and Yes capillary refill normal Psych Appearance: grossly normal Affect: Labile affect present Attitude: Belligerent attititude/behavior present Thought process: Circumstantial thought process present Thought content: Suicidality present Medications Administered Discontinued Medications Generic Name Dose Route Start Last Admin Trade Name Freq PRN Reason Stop Dose Admin Sodium Chloride 1,000 mls @ 999 mls/hr 06/02/23 12:45 06/02/23 13:02 Ns IV 06/02/23 13:45 999 mls/hr .Q1H1M JUNIOR Administration Lorazepam 2 mg 06/02/23 13:16 06/02/23 13:30 Lorazepam 2 Mg/Ml Vial IVPUSH 06/02/23 13:17 2 mg ONCE ONE Administration Olanzapine 5 mg 06/02/23 13:20 03/12/24 13:30 Olanzapine 10 Mg Vial IM 06/02/23 13:21 5 mg STAT STA Administration Prochlorperazine Edisylate 10 mg 06/02/23 12:43 06/02/23 12:58 Prochlorperazine Edisylate 10 Mg/2 Ml Vial IVPUSH 06/02/23 12:44 10 mg ONCE ONE Administration Prochlorperazine Edisylate 10 mg 06/02/23 15:37 06/02/23 15:55 Prochlorperazine Edisylate 10 Mg/2 Ml Vial IVPUSH 06/02/23 15:38 10 mg ONCE ONE Administration Medical Decision Making Medical Decision Making [facility] Narrative: Patient is a 32 year old assigned female at with a history of PTSD and cyclical vomiting presenting to the emergency department today with nausea, vomiting, and suicidal ideation. Patient's physical exam was as noted in the physical exam portion of this note. Patient was redirectable but some what verbally aggressive. Patient's blood work was unremarkable. Patient's urine is pending. I explained my physical exam findings as well as all test results to the patient. I answered all questions asked by the patient . Patient received multiple doses of IV anti-emetics as well as fluids which she stated helped her nausea and vomiting. Patient was given IM Zyprexa by request, to help with her restlessness. Patient's disposition is currently pending CARE team evaluation. Differential Diagnosis Differential Diagnoses: The differential diagnosis associated with the presentation includes Nausea Vomiting Cyclic vomiting PTSD Suicidal ideation Bipolar disorder Admission/Observation Consideration of admission/observation: Escalation of care including admission/observation considered Patient's disposition will be determined after CARE evaluation. Lab Data [facility] Lab Attestation statement: I reviewed the patient's lab results. My interpretation of these results are in the MDM Rationale portion of this note. 06/02/23 13:04 06/02/23 13:03 Labs: Lab Results 06/02/23 06/02/23 06/02/23 Range/Units 12:55 13:03 13:04 WBC 9.6 (4.8-10.8) X10*3/uL RBC 4.54 (4.20-5.50) X10*6/uL Hgb 11.8 L (12.0-16.0) g/dl Hct 36.2 L (37.0-47.0) % MCV 79.7 L (80.0-98.0) fL MCH 26.0 L (27.0-33.0) pg MCHC 32.6 (31.0-35.0) g/dl RDW 14.9 (11.0-16.0) % Plt Count 300 (160-400) X10*3/uL MPV 8.5 L (9.4-12.3) fL Immature Gran % (Auto) 0.9 H (0.0-0.4) % Neut % (Auto) 64.5 (45-73) % Lymph % (Auto) 29.1 (20-40) % Stanly % (Auto) 4.2 (2-11) % Eos % (Auto) 0.9 (0-4) % Baso % (Auto) 0.4 (0-2) % Lymph # (Auto) 2.8 (1.2-4.9) X10*3/uL Stanly # (Auto) 0.4 (0.1-1.2) X10*3/uL Eos # (Auto) 0.1 (0.0-0.4) X10*3/uL Baso # (Auto) 0.0 (0.0-0.2) X10*3/uL Abs Immat Gran (auto) 0.09 H (0.00-0.03) X10*3/uL Absolute Neuts (auto) 6.2 (2.0-8.3) x10*3/uL Absolute Nucleated RBC 0.000 (0.0-0.012) X10*3/uL Nucleated RBC % (auto) 0.0 (0.0-0.2) /100WBC Sodium 139 (135-145) mmol/L Potassium 3.9 (3.3-5.1) mmol/L Chloride 106 (96-108) mmol/L Carbon Dioxide 28 (22-29) mmol/L Anion Gap 9 L (12-20) BUN 9 (9-16) mg/dL Creatinine 0.69 (0.5-1.4) mg/dL Estim Creat Clear Calc 161.8 Estimated GFR > 60 Random Glucose 131 H (60-115) mg/dL Calcium 9.3 (8.4-10.2) mg/dL Magnesium 2.0 (1.6-2.6) mg/dL Total Bilirubin 0.4 (0.0-1.0) mg/dL AST 18 (5-31) U/L ALT 17 (0-31) U/L Alkaline Phosphatase 75 (39-117) U/L Total Protein 7.1 (6.5-8.0) g/dL Albumin 3.9 (3.5-5.0) g/dL Beta HCG, Quant < 2 mIU/mL Influenza Type A (PCR) NEGATIVE (Negative) Influenza Type B (PCR) NEGATIVE (Negative) RSV RNA Qual (PCR) NEGATIVE (Negative) SARS-CoV-2 RNA (RT-PCR) NEGATIVE (Negative) Independent Historian Clinical information obtained from an independent historian. History obtained from or confirmed by: EMS (EMS provided additional history and confirmed the history provided by the patient.) Critical Care Time Critical Care Time Critical Care Time: Yes Total Critical Care Time: 55 Attestation: I spent 55 minutes of Critical Care Time with this patient. This does not include time spent on separately reported billable procedures. Discharge Plan Discharge Clinical Impression: Nausea & vomiting, Feeling suicidal Patient Disposition: Still a Patient Prescriptions: No Action valacyclovir 500 mg tablet 500 mg PO DAILY lorazepam 0.5 mg tablet 0.5 mg PO DAILY PRN (Reason: anxiety) omeprazole 20 mg capsule,delayed release(DR/EC) 20 mg PO DAILY@0630 PRN (Reason: Heartburn) metformin 500 mg tablet extended release 24 hr 500 mg PO DAILY ondansetron 4 mg Tablet,Disintegrating 4 mg translingual BID PRN (Reason: Nausea And Vomiting) 7 Days Qty: 14 0RF trazodone 50 mg tablet 50 mg PO BEDTIME PRN (Reason: insomnia) 7 Days Qty: 7 0RF quetiapine 300 mg tablet extended release 24 hr 600 mg PO BEDTIME 30 Days Qty: 60 0RF
[2023-06-02 12:43] VITALS: BP 177/94; PULSE 87; RESP 28; TEMP 36.6; O2SAT 97; BMI 42.3
--- NOTE | 2023-06-02 12:54 | MHC.EDTECH ---
BELONGINGD TO LOCKER 11 PER [employer] [facility] @ THIS TIME
[2023-06-02] MEDS: Prochlorperazine Edisylate 10 MG/2 ML VIAL IVPUSH ×2 (12:58→15:55)
[2023-06-02] MEDS: 0.9 % Sodium Chloride 1,000 ML 999 ML IV (13:02)
[2023-06-02 13:06] LABS: MANUAL DIFF FLAG NO
[2023-06-02 13:09] LABS: Basophils Percent Auto 0.4 % (0-2); Eosinophils Absolute Auto 0.1 X10*3/uL (0.0-0.4); Eosinophils Percent Auto 0.9 % (0-4); Hematocrit 36.2 % (37.0-47.0); Hemoglobin 11.8 g/dl (12.0-16.0); Imm Gran Abs Auto 0.09 X10*3/uL (0.00-0.03); Imm Gran Pct Auto 0.9 % (0.0-0.4); Lymphocytes Absolute Auto 2.8 X10*3/uL (1.2-4.9); Lymphocytes Percent Auto 29.1 % (20-40); Mean Corpuscular HGB Conc 32.6 g/dl (31.0-35.0); Mean Corpuscular Volume 79.7 fL (80.0-98.0); Mean Platelet Volume 8.5 fL (9.4-12.3); Monocytes Absolute Auto 0.4 X10*3/uL (0.1-1.2); Monocytes Percent Auto 4.2 % (2-11); Neutrophils Absolute Auto 6.2 x10*3/uL (2.0-8.3); Neutrophils Percent Auto 64.5 % (45-73); Platelet Count 300 X10*3/uL (160-400); Red Blood Count 4.54 X10*6/uL (4.20-5.50); Red Cell Distribution Width 14.9 % (11.0-16.0); White Blood Count 9.6 X10*3/uL (4.8-10.8)
[2023-06-02] MEDS: LORazepam 2 MG/ML VIAL IVPUSH (13:30)
[2023-06-02] MEDS: OLANZapine 10 MG VIAL 5 MG IM (13:30)
[2023-06-02 13:35] LABS: Alanine Aminotransferase 17 U/L (0-31); Albumin Level 3.9 g/dL (3.5-5.0); Alkaline Phosphatase 75 U/L (39-117); Anion Gap 9 (12-20); Aspartate Amino Transferase 18 U/L (5-31); Bilirubin Total 0.4 mg/dL (0.0-1.0); Blood Urea Nitrogen 9 mg/dL (9-16); Calcium 9.3 mg/dL (8.4-10.2); Carbon Dioxide 28 mmol/L (22-29); Chloride 106 mmol/L (96-108); Creatinine Clr Calc Pharmacy 161.8; Estimated Glomerular Filt Rate > 60; Glucose Random 131 mg/dL (60-115); Potassium 3.9 mmol/L (3.3-5.1); Sodium 139 mmol/L (135-145); Total Protein 7.1 g/dL (6.5-8.0)
[2023-06-02 13:40] LABS: Influenza A PCR NEGATIVE (Negative); Influenza B PCR NEGATIVE (Negative); Resp Syncy Virus RNA Qual PCR NEGATIVE (Negative); SARS COV2 PCR INHOUSE NEGATIVE (Negative)
--- NOTE | 2023-06-02 14:32 | MHC.CARE ---
Patient evaluated by the CARE Team, she does not need an inpatient psychiatric admission at this time and is clear to discharge home. [place] Co-response will arrange transportation. ED provider, CAROLINA Gold consulted and in agreement.
[2023-06-02 15:09] LABS: HCG Quantitative < 2 mIU/mL
--- NOTE | 2023-06-02 16:27 | PHA.MEDREC ---
Pharmacy Consult ? Medication Reconciliation Pharmacy has reviewed the medication reconciliation completed by Prerna. Patient on Quetiapine IR instead of XR. Lanny Llanes, Juan AD
[2023-06-02 16:30] LABS: Appearance Urine Clear; Color Urine Yellow; Glucose Urine UA Negative (Negative); Leukocyte Esterase Urine Negative (Negative); Nitrite Urine Negative (Negative); PH >= 9.0 (5.0-9.0); Specific Gravity - Urine 1.015 (1.005-1.025); UMIC TRIGGER UACC YES; Urine Blood Large (3+) (Negative); Urine Ketones Negative (Negative); Urine Protein Trace mg/dL (Neg-Trace)
[2023-06-02 16:34] LABS: Bacteria Urine None Seen (None Seen); Hyaline Casts Urine 0-2 /LPF (0-2); RBC Urine >20 /HPF (0-2); WBC Urine 0-5 /HPF (0-5)
[2023-06-02 16:42] LABS: Amphetamine Screen Urine Not Detected (Not Detect); Barbiturates, Urine Not Detected (Not Detect); Benzodiazepines Screen Urine Not Detected (Not Detect); Cannabinoid Screen Urine POSITIVE (Not Detect); Cocaine Screen Urine POSITIVE (Not Detect); Fentanyl, urine Not Detected (Not Detect); Opiate Screen Urine Not Detected (Not Detect); Phencyclidine Screen Urine Not Detected (Not Detect)
[2023-06-02] MEDS: Ondansetron ODT 4 MG TAB.RAPDIS TRANSLINGU (19:16)
[2023-06-02] MEDS: QUEtiapine Fumarate 300 MG TABLET 600 MG PO (19:17)
[2023-06-02] MEDS: LORazepam 0.5 MG TABLET PO (19:18)
--- NOTE | 2023-06-02 19:45 | PC.NURSE ---
Assumed care of this Pt. Pt calm and cooperative, A&Ox3, requesting meds, states takes them at this time , reports nausea. Pt medicated per MAY. Pt ambulated independently with steady gait. Plan of care ongoing.
[2023-06-02] MEDS: traZODone HCL 50 MG TABLET PO (19:55)
[2023-06-02 20:43] LABS: Ethanol < 10 mg/dL
[2023-06-02 22:00] VITALS: BP 156/91; PULSE 107; RESP 16; O2SAT 98
--- NOTE | 2023-06-03 01:26 | PC.NURSE ---
Pt ambulated to BR independently with steady gait and back to room.
[2023-06-03] MEDS: LORazepam 0.5 MG TABLET PO (07:06)
[2023-06-03] MEDS: Ondansetron ODT 4 MG TAB.RAPDIS TRANSLINGU (07:07)
--- NOTE | 2023-06-03 07:09 | PC.NURSE ---
assumed care of pt at 0700. pt awake and alert, came out of room to ask this rn for prn ativan and zofran. pt medicated per may. t/w asked pt how she slept, pt sts Mary been sleeping for the past 2 days . pt back to room. plan of care ongoing.
--- NOTE | 2023-06-03 07:45 | PC.NURSE ---
pt came out of room stating I'm ready to leave, let me out of here . Gay, upper caser stated she was going to speak with the provider to get the pt out of here. pt became impatient and started getting agitated stating I'm not sectioned, you guys are keeping me here against my will. what am I waiting for? I want to leave AMA, let me go . t/w and real Nj continued to try and de-escalate pt with no progress. pt kept bringing up that she was not on a section 12 and what ya'll are doing here is illegal keeping me here against my will . t/w proceeded to tell pt she was in fact on a section 12 to which the pt threw a fit, became extremely agitated, and started yelling stating that's a lie, I came here voluntarily, give me a copy of that, I'm going to prabhu you guys . pt was given a copy of section 12 and security was called in to help de-escalate pt, who became even more agitated and started asking for someone to complain to about situation. pt started yelling in POD hallway, disturbing other pts and was asked multiple times by security to talk in her room to which the pt refused. Dr. Encinas came in to speak with pt, discharge paperwork and worknote to be given to pt. pt now calm sitting in hallway.
--- NOTE | 2023-06-03 08:02 | MHC.CARE ---
Patient's phone number is [phone]
[2023-06-03] MEDS: valACYclovir HCL 500 MG TABLET PO (08:08)
[2023-06-03] MEDS: metFORMIN HCl ER 500 MG TAB.ER.24H PO (08:08)
--- NOTE | 2023-06-03 09:21 | MHC.CARE ---
RAD Team completed an [facility] [place] for this pt. RAD will follow up to confirm receipt and contact was made.
--- NOTE | 2023-06-04 13:13 | MHC.CARE ---
Per Marilee at [facility] she has been unable to reach [facility] due to no response at all available phone #'s. Care Team notified.
== END 2023-06-03 08:12 | disposition home or self-care (01) ==
PROVIDERS: Physician Assistant Medical; Emergency Provider Emergency Medicine Emergency Medical Services
DX: R45.851 Suicidal ideations (principal); R11.15 Cyclical vomiting syndrome unrelated to migraine; F43.10 Post-traumatic stress disorder, unspecified; R11.2 Nausea with vomiting, unspecified; Z11.52 Encounter for screening for COVID-19; Z20.822 Contact with and (suspected) exposure to COVID-19; Z79.899 Other long term (current) drug therapy
CPT/HCPCS: 0241U; 80053; 80307; 81001; 83735; 84702; 85025; 96361; 96372; 96374; 96375; 96376; 99285; J0737; J2060; J2359; S9485

== ENCOUNTER 2023-12-27 04:35 | Emergency (ER) | payer OTHER, SELFPAY ==
[2023-12-27 04:40] VITALS: BP 166/98; PULSE 111; O2SAT 97
[2023-12-27 04:46] VITALS: BP 151/102; PULSE 105; RESP 18; TEMP 36.9; O2SAT 99; BMI 49.9
--- OUTSIDE RECORDS SUMMARY | 2023-12-27 05:19 | XMS_ITS | Continuity of Care Document ---
Author Organization [facility] Address [address] [place] [id number]- Care Team Providers Care Electronics Computer Mechanic Name Role Phone Geeta MITCHELL, Yaneth Primary Care Physician Encounter [facility] Date(s): 09/28/23 - 10/28/[address] [address]- Allergies, Adverse Reactions, Alerts Substance Reaction Severity Status codeine 1 Active Haldol Active 1reaction was Headache per RN 02/2016 admission Immunizations Given and Recorded Vaccine Date Status Refusal Reason SARS-CoV-2(COVID-19)mRNA-LNP vac([id number]) 01/31/23 Recorded [id number] bivalent booster vax 01/28/22 Recorded SARS-CoV-2 (COVID-19) [...] conjugate (HbOC) vaccine 92 Re corded Medications cholestyramine 4 g/5.5 g oral powder for [...] II opio... Start Date: 06/02/22 Status: Ordered clindamycin 1% topical gel 1 application, Topically, 2 times a day, # 30 Gm, 3 Refills, Maintenance, 02/27/23 15:17:00 EST, Gel, [id number], Partial fill upon patient request if the prescription is for a schedule II opioid drug., 1 application Topically 2 times a day, 1... Start Date: 02/27/23 Status: Ordered clonazePAM 0.5 mg oral tablet TAKE 1 TABLET BY MOUTH TWICE A DAY NEEDED FOR ANXIETY Start Date: 06/24/23 Status: Ordered fluconazole 150 mg oral tablet See Instructions, 1 tablet By mouth today, repeat in 72 hrs if sx persist, # 2 tablet, 0 Refills, Maintenance, 01/30/23 17:30:00 EST, Tablet, [id number], Partial fill upon patient request if the prescription is for a schedule II opioid drug.,... Start Date: 01/30/23 Status: Ordered hydrOXYzine hydrochloride 25 mg oral tablet 1 tablet = 25 mg, TAKE 1 TABLET BY MOUTH THREE TIMES A DAY NEEDED FOR ANXIETY Start Date: 06/24/23 Status: Ordered ibuprofen 600 mg oral tablet 600 mg, 1, tablet, By Mouth, Every 6 hours, PRN, not to exceed 3200 mg/day with food or milk, # 20 tablet, Refills 0, Tot. Refills 0, Maintenance, Pain , Moderate, 01/28/23 12:32:00 EST, Route to Pharmacy Electronically, [facility]/pharmacy #[id number], Partial f... Start Date: 01/28/23 Status: Ordered lidocaine 4% topical film 1 patch, Topically, 2 times a day, PRN Pain , Moderate, do not leave patch on for more than 8 hoursat a time, # 6 patch, 0 Refills, Maintenance, 01/28/23 12:32:00 EST, Film, [facility]/pharmacy #[id number], Partial fill upon patient request if the prescription is... Start Date: 01/28/23 Status: Ordered medroxyPROGESTERone 10 mg oral tablet 1, tablet, By Mouth, Daily, # 10 tablet, Refills 0, Maintenance, 05/08/22 8:02:00 EST, Route to Pharmacy Electronically, [id number], 172.5, cm, 04/24/22 16:36:00 EST, Height Start Date: 05/08/22 Stop Date: 05/18/22 Status: Ordered MetFORMIN (Eqv-Glucophage XR) 500 mg oral tablet, extended release 1 tablet, By Mouth, Daily, # 90 tablet, 0 Refills, Maintenance, 09/28/23 7:47:00 EDT, [id number], 170, cm, 06/24/23 9:05:00 EDT, Height, 114, kg, 06/12/23 17:38:00 EDT, Dry Weight Start Date: 09/28/23 Status: Ordered omeprazole 20 mg oral enteric coated capsule 1 capsule, By Mouth, Daily, # 90 capsule, 1 Refills, Maintenance, 09/07/23 8:00:00 EDT, [id number], 170, cm, 06/24/23 9:05:00 EDT, Height, 114, kg, 06/12/23 17:38:00 EDT, Dry Weight Start Date: 09/07/23 Status: Ordered ondansetron 4 mg oral tablet 1 tablet = 4 mg, By Mouth, Every 8 hours, # 12 tablet, 0 Refills, Maintenance, 06/11/23 7:47:00 EDT, Tablet, [facility]/pharmacy #[id number], Partial fill upon patient request if the prescription is for a schedule II opioid drug., 170, cm, 05/29/23 0:46:00 EST, He... Start Date: 06/11/23 Status: Ordered prochlorperazine 10 mg oral tablet 1 tablet = 10 mg, By Mouth, 3 times a day, as needed emesis, # 30 tablet, 0 Refills, Maintenance, 06/24/23 9:04:00 EDT, Tablet, [facility]/pharmacy #[id number], Partial fill upon patient request if the prescription is for a schedule II opioid drug., 170, cm, 06/23... Start Date: 06/24/23 Stop Date: 07/04/23 Status: Ordered Seroquel 400 mg, By Mouth, Daily, Refills 0, Maintenance, 02/25/16 9:01:26 Start Date: 02/25/16 Status: Ordered SEROquel 200 mg oral tablet 200 mg, 1, tablet, By Mouth, 2 times a day, take morning and afternoon, # 60 tablet, Refills 0, Maintenance, 02/25/16 13:57:50 Start Date: 02/25/16 Status: Ordered traZODone 50 mg oral tablet 50 mg, 1, tablet, By Mouth, Daily at bedtime, # 30 tablet, Refills 0, Maintenance, 06/24/23 8:56:00EDT, Partial fill upon patient request if the prescription is for a schedule II opioid drug. Start Date: 06/24/23 Status: Ordered valACYclovir 500 mg oral tablet 1, tablet, By Mouth, Daily, # 30 tablet, Refills 0, Maintenance, 07/28/23 7:49:00 EDT, Route to Pharmacy Electronically, [id number], 170, cm, 06/24/23 9:05:00 EDT, Height, 114, kg, 06/12/23 17:38:00 EDT, Dry Weight Start Date: 07/28/23 Status: Ordered Vitamin D3 50,000 intl units [...] Care team information Care Team Personnel Name: Geeta MITCHELL, Yaneth Position: S Physician - Primary Care Member Role: PCP Address: Address: [address] [place] [address]- Care Team Related Persons Name: SHERI CONTRERAS Address: home [address] [place] [address] Name: LUCY LANDRUM Address: home [address] [place] [address] Name: FREDDY WEAVER
--- OUTSIDE RECORDS SUMMARY | 2023-12-27 05:19 | XMS_ITS | Continuity of Care Document ---
Author Organization [facility] Address [address] [place] [address]- Care Team Providers Care Health Policy Analyst Name Role Phone Yaneth Connor MD Primary Care Physician Encounter [facility] Date(s): 06/10/23 - 08/15/23 [facility] [address] [place] [address]- Attending Physician: Yaya Collins MD Admitting Physician: Yaya Collins MD Referring Physician: Yaneth Connor MD Allergies, Adverse Reactions, Alerts Substance Reaction Severity Status codeine 1 Active Haldol Active 1reaction was Headache per RN 02/2016 admission Immunizations Given and Recorded Vaccine Date Status Refusal Reason SARS-CoV-2(COVID-19)mRNA-LNP vac([id number]) 01/31/23 Recorded [id number] bivalent booster vax 01/28/22 Recorded SARS-CoV-2 (COVID-19) [...] 01/28/23 12:32:00 EST, Route to Pharmacy Electronically, [facility]/pharmacy #[id number], Partial f... Start Date: 01/28/23 Status: Ordered lidocaine 4% topical film 1 patch, Topically, 2 times a day, PRN Pain , Moderate, do not leave patch on for more than 8 hoursat a time, # 6 patch, 0 Refills, Maintenance, 01/28/23 12:32:00 EST, Film, [facility]/pharmacy #[id number], Partial fill upon patient request if the prescription is... Start Date: 01/28/23 Status: Ordered medroxyPROGESTERone 10 mg oral tablet 1, tablet, By Mouth, Daily, # 10 tablet, Refills 0, Maintenance, 05/08/22 8:02:00 EST, Route to Pharmacy Electronically, [id number], 172.5, cm, 04/24/22 16:36:00 EST, Height Start Date: 05/08/22 Stop Date: 05/18/22 Status: Ordered MetFORMIN (Eqv-Glucophage XR) 500 mg oral tablet, extended release 1 tablet, By Mouth, Daily, # 90 tablet, 0 Refills, Maintenance, 05/14/23 14:32:00 EST, [id number], 172.5, cm, 02/27/23 7:52:00 EST, Height Start Date: 05/14/23 Status: Ordered omeprazole 20 mg oral enteric coated capsule 1 capsule, By Mouth, Daily, # 90 capsule, 1 Refills, Maintenance, 01/30/23 9:36:00 EST, [facility]/pharmacy #[id number], 172.5, cm, 01/28/23 12:10:00 EST, Height Start Date: 01/30/23 Status: Ordered ondansetron 4 mg oral tablet 1 tablet = 4 mg, By Mouth, Every 8 hours, # 12 tablet, 0 Refills, Maintenance, 06/11/23 7:47:00 EDT, Tablet, [facility]/pharmacy #[id number], Partial fill upon patient request if the prescription is for a schedule II opioid drug., 170, cm, 05/29/23 0:46:00 EST, He... Start Date: 06/11/23 Status: Ordered prochlorperazine 10 mg oral tablet 1 tablet = 10 mg, By Mouth, 3 times a day, as needed emesis, # 30 tablet, 0 Refills, Maintenance, 06/24/23 9:04:00 EDT, Tablet, [facility]/pharmacy #[id number], Partial fill upon patient request if [...] 07/28/23 7:49:00 EDT, Route to Pharmacy Electronically, [id number], 170, cm, 06/24/23 9:05:00 EDT, Height, 114, kg, 06/12/23 17:38:00 EDT, Dry Weight Start Date: 07/28/23 Status: Ordered Vitamin D3 50,000 intl units oral capsule 1 capsule = 1,250 mcg, By Mouth, Every week, # 12 capsule, 0 Refills, Maintenance, 04/11/22 18:55:00 EST, Capsule, [facility]/pharmacy #[id number], Partial fill upon patient request if [...] Team Personnel Name: Yaneth Connor MD Position: [facility] Physician - Primary Care Member Role: PCP Address: Address: [address] [place] [address]- Care Team Related Persons Name: SHERI CONTRERAS Address: home [address] [place] [address] Name: LUCY LANDRUM Address: home [address] [place] [address] Name: FREDDY WEAVER
--- OUTSIDE RECORDS SUMMARY | 2023-12-27 05:19 | XMS_ITS | Continuity of Care Document ---
Author Organization [facility] Address [address] [place] [address]- Care Team Providers Care Cytogenetic Technician Name Role Phone Geeta MITCHELL, Yaneth Primary Care Physician Encounter [facility] Date(s): 09/28/23 - 10/28/[address] [address]- Allergies, Adverse Reactions, Alerts Substance Reaction Severity Status codeine 1 Active Haldol Active 1reaction was Headache per RN 02/2016 admission Immunizations Given and Recorded Vaccine Date Status Refusal Reason SARS-CoV-2(COVID-19)mRNA-LNP vac([id number]) 01/31/23 Recorded [id number] bivalent booster vax 01/28/22 Recorded SARS-CoV-2 (COVID-19) [...] 01/28/23 12:32:00 EST, Route to Pharmacy Electronically, [facility]/pharmacy #[id number], Partial f... Start Date: 01/28/23 Status: Ordered lidocaine 4% topical film 1 patch, Topically, 2 times a day, PRN Pain , Moderate, do not leave patch on for more than 8 hoursat a time, # 6 patch, 0 Refills, Maintenance, 01/28/23 12:32:00 EST, Film, [facility]/pharmacy #[id number], Partial fill upon patient request if the prescription is... Start Date: 01/28/23 Status: Ordered medroxyPROGESTERone 10 mg oral tablet 1, tablet, By Mouth, Daily, # 10 tablet, Refills 0, Maintenance, 05/08/22 8:02:00 EST, Route to Pharmacy Electronically, [facility] 77676, 172.5, cm, 04/24/22 16:36:00 EST, Height Start Date: 05/08/22 Stop Date: 05/18/22 Status: Ordered MetFORMIN (Eqv-Glucophage XR) 500 mg oral tablet, extended release 1 tablet, By Mouth, Daily, # 90 tablet, 0 Refills, Maintenance, 09/28/23 7:47:00 EDT, [facility] 95177, 170, cm, 06/24/23 9:05:00 EDT, Height, 114, kg, 06/12/23 17:38:00 EDT, Dry Weight Start Date: 09/28/23 Status: Ordered omeprazole 20 mg oral enteric coated capsule 1 capsule, By Mouth, Daily, # 90 capsule, 1 Refills, Maintenance, 09/07/23 8:00:00 EDT, [facility]78[facility], 170, cm, 06/24/23 9:05:00 EDT, Height, 114, kg, 06/12/23 17:38:00 EDT, Dry Weight Start Date: 09/07/23 Status: Ordered ondansetron 4 mg oral tablet 1 tablet = 4 mg, By Mouth, Every 8 hours, # 12 tablet, 0 Refills, Maintenance, 06/11/23 7:47:00 EDT, Tablet, [facility]/pharmacy #[id number], Partial fill upon patient request if the prescription is for a schedule II opioid drug., 170, cm, 05/29/23 0:46:00 EST, He... Start Date: 06/11/23 Status: Ordered prochlorperazine 10 mg oral tablet 1 tablet = 10 mg, By Mouth, 3 times a day, as needed emesis, # 30 tablet, 0 Refills, Maintenance, 06/24/23 9:04:00 EDT, Tablet, [facility]/pharmacy #[id number], Partial fill upon patient request if [...] 07/28/23 7:49:00 EDT, Route to Pharmacy Electronically, [facility] 75323, 170, cm, 06/24/23 9:05:00 EDT, Height, 114, [...] Primary Care Member Role: PCP Address: Address: [address] [place] [address]- Care Team Related Persons Name: SHERI CONTRERAS Address: home [address] [place] [address] Name: LUCY LANDRUM Address: home [address] [place] [address] Name: FREDDY WEAVER
--- OUTSIDE RECORDS SUMMARY | 2023-12-27 05:19 | XMS_ITS | Continuity of Care Document ---
Author Organization [facility] Address [address] [place] [address]- Care Team Providers Care Project Development Manager Name Role Phone Geeta MITCHELL, Yaneth Primary Care Physician Encounter [facility] Date(s): 07/21/22 - 08/20/22 [facility] [address] [place] [address] Attending Physician: Terence Fajardo Admitting Physician: AdmTerence saleh Referring Physician: AdmtrTerence Allergies, Adverse Reactions, Alerts Substance Reaction Severity Status codeine 1 Active Haldol Active 1reaction was Headache per RN 02/2016 admission Immunizations Given and Recorded Vaccine Date Status Refusal Reason [id number] bivalent booster vax 01/28/22 Recorded SARS-CoV-2 (COVID-19) [...] Gm, 1 Refills, Maintenance, 04/12/21 12:34:00 EST, [facility]/pharmacy #[id number], 172.5, cm, 11/23/20 10:06:00 EDT, [...] EST, Route to Pharmacy Electronically, [facility], 172.5, cm, 04/24/22 16:36:00 EST, Height Start [...] Refills, Maintenance, 05/03/22 7:41:00 EST, [facility], 172.5, cm, 04/24/22 16:36:00 EST, Height Start [...] 14:31:00 EST, [id number] Partial fill upon patient requestif the prescription is for a schedule II opioid pili... Start Date: 05/30/22 Status: Ordered Vitamin D3 50,000 intl units oral capsule 1 capsule = 1,250 mcg, By Mouth, Every week, # 12 capsule, 0 Refills, Maintenance, 04/11/22 18:55:00 EST, Capsule, [facility]/pharmacy #[id number], Partial fill upon patient [...] Personnel Name: Yaneth Connor MD Position: S Physician - Primary Care Member Role: PCP Address: Address: [address] [place] [address]- [place] Care Team Related Persons Name: SHERI CONTRERAS Address: home [address] [place] [address] Name: LUCY LANDRUM Address: home [address] [place] [address] Name: FREDDY WEAVER
--- OUTSIDE RECORDS SUMMARY | 2023-12-27 05:19 | XMS_ITS | Continuity of Care Document ---
Author Organization [facility] [employer] Address [address], [address] [place] [address]- Care Team Providers Care Welding Machine Operator Arc Name Role Phone Geeta MITCHELL, Yaneth Primary Care Physician Encounter [facility] Date(s): 02/03/23 - 04/12/23 [facility] [address], [address]th [place] [address]- Attending Physician: Ernestina Hanson MD Admitting Physician: Ernestina Hanson MD Referring Physician: Yaneth Connor MD Allergies, Adverse Reactions, Alerts Substance Reaction Severity Status codeine 1 Active Haldol Active 1reaction was Headache per RN 02/2016 admission Immunizations Given and Recorded Vaccine Date Status Refusal Reason SARS-CoV-2(COVID-19)mRNA-LNP vac([id number]) 01/31/23 Recorded [id number] bivalent booster vax 01/28/22 Recorded SARS-CoV-2 (COVID-19) [...] day, 1... Start Date: 02/27/23 Status: Ordered fluconazole 150 mg oral tablet See Instructions, 1 tablet By mouth today, repeat in 72 hrs if sx persist, # 2 tablet, 0 Refills, Maintenance, 01/30/23 17:30:00 EST, Tablet, [id number], Partial fill upon patient request if the prescription is for a schedule II opioid drug.,... Start Date: 01/30/23 Status: Ordered ibuprofen 600 mg oral tablet 600 mg, 1, tablet, By Mouth, Every 6 hours, PRN, not to exceed 3200 mg/day with food or milk, # 20 tablet, Refills 0, Tot. Refills 0, Maintenance, Pain , Moderate, 01/28/23 12:32:00 EST, Route to Pharmacy Electronically, [facility]/pharmacy #[id number], Partial f... Start Date: 01/28/23 Status: Ordered lidocaine 4% topical film 1 patch, Topically, 2 times a day, PRN Pain , Moderate, do not leave patch on for more than 8 hoursat a time, # 6 patch, 0 Refills, Maintenance, 01/28/23 12:32:00 EST, Film, [facility]/pharmacy #[id number], Partial fill upon patient request if the prescription is... Start Date: 01/28/23 Status: Ordered medroxyPROGESTERone 10 mg oral tablet 1, tablet, By Mouth, Daily, # 10 tablet, Refills 0, Maintenance, 05/08/22 8:02:00 EST, Route to Pharmacy Electronically, [facility], 172.5, cm, 04/24/22 16:36:00 EST, Height Start Date: 05/08/22 Stop Date: 05/18/22 Status: Ordered MetFORMIN (Eqv-Glucophage XR) 500 mg oral tablet, extended release 1 tablet, By Mouth, Daily, # 90 tablet, 0 Refills, Maintenance, 04/09/23 8:23:00 EST, [facility], 172.5, cm, 02/27/23 7:52:00 EST, Height Start Date: 04/09/23 Status: Ordered omeprazole 20 mg oral enteric coated capsule 1 capsule, By Mouth, Daily, # 90 capsule, 1 Refills, Maintenance, 01/30/23 9:36:00 EST, [facility]/pharmacy #[id number], 172.5, cm, 01/28/23 12:10:00 EST, Height Start Date: 01/30/23 Status: Ordered Seroquel 400 mg, By Mouth, [...] 05/30/22 14:31:00 EST, Route to Pharmacy Electronically, [facility]/pharmacy #[id number], Partial fill upon patient requestif the prescription is for a schedule II opioid pili... Start Date: 05/30/22 Status: Ordered Vitamin D3 50,000 intl units oral capsule 1 capsule = 1,250 mcg, By Mouth, Every week, # 12 capsule, 0 Refills, Maintenance, 04/11/22 18:55:00 EST, Capsule, [facility]/pharmacy #[id number], Partial fill upon patient request if [...] Team Personnel Name: Yaneth Connor MD Position: [facility] Physician - Primary Care Member Role: PCP Address: Address: [address] [place] [phone]- Care Team Related Persons Name: SHERI CONTRERAS Address: home [address] [place] [address] Name: LUCY LANDRUM Address: home [address] [place] [address] Name: FREDDY WEAVER
--- OUTSIDE RECORDS SUMMARY | 2023-12-27 05:20 | XMS_ITS | Continuity of Care Document ---
Author Organization [facility] Address [address] [address]- Care Team Providers Care Farmworker Field Crop Name Role Phone Geeta MITCHELL, Yaneth Primary Care Physician En[place] [facility] Date(s): 08/12/22 - 09/11/22 [facility] [address] [address]- Attending Physician: AdmTerence saleh Admitting Physician: AdmtrTerence Referring Physician: Admtr, Ar8 Allergies, Adverse Reactions, Alerts Substance Reaction Severity Status codeine 1 Active Haldol Active 1reaction was Headache per RN 02/2016 admission Immunizations Given and Recorded Vaccine Date Status Refusal Reason [id number] bivalent booster vax 01/28/22 Recorded SARS-CoV-2 (COVID-19) [...] Gm, 1 Refills, Maintenance, 04/12/21 12:34:00 EST, [facility]/pharmacy #[id number], 172.5, cm, 11/23/20 [...] EST, Route to Pharmacy Electronically, [facility], 172.5, cm, 04/24/22 16:36:00 EST, Height Start [...] capsule, 2 Refills, Maintenance, 05/03/22 7:41:00 EST, [facility] 21993, 172.5, cm, 04/24/22 16:36:00 EST, Height Start [...] 05/30/22 14:31:00 EST, [id number] Partial fill upon patient requestif the prescription is for a schedule II opioid pili... Start Date: 05/30/22 Status: Ordered Vitamin D3 50,000 intl units oral capsule 1 capsule = 1,250 mcg, By Mouth, Every week, # 12 capsule, 0 Refills, Maintenance, 04/11/22 18:55:00 EST, Capsule, [facility]/pharmacy #[id number], Partial fill upon [...] Team Personnel Name: Yaneth Connor MD Position: [facility] Physician - Primary Care Member Role: PCP Address: Address: [address] [place] [address]- [place] Care Team Related Persons Name: SHERI CONTRERAS Address: home [address] [place] [address] Name: LUCY LANDRUM Address: home [address] [place] [address] Name: FREDDY WEAVER
--- OUTSIDE RECORDS SUMMARY | 2023-12-27 05:20 | XMS_ITS | Continuity of Care Document ---
Author Organization [facility] Address [address] [place] [address]- Care Team Providers Care Hose Seamer Name Role Phone Geeta MITCHELL, Yaneth Primary Care Physician Encounter [facility] Date(s): 06/18/22 - 08/20/22 [facility] [address] [place] [address] Attending Physician: Stephanie Deleon MD Admitting Physician: Stephanie Deleon MD Referring Physician: Vee Otero MD Allergies, Adverse Reactions, Alerts Substance Reaction Severity Status codeine 1 Active Haldol Active 1reaction was Headache per RN 02/2016 admission Immunizations Given and Recorded Vaccine Date Status Refusal Reason [id number] bivalent booster vax 01/28/22 Recorded SARS-CoV-2 (COVID-19) [...] Gm, 1 Refills, Maintenance, 04/12/21 12:34:00 EST, [facility]/pharmacy #[id number], 172.5, cm, 11/23/20 10:06:00 EDT, Height Start Date: 04/12/21 Status: Ordered clindamycin 1% topical gel 1 application, Topically, 2 times a day, apply a thin film to affected area after washing, # 30 Gm,3 Refills, Maintenance, 06/02/22 16:25:00 EDT, Gel, [facility]/pharmacy #[id number], Partial fill upon patient request if the prescription is for a schedule II opio... Start Date: 06/02/22 Status: Ordered medroxyPROGESTERone 10 mg oral tablet 1, tablet, By Mouth, Daily, # 10 tablet, Refills 0, Maintenance, 05/08/22 8:02:00 EST, Route to Pharmacy Electronically, [facility], 172.5, cm, 04/24/22 16:36:00 EST, Height Start Date: 05/08/22 Stop Date: 05/18/22 Status: Ordered MetFORMIN (Eqv-Glucophage XR) 500 mg oral tablet, extended release 1 tablet = 500 mg, By Mouth, Daily, with largest meal of the day, # 90 tablet, 1 Refills, Maintenance, 05/13/22 12:06:00 EST, [facility]/pharmacy #[id number], Partial fill upon patient request if the prescriptionis for a schedule II opioid drug., 172.5, cm, 05/13... Start Date: 05/13/22 Status: Ordered omeprazole 20 mg oral enteric coated capsule 1 capsule, By Mouth, Daily, # 30 capsule, 2 Refills, Maintenance, 05/03/22 7:41:00 EST, [facility], 172.5, cm, 04/24/22 16:36:00 EST, Height Start [...] 05/30/22 14:31:00 EST, Route to Pharmacy Electronically, [facility]/pharmacy #[id number], Partial fill upon patient requestif the prescription is for a schedule II opioid pili... Start Date: 05/30/22 Status: Ordered Vitamin D3 50,000 intl units oral capsule 1 capsule = 1,250 mcg, By Mouth, Every week, # 12 capsule, 0 Refills, Maintenance, 04/11/22 18:55:00 EST, Capsule, [facility]/pharmacy #[id number], Partial fill upon patient [...] Primary Care Member Role: PCP Address: Address: [address] [place] [address]- [place] Care Team Related Persons Name: SHERI CONTRERAS Address: home [address] [place] [address] Name: LUCY LANDRUM Address: home [address] [place] [address] Name: FREDDY WEAVER
--- OUTSIDE RECORDS SUMMARY | 2023-12-27 05:20 | XMS_ITS | Continuity of Care Document ---
Author Organization [facility] Address [address] [place] [address]- Care Team Providers Care Paint Preparer Name Role Phone Geeta MITCHELL, Yaneth Primary Care Physician [place] [facility] 05/29/23 - 05/29/[address] [address]- Discharge Disposition: A-D/C Home Attending Physician: Karolina Trinh MD Admitting Physician: Karolina Trinh MD Referring Physician: Not on Staff, Referring MD Allergies, Adverse Reactions, Alerts Substance Reaction Severity Status codeine 1 Active Haldol Active 1reaction was Headache per RN 02/2016 admission Immunizations Given and Recorded Vaccine Date Status Refusal Reason SARS-CoV-2(COVID-19)mRNA-LNP vac([id number]) 01/31/23 Recorded [id number] bivalent booster vax 01/28/22 Recorded SARS-CoV-2 (COVID-19) [...] 01/28/23 12:32:00 EST, Route to Pharmacy Electronically, [facility]/pharmacy #[id number], Partial f... Start Date: 01/28/23 Status: Ordered lidocaine 4% topical film 1 patch, Topically, 2 times a day, PRN Pain , Moderate, do not leave patch on for more than 8 hoursat a time, # 6 patch, 0 Refills, Maintenance, 01/28/23 12:32:00 EST, Film, [facility]/pharmacy #[id number], Partial fill upon patient request if the prescription is... Start Date: 01/28/23 Status: Ordered medroxyPROGESTERone 10 mg oral tablet 1, tablet, By Mouth, Daily, # 10 tablet, Refills 0, Maintenance, 05/08/22 8:02:00 EST, Route to Pharmacy Electronically, [facility] 01217, 172.5, cm, 04/24/22 16:36:00 EST, Height Start Date: 05/08/22 Stop Date: 05/18/22 Status: Ordered MetFORMIN (Eqv-Glucophage XR) 500 mg oral tablet, extended release 1 tablet, By Mouth, Daily, # 90 tablet, 0 Refills, Maintenance, 05/14/23 14:32:00 EST, [facility], 172.5, cm, 02/27/23 7:52:00 EST, Height Start Date: 05/14/23 Status: Ordered omeprazole 20 mg oral enteric coated capsule 1 capsule, By Mouth, Daily, # 90 capsule, 1 Refills, Maintenance, 01/30/23 9:36:00 EST, [id number], 172.5, cm, 01/28/23 12:10:00 EST, Height Start Date: 01/30/23 Status: Ordered ondansetron 4 mg oral tablet 1 tablet = 4 mg, By Mouth, Every 8 hours, # 12 tablet, 0 Refills, Maintenance, 05/28/23 12:48:00 EST, Tablet, [facility]/pharmacy #[id number], Partial fill upon patient request if the prescription is for a schedule II opioid drug., 170, cm, 05/28/23 7:53:00 EST, H... Start Date: 05/28/23 Status: Ordered Seroquel 400 mg, By Mouth, [...] 05/30/22 14:31:00 EST, Route to Pharmacy Electronically, [facility]/pharmacy #[id number], Partial fill upon patient requestif [...] Confirmed Active Pre-diabetes Confirmed Active Severe obesity (BMI 35.0-39.9) with comorbidity Confirmed Active Vital Signs Most recent to oldest [Reference Range]: 1 2 Height 170 cm (05/29/23 12:46 AM) Weight 113.5 kg (05/29/23 12:46 AM) Oxygen Saturation [94-100 %] 99 % (05/29/23 6:00 AM) 100 % (05/29/23 12:46 AM) Pulse Rate [55-90 bpm] 94 bpm *H* (05/29/23 6:00 AM) 96 bpm *H* (05/29/23 12:46 AM) Body Mass Index [18.5-24.99 kg/m2] 39.27 kg/m2 *>HHI* (05/29/23 12:46 AM) Blood Pressure [90-138/55-84 mm Hg] 154/ 92mm Hg *H* (05/29/23 6:00 AM) 168/96mm Hg *H* (05/29/23 12:46 AM) Respiratory Rate [16-30 br/min] 18 br/mi n (05/29/23 6:00 AM) 18 br/min (05/29/23 12:46 AM) Temperature [96.8-100.4 DegF] 98.4 DegF (05/29/23 12:46 AM) Mode of Delivery (Oxygen) Room air (05/29/23 12:46 AM) Blood pressure sites Arm, left (05/29/23 12:46 AM) Temperature Route Oral (05/29/23 12:46 AM) Dry Weight 113.5 kg (05/29/23 12:46 AM) Weight Obtained Via Patient/family state d (05/29/23 12:46 AM) Dry Weight Obtained Via Patient/family s tated (05/29/23 12:46 AM) Social History Social History Type Response Smoking Status Never (less than 100 in lifetime) entered on: 05/23/20 Sex Patient Care team information Care Team Personnel Name: Yaneth Connor MD Position: S Physician - Primary Care Member Role: PCP Address: Address: [address] [place] [address]- Care Team Related Persons Name: SHERI CONTRERAS Address: home [address] [place] [address] Name: LUCY LANDRUM Address: [address] [place] [address] Name: FREDDY WEAVER
--- OUTSIDE RECORDS SUMMARY | 2023-12-27 05:20 | XMS_ITS | Continuity of Care Document ---
Author Organization [facility] Address [address], [address] [place] [address]- Care Team Providers Care Feather Stitcher Name Role Phone Geeta MITCHELL, Yaneth Primary Care Physician [place] [facility] [place] [facility] [address] [facility] [place], [place] [address] Attending Physician: Admtr, Terence Admitting Physician: AdmtrTerence Referring Physician: Admtr, Ar8 Allergies, Adverse Reactions, Alerts Substance Reaction Severity Status codeine 1 Active Haldol Active 1reaction was Headache per RN 02/2016 admission Immunizations Given and Recorded Vaccine Date Status Refusal Reason SARS-CoV-2(COVID-19)mRNA-LNP vac([id number]) 01/31/23 Recorded [id number] bivalent booster vax 01/28/22 Recorded SARS-CoV-2 (COVID-19) [...] 01/28/23 12:32:00 EST, Route to Pharmacy Electronically, [facility]/pharmacy #[id number], Partial f... Start Date: 01/28/23 Status: Ordered lidocaine 4% topical film 1 patch, Topically, 2 times a day, PRN Pain , Moderate, do not leave patch on for more than 8 hoursat a time, # 6 patch, 0 Refills, Maintenance, 01/28/23 12:32:00 EST, Film, [facility]/pharmacy #[id number], Partial fill upon patient request if the prescription is... Start Date: 01/28/23 Status: Ordered medroxyPROGESTERone 10 mg oral tablet 1, tablet, By Mouth, Daily, # 10 tablet, Refills 0, Maintenance, 05/08/22 8:02:00 EST, Route to Pharmacy Electronically, [facility], 172.5, cm, 04/24/22 16:36:00 EST, Height Start Date: 05/08/22 Stop Date: 05/18/22 Status: Ordered MetFORMIN (Eqv-Glucophage XR) 500 mg oral tablet, extended release 1 tablet, By Mouth, Daily, # 90 tablet, 0 Refills, Maintenance, 04/09/23 8:23:00 EST, [facility], 172.5, cm, 02/27/23 7:52:00 EST, Height Start Date: 04/09/23 Status: Ordered omeprazole 20 mg oral enteric coated capsule 1 capsule, By Mouth, Daily, # 90 capsule, 1 Refills, Maintenance, 01/30/23 9:36:00 EST, [facility]/pharmacy #[id number], 172.5, cm, 01/28/23 12:10:00 EST, Height [...] 05/30/22 14:31:00 EST, Route to Pharmacy Electronically, [facility]/pharmacy #[id number], Partial fill upon patient requestif the prescription is for a schedule II opioid pili... Start Date: 05/30/22 Status: Ordered Vitamin D3 50,000 intl units oral capsule 1 capsule = 1,250 mcg, By Mouth, Every week, # 12 capsule, 0 Refills, Maintenance, 04/11/22 18:55:00 EST, Capsule, [facility]/pharmacy #[id number], Partial fill upon patient request [...] Connor MD Position: [facility] Physician - Primary Care Member Role: PCP Address: Address: [address] [place] [address]- Care Team Related Persons Name: SHERI CONTRERAS Address: home [address] [place] [address] Name: LUCY LANDRUM Address: home [address] [place] [address] Name: FREDDY WEAVER
--- OUTSIDE RECORDS SUMMARY | 2023-12-27 05:20 | XMS_ITS | Continuity of Care Document ---
Author Organization [facility] ter Address [address] [place] [address]- Care Team Providers Care Gas Turbine Assembler Name Role Phone Geeta MITCHELL, Yaneth Primary Care Physician Encounter [facility] Date(s): 05/28/23 - 05/28/[address] [address]- Encounter Diagnosis Cyclic vomiting syndrome(Final) - 05/28/23 Discharge Disposition: A-D/C Home Attending Physician: Rosemarie Carrizales MD Admitting Physician: Rosemarie Carrizales MD Referring Physician: Not on Staff, Referring MD Allergies, Adverse Reactions, Alerts Substance Reaction Severity Status codeine 1 Active Haldol Active 1reaction was Headache per RN 02/2016 admission Immunizations Given and Recorded Vaccine Date Status Refusal Reason SARS-CoV-2(COVID-19)mRNA-LNP vac([id number]) 01/31/23 Recorded [id number] bivalent booster vax 01/28/22 Recorded SARS-CoV-2 (COVID-19) [...] 01/28/23 12:32:00 EST, Route to Pharmacy Electronically, [facility]/pharmacy #[id number], Partial f... Start Date: 01/28/23 Status: Ordered Ketorolac Inj 15 mg, Injection, IV Push Slowly, Once, STAT, 05/28/23 12:30:00 EST, Stop date 05/28/23 12:30:00 EST Start Date: 05/28/23 Stop Date: 05/28/23 Status: Completed lidocaine 4% topical film 1 patch, Topically, 2 times a day, PRN Pain , Moderate, do not leave patch on for more than 8 hoursat a time, # 6 patch, 0 Refills, Maintenance, 01/28/23 12:32:00 EST, Film, [facility]/pharmacy #[id number], Partial fill upon patient request if the prescription is... Start Date: 01/28/23 Status: Ordered medroxyPROGESTERone 10 mg oral tablet 1, tablet, By Mouth, Daily, # 10 tablet, Refills 0, Maintenance, 05/08/22 8:02:00 EST, Route to Pharmacy Electronically, [id number], 172.5, cm, 04/24/22 16:36:00 EST, Height Start Date: 05/08/22 Stop Date: 05/18/22 Status: Ordered MetFORMIN (Eqv-Glucophage XR) 500 mg oral tablet, extended release 1 tablet, By Mouth, Daily, # 90 tablet, 0 Refills, Maintenance, 05/14/23 14:32:00 EST, [facility], 172.5, cm, 02/27/23 7:52:00 EST, Height Start Date: 05/14/23 Status: Ordered omeprazole 20 mg oral enteric coated capsule 1 capsule, By Mouth, Daily, # 90 capsule, 1 Refills, Maintenance, 01/30/23 9:36:00 EST, [facility]/pharmacy #[id number], 172.5, cm, 01/28/23 12:10:00 EST, Height Start Date: 01/30/23 Status: Ordered ondansetron 4 mg oral tablet 1 tablet = 4 mg, By Mouth, Every 8 hours, # 12 tablet, 0 Refills, Maintenance, 05/28/23 12:48:00 EST, Tablet, [id number], Partial fill upon [...] [Reference Range]: 1 2 Height 170 cm (05/28/23 7:53 AM) Weight 114 kg (05/28/23 7:53 AM) Oxygen Saturation [94-100 %] 100 % (05/28/23 7:53 AM) Pulse Rate [55-90 bpm] 101 bpm *H* (05/28/23 7:53 AM) Body Mass Index [18.5-24.99 kg/m2] 39.45 kg/m2 *>HHI* (05/28/23 7:53 AM) Blood Pressure [90-138/55-84 mm Hg] 139/ 100mm Hg *H* (05/28/23 7:53 AM) Respiratory Rate [16-30 br/min] 18 br/mi n (05/28/23 1:10 PM) 18 br/min (05/28/23 7:53 AM) Temperature [96.8-100.4 DegF] 98.1 DegF (05/28/23 7:53 AM) Mode of Delivery (Oxygen) Room air (05/28/23 7:53 AM) Blood pressure sites Arm, left (05/28/23 7:53 AM) Temperature Route Oral (05/28/23 7:53 AM) Dry Weight 114 kg (05/28/23 7:53 AM) Weight Obtained Via Patient/family state d (05/28/23 7:53 AM) Dry Weight Obtained Via Patient/family s tated (05/28/23 7:53 AM) Social History Social History Type Response Smoking Status Never (less than 100 in lifetime) entered on: 05/23/20 Sex Note * Cisco Montero DO: PERFORM Event Display: Patient Education Leaflets Authored Date: [id number] Vomiting (Adult) ?? [id number] Vomiting (Adult) Vomiting is a common symptom that may be due to different causes. These include gastroenteritis (stomach flu), food poisoning, and gastritis. Other more serious causes of vomiting may be hard to diagnose early in the illness. That's why it's important to watch for the warning signs listed below. The main danger from repeated vomiting is dehydration. This is because of the loss of water and minerals from the body. When this occurs, your body fluids must be replaced. Home care ??? If symptoms are severe, rest at home for the next 24 hours. ??? Because your symptoms may be from an infection, wash your hands often and well. Use soap and clean, running water or alcohol-based telegraph installer to keep from spreading the infection to others. ??? Wash your hands for at least 20 seconds. Scrub all surfaces of your hands, including between your fingers and under your fingernails each time you wash. Humming the Happy Birthday song twice while you wash is an easy way to make sure you've washed for 20 seconds. ??? Wash your hands after using the toilet, before and after preparing food, before eating food, after changing a diaper, cleaning a wound, caring for a sick person, and blowing your nose, coughing, or sneezing. You should also wash your hands after caring for someone who is sick, touching pet food, or treats, and touching an animal, or animal waste. ??? You may use acetaminophen??or NSAID medicines such as ibuprofen or naproxen to control fever, unless another medicinewas prescribed. Talk with your provider before using these medicines if you have chronic liver or kidney disease or ever had a stomach ulcer or digestive bleeding. Never give aspirin to anyone younger than 18 who is ill with a fever. It may cause severe liver damage. Don't use NSAID medicines if you are already taking one for another condition such as arthritis or take aspirin for heart disease or after a stroke. ??? Don't use tobacco or drink alcohol. These may make your symptoms worse. If youhave trouble stopping either substance, ask your provider for treatment resources. ??? If medicinesfor vomiting were prescribed, take as directed. Tell your provider if they don't work within the expected time period. ??? Once vomiting stops, then follow these guidelines: During the first 12 to 24 hours, follow the diet below: ??? Fruit juices. Apple, grape juice, clear fruit drinks, and electrolyte replacement drinks. ??? Beverages. Water, soft drinks without caffeine; mineral water (plain or flavored), and decaffeinated tea and coffee. ??? Soups. Clear broth and bouillon. ??? Desserts. Plain gelatin, ice pops, and fruit juice bars. As you feel better, you may add 6 to 8 ounces of yogurt per day. During the next 24 hours you may add the following to the above: ??? Hot cereal, plain toast, bread, rolls, and crackers ??? Plain noodles, rice, mashed potatoes, and chicken noodle or rice soup ??? Unsweetened canned fruit such as applesauce, bananas. Don't have pineapple or citrus. ??? Limit caffeine and chocolate. No spices or seasonings except salt. During the next 24 hours: Gradually go back to your normal diet, as you feel better and your symptoms lessen. ?? Follow-up care Follow up with your healthcare provider as advised. ?? When to seek medical advice Call your healthcare provider right away if any of these occur: ??? Constant right-sided lower belly pain or increasing general belly pain ??? Continued vomiting (unable to keep liquids down) for 24 hours ??? Vomiting blood or what looks like coffee grounds ??? Swollen belly ??? Frequent diarrhea (more than 5 times a day), or blood (red or black color) or mucus in diarrhea ??? Peeing less than usual or extreme thirst ??? Weakness, dizziness, or fainting ??? Unusually drowsy or confused ??? Fever of 100.4??F (38??C) oral or higher, or as directed by your provider ??? Yellow color of the eyes or skin ??? Other symptoms get worse or you have new symptoms ?? Last Reviewed Date: 2021 ?? [id number] [employer]. All rights reserved. This information is not intended as a substitute for professional medical care. Always follow your healthcare professional's instructions. ?? Patient Care team information Care Team Personnel Name: Yaneth Connor MD Position: S Physician - Primary Care Member Role: PCP Address: Address: [address] [place] [address]- Care Team Related Persons Name: SHERI CONTRERAS Address: home [address] [place] [address] Name: LUCY LANDRUM Address: home [address] [place] [address] Name: FREDDY WEAVER
--- OUTSIDE RECORDS SUMMARY | 2023-12-27 05:20 | XMS_ITS | Continuity of Care Document ---
Author Organization [facility] Address [address] [place] [address]- Care Team Providers Care Clothing Examiner Name Role Phone Yaneth Connor MD Primary Care Physician Encounter [facility] Date(s): 06/25/22 - 09/21/22 [facility] [address] 4[address] [place] [address]- Attending Physician: Vee Otero MD Allergies, Adverse Reactions, Alerts Substance Reaction Severity Status codeine 1 Active Haldol Active 1reaction was Headache per RN 02/2016 admission Immunizations Given and Recorded Vaccine Date Status Refusal Reason [id number] bivalent booster vax 01/28/22 Recorded SARS-CoV-2 (COVID-19) [...] Gm, 1 Refills, Maintenance, 04/12/21 12:34:00 EST, [facility]/pharmacy #[id number], 172.5, cm, 11/23/20 [...] 05/08/22 8:02:00 EST, Route to Pharmacy Electronically, [facility] [id number], 172.5, cm, 04/24/22 16:36:00 EST, Height Start [...] Refills, Maintenance, 05/03/22 7:41:00 EST, [facility], 172.5, cm, 04/24/22 16:36:00 EST, Height Start [...] 05/30/22 14:31:00 EST, [id number] fill upon patient requestif the prescription is for a schedule II opioid pili... Start Date: 05/30/22 Status: Ordered Vitamin D3 50,000 intl units oral capsule 1 capsule = 1,250 mcg, By Mouth, Every week, # 12 capsule, 0 Refills, Maintenance, 04/11/22 18:55:00 EST, Capsule, [facility]/pharmacy #[id number], Partial fill upon [...] Primary Care Member Role: PCP Address: Address: [address] [place] [address]- Care Team Related Persons Name: SHERI CONTRERAS Address: home [address] [place] [address] Name: LUCY LANDRUM Address: home [address] [place] [address] Name: FREDDY WEAVER
--- OUTSIDE RECORDS SUMMARY | 2023-12-27 05:20 | XMS_ITS | Continuity of Care Document ---
Author Organization [facility] Address [address] [place] [address]- Care Team Providers Care Psychological Stress Evaluator Name Role Phone Geeta MITCHELL, Yaneth Primary Care Physician Encounter [facility] Date(s): 02/27/23 - 03/29/[address] [address]- Allergies, Adverse Reactions, Alerts Substance Reaction Severity Status codeine 1 Active Haldol Active 1reaction was Headache per RN 02/2016 admission Immunizations Given and Recorded Vaccine Date Status Refusal Reason SARS-CoV-2(COVID-19)mRNA-LNP vac([id number]) 01/31/23 Recorded [id number] bivalent booster vax 01/28/22 Recorded SARS-CoV-2 (COVID-19) [...] 12:32:00 EST, [id number] f... Start Date: 01/28/23 Status: Ordered lidocaine 4% topical film 1 patch, Topically, 2 times a day, PRN Pain , Moderate, do not leave patch on for more than 8 hoursat a time, # 6 patch, 0 Refills, Maintenance, 01/28/23 12:32:00 EST, Film, [facility]/pharmacy #[id number], Partial fill upon patient request if the prescription is... Start Date: 01/28/23 Status: Ordered medroxyPROGESTERone 10 mg oral tablet 1, tablet, By Mouth, Daily, # 10 tablet, Refills 0, Maintenance, 05/08/22 8:02:00 EST, Route to Pharmacy Electronically, [facility] [id number], 172.5, cm, 04/24/22 16:36:00 EST, Height Start Date: 05/08/22 Stop Date: 05/18/22 Status: Ordered MetFORMIN (Eqv-Glucophage XR) 500 mg oral tablet, extended release 1 tablet = 500 mg, By Mouth, Daily, # 90 tablet, 0 Refills, Maintenance, 01/30/23 9:36:00 EST, [facility]/pharmacy #[id number], Partial fill upon patient request if the prescription is for a schedule II opioid drug., 172.5, cm, 01/28/23 12:10:00 EST, Height Start Date: 01/30/23 Status: Ordered MetFORMIN (Eqv-Glucophage XR) 500 mg oral tablet, extended release 1 tablet = 500 mg, By Mouth, Daily, with largest meal of the day, # 90 tablet, 1 Refills, Maintenance, 05/13/22 12:06:00 EST, [facility]/pharmacy #[id number], Partial fill upon patient [...] EST, Route to Pharmacy Electronically, [facility]/pharmacy #[id number], Partial fill upon patient requestif the prescription is for a schedule II opioid pili... Start Date: 05/30/22 Status: Ordered Vitamin D3 50,000 intl units oral capsule 1 capsule = 1,250 mcg, By Mouth, Every week, # 12 capsule, 0 Refills, Maintenance, 04/11/22 18:55:00 EST, Capsule, [facility]/pharmacy #[id number], Partial fill upon patient [...] Primary Care Member Role: PCP Address: Address: [address] [place] [address]- Care Team Related Persons Name: SHERI CONTRERAS Address: home [address] [place] [address] Name: LUCY LANDRUM Address: [address] [place] [address] Name: FREDDY WEAVER
--- OUTSIDE RECORDS SUMMARY | 2023-12-27 05:20 | XMS_ITS | Continuity of Care Document ---
Author Organization [facility] ter Address [address] [place] [address]- Care Team Providers Care Salvage Engineer Name Role Phone Yaneth Connor MD Primary Care Physician Encounter [facility] Date(s): 05/27/23 - 05/27/[address] [address]- Encounter Diagnosis Cyclic vomiting syndrome(Final) - 05/27/23 Discharge Disposition: A-D/C Home Attending Physician: Thai Chaudhry DO Admitting Physician: Thai Chaudhry DO Referring Physician: Not on Staff, Referring MD Allergies, Adverse Reactions, Alerts Substance Reaction Severity Status codeine 1 Active Haldol Active 1reaction was Headache per RN 02/2016 admission Immunizations Given and Recorded Vaccine Date Status Refusal Reason SARS-CoV-2(COVID-19)mRNA-LNP vac([id number]) 01/31/23 Recorded [id number] bivalent booster vax 01/28/22 Recorded SARS-CoV-2 (COVID-19) [...] 01/28/23 12:32:00 EST, Route to Pharmacy Electronically, [facility]/pharmacy #[id number], Partial f... Start Date: 01/28/23 Status: Ordered lidocaine 4% topical film 1 patch, Topically, 2 times a day, PRN Pain , Moderate, do not leave patch on for more than 8 hoursat a time, # 6 patch, 0 Refills, Maintenance, 01/28/23 12:32:00 EST, Film, [facility]/pharmacy #[id number], Partial fill upon patient request if the prescription is... Start Date: 01/28/23 Status: Ordered medroxyPROGESTERone 10 mg oral tablet 1, tablet, By Mouth, Daily, # 10 tablet, Refills 0, Maintenance, 05/08/22 8:02:00 EST, Route to Pharmacy Electronically, [facility], 172.5, cm, 04/24/22 16:36:00 EST, Height Start Date: 05/08/22 Stop Date: 05/18/22 Status: Ordered MetFORMIN (Eqv-Glucophage XR) 500 mg oral tablet, extended release 1 tablet, By Mouth, Daily, # 90 tablet, 0 Refills, Maintenance, 05/14/23 14:32:00 EST, [facility], 172.5, cm, 02/27/23 7:52:00 EST, Height Start Date: 05/14/23 Status: Ordered MorPHINE Inj 4 mg, Injection, IV Push Slowly, Once, STAT, 05/27/23 15:43:00 EST, Stop date 05/27/23 15:43:00 EST Start Date: 05/27/23 Stop Date: 05/27/23 Status: Completed MorPHINE Inj 4 mg, Injection, IV Push Slowly, Once, STAT, 05/27/23 13:30:00 EST, Stop date 05/27/23 13:30:00 EST Start Date: 05/27/23 Stop Date: 05/27/23 Status: Completed omeprazole 20 mg oral enteric coated capsule 1 capsule, By Mouth, Daily, # 90 capsule, 1 Refills, Maintenance, 01/30/23 9:36:00 EST, [facility]/pharmacy #[id number], 172.5, cm, 01/28/23 12:10:00 EST, [...] to oldest [Reference Range]: 1 2 3 Height 170 cm (05/27/23 1:30 PM) Weight 113.6 kg (05/27/23 1:30 PM) Pulse Rate [55-90 bpm] 80 bpm (05/27/23 1:30 PM) Blood Pressure [90-138/55-84 mm Hg] 166/110mm Hg *H* (05/27/23 1:30 PM) Respiratory Rate [16-30 br/min] 18 br/min (05/27/23 4:11 PM) 16 br/min (05/27/23 2:22 PM) 18 br/min (05/27/23 1:52 PM) Temperature [96.8-100.4 DegF] 98.0 DegF (05/27/23 1:30 PM) Mode of Delivery (Oxygen) Room air (05/27/23 1:30 PM) Temperature Route Oral (05/27/23 1:30 PM) Dry Weight 113.6 kg (05/27/23 1:30 PM) Weight Obtained Via Patient/family state d (05/27/23 1:30 PM) Dry Weight Obtained Via Patient/family s tated (05/27/23 1:30 PM) Social History Social History Type Response Smoking Status Never (less than 100 in lifetime) entered on: 05/23/20 Sex EKG study * Event Display: ECG 12-Lead Please click on pdf link to open report * Event Display: ECG 12-Lead Ventricular Rate: 95 BPM Atrial Rate: 95 BPM P-R Interval: 180 ms QRS Duration: 104 ms Q-T Interval: 394 ms QTC Calculation(Bazett): 495 ms P [place]: 69 degrees R [place]: 51 degrees T [place]: 50 degrees Sinus rhythm with occasional Premature ventricular complexes Prolonged QT Abnormal ECG When compared with ECG of 04-APR-2021 12:59, Premature ventricular complexes are now Present Confirmed by Steven Forrest ([id number]) on 05/28/2023 12:04:17 AM [place]: Steven Forrest Patient Care team information Care Team Personnel Name: Yaneth Connor MD Position: S Physician - Primary Care Member Role: PCP Address: Address: [address] [place] [address]- Care Team Related Persons Name: BENSHERI Address: home [address] [place] [address] Name: LUCY LANDRUM Address: home [address] [place] [address] Name: FREDDY WEAVER
--- OUTSIDE RECORDS SUMMARY | 2023-12-27 05:20 | XMS_ITS | Continuity of Care Document ---
Author Organization [facility] Address [address] [place] [address]- Care Team Providers Care Director Of Curriculum Name Role Phone Geeta MITCHELL, Yaneth Primary Care Physician Encounter [facility] Date(s): 09/03/22 - 10/03/[address] [address]- Attending Physician: Admtr, Ar8 Allergies, Adverse Reactions, Alerts Substance Reaction Severity Status codeine 1 Active Haldol Active 1reaction was Headache per RN 02/2016 admission Immunizations Given and Recorded Vaccine Date Status Refusal Reason [id number] bivalent booster vax 01/28/22 Recorded SARS-CoV-2 (COVID-19) [...] Gm, 1 Refills, Maintenance, 04/12/21 12:34:00 EST, [facility]/pharmacy #[id number], 172.5, cm, 11/23/20 10:06:00 [...] 05/08/22 8:02:00 EST, Route to Pharmacy Electronically, [facility]ORE [id number], 172.5, cm, 04/24/22 16:36:00 EST, Height Start [...] Refills, Maintenance, 05/03/22 7:41:00 EST, [facility], 172.5, cm, 04/24/22 16:36:00 EST, Height Start [...] 14:31:00 EST, Route to Pharmacy Electronically, [facility]/pharmacy #[id number], Partial fill upon patient requestif the prescription is for a schedule II opioid pili... Start Date: 05/30/22 Status: Ordered Vitamin D3 50,000 intl units oral capsule 1 capsule = 1,250 mcg, By Mouth, Every week, # 12 capsule, 0 Refills, Maintenance, 04/11/22 18:55:00 EST, Capsule, [facility]/pharmacy #[id number], Partial fill upon patient [...] Primary Care Member Role: PCP Address: Address: [address] [place] [address]- Care Team Related Persons Name: BEN SHERI Address: home [address] [place] [address] Name: LUCY LANDRUM Address: home [address] [place] [address] Name: FREDDY WEAVER
--- OUTSIDE RECORDS SUMMARY | 2023-12-27 05:20 | XMS_ITS | Continuity of Care Document ---
Author Organization [facility] Address [address] [place] [address]- Care Team Providers Care Bsa/Aml Compliance Officer Name Role Phone Geeta MITCHELL, Yaneth Primary Care Physician Encounter [facility] Date(s): 05/27/22 - [facility]11[facility] [address] [address]- Attending Physician: Not on Staff, Attending MD Referring Physician: Vee Otero MD Allergies, Adverse Reactions, Alerts Substance Reaction Severity Status codeine 1 Active Haldol Active 1reaction was Headache per RN 02/2016 admission Immunizations Given and Recorded Vaccine Date Status Refusal Reason [id number] bivalent booster vax 01/28/22 Recorded SARS-CoV-2 (COVID-19) [...] Gm, 1 Refills, Maintenance, 04/12/21 12:34:00 EST, [facility]/pharmacy #[id number], 172.5, cm, 11/23/20 10:06:00 EDT, Height Start Date: 04/12/21 Status: Ordered clindamycin 1% topical gel 1 application, Topically, 2 times a day, apply a thin film to affected area after washing, # 30 Gm,3 Refills, Maintenance, 06/02/22 16:25:00 EDT, Gel, [facility]/pharmacy #[id number], Partial fill upon patient request if the prescription is for a schedule II opio... Start Date: 06/02/22 Status: Ordered medroxyPROGESTERone 10 mg oral tablet 1, tablet, By Mouth, Daily, # 10 tablet, Refills 0, Maintenance, 05/08/22 8:02:00 EST, Route to [facility]acy Electronically, [facility], 172.5, cm, 04/24/22 16:36:00 EST, Height Start Date: 05/08/22 Stop Date: 05/18/22 Status: Ordered MetFORMIN (Eqv-Glucophage XR) 500 mg oral tablet, extended release 1 tablet = 500 mg, By Mouth, Daily, with largest meal of the day, # 90 tablet, 1 Refills, Maintenance, 05/13/22 12:06:00 EST, [facility]/pharmacy #[id number], Partial fill upon patient request if the prescriptionis for a schedule II opioid drug., 172.5, cm, 05/13... Start Date: 05/13/22 Status: Ordered omeprazole 20 mg oral enteric coated capsule 1 capsule, By Mouth, Daily, # 30 capsule, 2 Refills, Maintenance, 05/03/22 7:41:00 EST, [facility], 172.5, cm, 04/24/22 16:36:00 EST, Height Start [...] 05/30/22 14:31:00 EST, Route to Pharmacy Electronically, [facility]/pharmacy #[id number], Partial fill upon patient requestif the prescription is for a schedule II opioid pili... Start Date: 05/30/22 Status: Ordered Vitamin D3 50,000 intl units oral capsule 1 capsule = 1,250 mcg, By Mouth, Every week, # 12 capsule, 0 Refills, Maintenance, 04/11/22 18:55:00 EST, Capsule, [facility]/pharmacy #[id number], Partial fill upon [...] Primary Care Member Role: PCP Address: Address: [address] [place] [address]- Care Team Related Persons Name: SHERI CONTRERAS Address: [address] [place] [address] Name: LUCY LANDRUM Address: [address] [place] [address] Name: FREDDY WEAVER
--- OUTSIDE RECORDS SUMMARY | 2023-12-27 05:20 | XMS_ITS | Continuity of Care Document ---
Author Organization [facility] [employer] [facility] Address [address] [place] [address], [address] [place] [address]- Care Team Providers Care Marketing Segment Manager Name Role Phone Geeta MITCHELL, Yaneth Primary Care Physician Encounter [facility] Date(s): 04/21/23 - 05/21/23 [facility] [employer] [facility] [address] [facility], 4th Floor [place], [place] [address] Attending Physician: AdmTerence saleh Admitting Physician: AdmtrTerence Referring Physician: AdmtrTerence Allergies, Adverse Reactions, Alerts Substance Reaction Severity Status codeine 1 Active Haldol Active 1reaction was Headache per RN 02/2016 admission Immunizations Given and Recorded Vaccine Date Status Refusal Reason SARS-CoV-2(COVID-19)mRNA-LNP vac([id number]) 01/31/23 Recorded [id number] bivalent booster vax 01/28/22 Recorded SARS-CoV-2 (COVID-19) [...] 01/28/23 12:32:00 EST, Route to Pharmacy Electronically, [facility]/pharmacy #[id number], Partial f... Start Date: 01/28/23 Status: Ordered lidocaine 4% topical film 1 patch, Topically, 2 times a day, PRN Pain , Moderate, do not leave patch on for more than 8 hoursat a time, # 6 patch, 0 Refills, Maintenance, 01/28/23 12:32:00 EST, Film, [facility]/pharmacy #[id number], Partial fill upon patient request if the prescription is... Start Date: 01/28/23 Status: Ordered medroxyPROGESTERone 10 mg oral tablet 1, tablet, By Mouth, Daily, # 10 tablet, Refills 0, Maintenance, 05/08/22 8:02:00 EST, Route to Pharmacy Electronically, [id number], 172.5, cm, 04/24/22 16:36:00 EST, Height Start Date: 05/08/22 Stop Date: 05/18/22 Status: Ordered MetFORMIN (Eqv-Glucophage XR) 500 mg oral tablet, extended release 1 tablet, By Mouth, Daily, # 90 tablet, 0 Refills, Maintenance, 05/14/23 14:32:00 EST, [id number], 172.5, cm, 02/27/23 7:52:00 EST, Height Start Date: 05/14/23 Status: Ordered omeprazole 20 mg oral enteric coated capsule 1 capsule, By Mouth, Daily, # 90 capsule, 1 Refills, Maintenance, 01/30/23 9:36:00 EST, [facility]/pharmacy #[id number], 172.5, cm, 01/28/23 12:10:00 EST, [...] 05/30/22 14:31:00 EST, Route to Pharmacy Electronically, [facility]/pharmacy #[id number], Partial fill upon patient requestif the prescription is for a schedule II opioid pili... Start Date: 05/30/22 Status: Ordered Vitamin D3 50,000 intl units oral capsule 1 capsule = 1,250 mcg, By Mouth, Every week, # 12 capsule, 0 Refills, Maintenance, 04/11/22 18:55:00 EST, Capsule, [facility]/pharmacy #[id number], Partial fill upon [...] Personnel Name: Yaneth Connor MD Position: [facility] Physician - Primary Care Member Role: PCP Address: Address: [address] [place] [address]- Care Team Related Persons Name: SHERI CONTRERAS Address: home [address] [place] [address] Name: LUCY LANDRUM Address: home [address] [place] [address] Name: FREDDY WEAVER
--- OUTSIDE RECORDS SUMMARY | 2023-12-27 05:21 | XMS_ITS | Continuity of Care Document ---
Author Organization [facility] Address [address], [address]t [address] [place] [address]- Care Team Providers Care Industrial Relations Representative Name Role Phone Yaneth Connor MD Primary Care Physician Encounter [facility] Date(s): 08/22/22 - 09/21/22 [facility] [address], [address]th [address] [place], [place] [address] Attending Physician: Terence Fajardo Admitting Physician: AdmTerence saleh Referring Physician: AdmtrTerence Allergies, Adverse Reactions, Alerts Substance Reaction Severity Status codeine 1 Active Haldol Active 1reaction was Headache per RN 02/2016 admission Immunizations Given and Recorded Vaccine Date Status Refusal Reason [id number] bivalent booster vax 01/28/22 Recorded SARS-CoV-2 (COVID-19) [...] Gm, 1 Refills, Maintenance, 04/12/21 12:34:00 EST, [facility]/pharmacy #[id number], 172.5, cm, 11/23/20 10:06:00 EDT, Height [...] EST, Route to Pharmacy Electronically, [id number], 172.5, cm, 04/24/22 16:36:00 EST, Height Start [...] Refills, Maintenance, 05/03/22 7:41:00 EST, [id number], 172.5, cm, 04/24/22 16:36:00 EST, Height Start [...] 05/30/22 14:31:00 EST, [id number] fill upon patient requestif the prescription is for a schedule II opioid pili... Start Date: 05/30/22 Status: Ordered Vitamin D3 50,000 intl units oral capsule 1 capsule = 1,250 mcg, By Mouth, Every week, # 12 capsule, 0 Refills, Maintenance, 04/11/22 18:55:00 EST, Capsule, [facility]/pharmacy #[id number], Partial fill upon patient request if [...] Care Member Role: PCP Address: Address: [address] [place] [address]- [place] Care Team Related Persons Name: SHERI CONTRERAS Address: [address] [place] [address] Name: LUCY LANDRUM Address: home [address] [place] [address] Name: FREDDY WEAVER
--- OUTSIDE RECORDS SUMMARY | 2023-12-27 05:21 | XMS_ITS | Continuity of Care Document ---
Author Organization [facility] Address [address] [place] [address]- Care Team Providers Care Pantomimist Name Role Phone eGeta MITCHELL, Yaneth Primary Care Physician Encounter [facility] Date(s): 01/28/23 - 02/04/23 [facility] [address] [place] [address]- Encounter Diagnosis Low back ache(Discharge Diagnosis) - 01/29/23 Attending Physician: Nat Francisco MD Referring Physician: Yaneth Connor MD Allergies, Adverse Reactions, Alerts Substance Reaction Severity Status codeine 1 Active Haldol Active 1reaction was Headache per RN 02/2016 admission Immunizations Given and Recorded Vaccine Date Status Refusal Reason [id number] bivalent booster vax 01/28/22 Recorded SARS-CoV-2 (COVID-19) [...] Gm, 1 Refills, Maintenance, 04/12/21 12:34:00 EST, [facility]/pharmacy #[id number], 172.5, cm, 11/23/20 10:06:00 EDT, Height Start Date: 04/12/21 Status: Ordered clindamycin 1% topical gel 1 application, Topically, 2 times a day, apply a thin film to affected area after washing, # 30 Gm,3 Refills, Maintenance, 06/02/22 16:25:00 EDT, [facility], [id number], Partial fill upon patient request if the prescription is for a schedule II opio... Start Date: 06/02/22 Status: Ordered fluconazole 150 mg oral tablet See Instructions, 1 tablet By mouth today, repeat in 72 hrs if sx persist, # 2 tablet, 0 Refills, Maintenance, 01/30/23 17:30:00 EST, Tablet, [facility]/pharmacy #[id number], Partial fill [...] 0 Refills, Maintenance, 01/28/23 12:32:00 EST, [facility], [id number], Partial fill upon patient request if the prescription is... Start Date: 01/28/23 Status: Ordered medroxyPROGESTERone 10 mg oral tablet 1, tablet, By Mouth, Daily, # 10 tablet, Refills 0, Maintenance, 05/08/22 8:02:00 EST, Route to Pharmacy Electronically, [facility], 172.5, cm, 04/24/22 16:36:00 EST, Height Start Date: 05/08/22 Stop Date: 05/18/22 Status: Ordered MetFORMIN (Eqv-Glucophage XR) 500 mg oral tablet, extended release 1 tablet = 500 mg, By Mouth, Daily, # 90 tablet, 0 Refills, Maintenance, 01/30/23 9:36:00 EST, [id number], Partial fill upon patient request if the prescription is for a schedule II opioid drug., 172.5, cm, 01/28/23 12:10:00 EST, Height Start Date: 01/30/23 Status: Ordered MetFORMIN (Eqv-Glucophage XR) 500 mg oral tablet, extended release 1 tablet = 500 mg, By Mouth, Daily, with largest meal of the day, # 90 tablet, 1 Refills, Maintenance, 05/13/22 12:06:00 EST, [facility]/pharmacy #[id number], Partial fill [...] Pre-diabetes Confirmed Active Severe obesity Confirmed Active Diagnosis Diagnosis Type Effective Dates Health Status inical Service Informant Low back ache Discharge Diagnosis 01/29/23 Vital Signs Most recent to oldest [Reference Range]: 1 Height 172.5 cm (01/28/23 12:10 PM) Oxygen Saturation [94-100 %] 99 % (01/28/23 12:10 PM) Pulse Rate [55-90 bpm] 88 bpm (01/28/23 12:10 PM) Blood Pressure [90-138/55-84 mm Hg] 137/ 86mm Hg (01/28/23 12:10 PM) Respiratory Rate [16-30 br/min] 20 br/mi n (01/28/23 12:10 PM) Temperature [96.8-100.4 DegF] 98.3 DegF (01/28/23 12:10 PM) Mode of Delivery (Oxygen) Room air (01/28/23 12:10 PM) Blood pressure sites Arm, left (01/28/23 12:10 PM) Temperature Route Temporal (01/28/23 12:10 PM) Social History Social History Type Response Smoking Status Never (less than 100 in lifetime) entered on: 05/23/20 Sex Note * Umer Acevedo: PERFORM, SIGN, VERIFY Event Display: Patient Education/Instruction Authored Date: [id number] [facility] Clinical Summary Name ANASTASIA LANDRUM Age 32 Years 1990 PCP Yaneth Connor MD PCP Visit Date 01/28/2023 09:48:00 Additional Instructions: Scheduled Appointments?? Future Appointments ?*[facility],??[place],??[address] ?Phone:??--?Fax:??-- ?Appt. Date:??01/30/2023?9:30 AM ?Scheduled Provider:??Yaneth Connor MD ?*[facility]??[place],??[place],??[address] ?Phone:??--?Fax:??-- ?Appt. Date:??02/27/2023?7:50 AM ?Scheduled Provider:??Yaneth Connor MD Follow-Up Instructions ?? Diagnosis Medications: Please continue your medications until treatment [...] of the day. Refills: 1. Next Dose: Omeprazole (omeprazole 20 mg oral [...] Orders ?No future orders Vital Signs Height Weight BMI Blood Pressure / Temperature Pulse Rate Respiratory Rate 02 Sat Mode of Delivery / You can now view a summary of your hospital visit from the comfort of your home through a free online portal called [employer]Does. [employer] is a website that allows you to securely view your medical information including discharge summary, medications and follow-up visits. ??You can alsosend a secure electronic message to your doctor???s office to request appointments, renew medications or just ask a question. You can enroll at [email or web address] or register during your next office visit. [...] primary care provider, you may find a [facility] provider by calling [facility]) Link at [phone]. [facility], in keeping with [facility] guidance, no longer requires face masks for staff, patientsor visitors in most situations. Similar to time spent indoors at other locations, there is the chance that you were exposed to respiratory viruses during your time with us (such as flu or COVID-19).? If you develop symptoms concerning for a viral respiratory infection, please seek testing (and treatment if indicated) from your medical provider or home test kit. For information about the plan of care including goals and instructions for your diagnosis, please see the patient education orders section of this document. Patient Education Materials?? The content of this educational material or handout may have been modified, supplemented, or adapted from its original content and format to support your individualized medical care. Patient Care team information Care Team Personnel Name: Yaneth Connor MD Position: S Physician - Primary Care Member Role: PCP Address: Address: [address] [place] [address]- Care Team Related Persons Name: SHERI CONTRERAS Address: [address] [place] [address] Name: LUCY LANDRUM Address: home [address] [place] [address] Name: FREDDY WEAVER
--- OUTSIDE RECORDS SUMMARY | 2023-12-27 05:21 | XMS_ITS | Continuity of Care Document ---
Author Organization [facility] Address [address] [place] [address]- Care Team Providers Care Cardroom Manager Name Role Phone Geeta MITCHELL, Yaneth Primary Care Physician [place] [facility] Date(s): 09/01/22 - 10/03/[address] [address]- Attending Physician: Patricia Rutherford CNM Admitting Physician: Patricia Rutherford CNM Referring Physician: Yaneth Connor MD Allergies, Adverse Reactions, Alerts Substance Reaction Severity Status codeine 1 Active Haldol Active 1reaction was Headache per RN 02/2016 admission Immunizations Given and Recorded Vaccine Date Status Refusal Reason [id number] bivalent booster vax 01/28/22 Recorded SARS-CoV-2 (COVID-19) [...] Gm, 1 Refills, Maintenance, 04/12/21 12:34:00 EST, [facility]/pharmacy #[id number], 172.5, cm, 11/23/20 10:06:00 EDT, Height Start Date: 04/12/21 Status: Ordered clindamycin 1% topical gel 1 application, Topically, 2 times a day, apply a thin film to affected area after washing, # 30 Gm,3 Refills, Maintenance, 06/02/22 16:25:00 EDT, Gel, [facility]/pharmacy #[id number], Partial fill upon patient request if the prescription is for a schedule II opio... Start Date: 06/02/22 Status: Ordered medroxyPROGESTERone 10 mg oral tablet 1, tablet, By Mouth, Daily, # 10 tablet, Refills 0, Maintenance, 05/08/22 8:02:00 EST, Route to Pharmacy Electronically, [facility], 172.5, cm, 04/24/22 16:36:00 EST, Height Start Date: 05/08/22 Stop Date: 05/18/22 Status: Ordered MetFORMIN (Eqv-Glucophage XR) 500 mg oral tablet, extended release 1 tablet = 500 mg, By Mouth, Daily, with largest meal of the day, # 90 tablet, 1 Refills, Maintenance, 05/13/22 12:06:00 EST, [facility]/pharmacy #[id number], Partial fill upon patient request if the prescriptionis for a schedule II opioid drug., 172.5, cm, 05/13... Start Date: 05/13/22 Status: Ordered omeprazole 20 mg oral enteric coated capsule 1 capsule, By Mouth, Daily, # 30 capsule, 2 Refills, Maintenance, 05/03/22 7:41:00 EST, [facility] 737[facility], 172.5, cm, 04/24/22 16:36:00 EST, Height Start [...] 05/30/22 14:31:00 EST, Route to Pharmacy Electronically, [facility]/pharmacy #[id number], Partial fill upon patient requestif the prescription is for a schedule II opioid pili... Start Date: 05/30/22 Status: Ordered Vitamin D3 50,000 intl units oral capsule 1 capsule = 1,250 mcg, By Mouth, Every week, # 12 capsule, 0 Refills, Maintenance, 04/11/22 18:55:00 EST, Capsule, [facility]/pharmacy #[id number], Partial fill upon patient [...] Team Personnel Name: Yaneth Connor MD Position: [facility] Physician - Primary Care Member Role: PCP Address: Address: [address] [place] [address]- [place] Care Team Related Persons Name: SHERI CONTRERAS Address: home [address] [place] [address] Name: LUCY LANDRUM Address: [address] [place] [address] Name: FREDDY WEAVER
--- OUTSIDE RECORDS SUMMARY | 2023-12-27 05:21 | XMS_ITS | Continuity of Care Document ---
Author Organization [facility] Address [address] [place] [address]- Care Team Providers Care Guest Services Coordinator Name Role Phone Geeta MITCHELL, Yaneth Primary Care Physician Encounter [facility] Date(s): 01/28/23 - 02/27/23 [facility] [address] [place] [address]- Attending Physician: Terence Fajardo Admitting Physician: AdmTerence saleh Referring Physician: AdmtrTerence Allergies, Adverse Reactions, Alerts Substance Reaction Severity Status codeine 1 Active Haldol Active 1reaction was Headache per RN 02/2016 admission Immunizations Given and Recorded Vaccine Date Status Refusal Reason SARS-CoV-2(COVID-19)mRNA-LNP vac([id number]) 01/31/23 Recorded [id number] bivalent booster vax 01/28/22 Recorded SARS-CoV-2 (COVID-19) [...] Gm, 1 Refills, Maintenance, 04/12/21 12:34:00 EST, [facility]/pharmacy #[id number], 172.5, cm, 11/23/20 10:06:00 EDT, [...] 01/28/23 12:32:00 EST, Route to Pharmacy Electronically, [facility]/pharmacy #[id number], Partial f... Start Date: 01/28/23 Status: Ordered lidocaine 4% topical film 1 patch, Topically, 2 times a day, PRN Pain , Moderate, do not leave patch on for more than 8 hoursat a time, # 6 patch, 0 Refills, Maintenance, 01/28/23 12:32:00 EST, Film, [facility]/pharmacy #[id number], Partial fill upon patient request if the prescription is... Start Date: 01/28/23 Status: Ordered medroxyPROGESTERone 10 mg oral tablet 1, tablet, By Mouth, Daily, # 10 tablet, Refills 0, Maintenance, 05/08/22 8:02:00 EST, Route to Pharmacy Electronically, [facility] 62012, 172.5, cm, 04/24/22 16:36:00 EST, Height Start Date: 05/08/22 Stop Date: 05/18/22 Status: Ordered MetFORMIN (Eqv-Glucophage XR) 500 mg oral tablet, extended release 1 tablet = 500 mg, By Mouth, Daily, # 90 tablet, 0 Refills, Maintenance, 01/30/23 9:36:00 EST, [facility]/pharmacy #[id number], Partial fill upon patient request if the prescription is for a schedule II opioid drug., 172.5, cm, 01/28/23 12:10:00 EST, Height Start Date: 01/30/23 Status: Ordered MetFORMIN (Eqv-Glucophage XR) 500 mg oral tablet, extended release 1 tablet = 500 mg, By Mouth, Daily, with largest meal of the day, # 90 tablet, 1 Refills, Maintenance, 05/13/22 12:06:00 EST, [facility]/pharmacy #[id number], Partial fill upon patient request [...] 05/30/22 14:31:00 EST, Route to Pharmacy Electronically, [facility]/pharmacy #[id number], Partial fill upon patient requestif the prescription is for a schedule II opioid pili... Start Date: 05/30/22 Status: Ordered Vitamin D3 50,000 intl units oral capsule 1 capsule = 1,250 mcg, By Mouth, Every week, # 12 capsule, 0 Refills, Maintenance, 04/11/22 18:55:00 EST, Capsule, [facility]/pharmacy #[id number], Partial fill upon patient request [...] Primary Care Member Role: PCP Address: Address: [address] [place] [address]- Care Team Related Persons Name: SHERI CONTRERAS Address: home [address] [place] [address] Name: LUCY LANDRUM Address: [address] [place] [address] Name: FREDDY WEAVER
--- OUTSIDE RECORDS SUMMARY | 2023-12-27 05:21 | XMS_ITS | Continuity of Care Document ---
Author Organization [facility] [employer] [facility] Address [address], [address]t [place] [address]- Care Team Providers Care Senior Safety Management Consultant Name Role Phone Geeta MITCHELL, Yaneth Primary Care Physician Encounter [facility] Date(s): 03/13/23 - 05/21/23 [facility] [address], 4th [place] [address]- Attending Physician: Not on Staff, Attending MD Referring Physician: Yaneth Connor MD Allergies, Adverse Reactions, Alerts Substance Reaction Severity Status codeine 1 Active Haldol Active 1reaction was Headache per RN 02/2016 admission Immunizations Given and Recorded Vaccine Date Status Refusal Reason SARS-CoV-2(COVID-19)mRNA-LNP vac([id number]) 01/31/23 Recorded [id number] bivalent booster vax 01/28/22 Recorded SARS-CoV-2 (COVID-19) [...] 01/28/23 12:32:00 EST, Route to Pharmacy Electronically, [facility]/pharmacy #[id number], Partial f... Start Date: 01/28/23 Status: Ordered lidocaine 4% topical film 1 patch, Topically, 2 times a day, PRN Pain , Moderate, do not leave patch on for more than 8 hoursat a time, # 6 patch, 0 Refills, Maintenance, 01/28/23 12:32:00 EST, Film, [facility]/pharmacy #[id number], Partial fill upon patient request if the prescription is... Start Date: 01/28/23 Status: Ordered medroxyPROGESTERone 10 mg oral tablet 1, tablet, By Mouth, Daily, # 10 tablet, Refills 0, Maintenance, 05/08/22 8:02:00 EST, Route to [facility]acy Electronically, [facility], 172.5, cm, 04/24/22 16:36:00 EST, Height Start Date: 05/08/22 Stop Date: 05/18/22 Status: Ordered MetFORMIN (Eqv-Glucophage XR) 500 mg oral tablet, extended release 1 tablet, By Mouth, Daily, # 90 tablet, 0 Refills, Maintenance, 05/14/23 14:32:00 EST, [facility], 172.5, cm, 02/27/23 7:52:00 EST, Height Start Date: 05/14/23 Status: Ordered omeprazole 20 mg oral enteric coated capsule 1 capsule, By Mouth, Daily, # 90 capsule, 1 Refills, Maintenance, 01/30/23 9:36:00 EST, [facility]/pharmacy #[id number], 172.5, cm, 01/28/23 12:10:00 EST, Height [...] 05/30/22 14:31:00 EST, Route to Pharmacy Electronically, [facility]/pharmacy #[id number], Partial fill upon patient requestif the prescription is for a schedule II opioid pili... Start Date: 05/30/22 Status: Ordered Vitamin D3 50,000 intl units oral capsule 1 capsule = 1,250 mcg, By Mouth, Every week, # 12 capsule, 0 Refills, Maintenance, 04/11/22 18:55:00 EST, Capsule, [facility]/pharmacy #[id number], Partial fill upon [...] Team Personnel Name: Yaneth Connor MD Position: [facility] Physician - Primary Care Member Role: PCP Address: Address: [address] [place] [address]- Care Team Related Persons Name: SHERI CONTRERAS Address: [address] [place] [address] Name: LUCY LANDRUM Address: [address] [place] [address] Name: FREDDY WEAVER
--- OUTSIDE RECORDS SUMMARY | 2023-12-27 05:21 | XMS_ITS | Continuity of Care Document ---
Author Organization [facility] ter Address [address] [place] [id number]- Care Team Providers Care Towel Hemmer Name Role Phone Yaneth Connor MD Primary Care Physician [place] [facility] [place] 06[place]12[place]23 - 06/12/[address] [address]- Discharge Disposition: A-D/C Home Attending Physician: Raman Buckner MD Admitting Physician: Raman Buckner MD Referring Physician: Not on Staff, Referring MD Allergies, Adverse Reactions, Alerts Substance Reaction Severity Status codeine 1 Active Haldol Active 1reaction was Headache per RN 02/2016 admission Immunizations Given and Recorded Vaccine Date Status Refusal Reason SARS-CoV-2(COVID-19)mRNA-LNP vac([id number]) 01/31/23 Recorded [id number] bivalent booster vax 01/28/22 Recorded SARS-CoV-2 (COVID-19) [...] 01/28/23 12:32:00 EST, Route to Pharmacy Electronically, [facility]/pharmacy #[id number], Partial f... Start Date: 01/28/23 Status: Ordered lidocaine 4% topical film 1 patch, Topically, 2 times a day, PRN Pain , Moderate, do not leave patch on for more than 8 hoursat a time, # 6 patch, 0 Refills, Maintenance, 01/28/23 12:32:00 EST, Film, [facility]/pharmacy #[id number], Partial fill upon patient request if the prescription is... Start Date: 01/28/23 Status: Ordered medroxyPROGESTERone 10 mg oral tablet 1, tablet, By Mouth, Daily, # 10 tablet, Refills 0, Maintenance, 05/08/22 8:02:00 EST, Route to Pharmacy Electronically, [id number], 172.5, cm, 04/24/22 16:36:00 EST, Height Start Date: 05/08/22 Stop Date: 05/18/22 Status: Ordered MetFORMIN (Eqv-Glucophage XR) 500 mg oral tablet, extended release 1 tablet, By Mouth, Daily, # 90 tablet, 0 Refills, Maintenance, 05/14/23 14:32:00 EST, [id number], 172.5, cm, 02/27/23 7:52:00 EST, Height Start [...] 0 Refills, Maintenance, 06/11/23 7:47:00 EDT, Tablet, [facility]/pharmacy #[id number], Partial fill upon patient request if the prescription is for a schedule II opioid drug., 170, cm, 05/29/23 0:46:00 EST, He... Start Date: 06/11/23 Status: Ordered prochlorperazine 10 mg oral tablet 1 tablet = 10 mg, By Mouth, 3 times a day, PRN Nausea & Vomiting, for 7 days, # 21 tablet, 0 Refills, Acute 06/19/23 21:27:00 EDT, 06/12/23 21:27:00 EDT, Tablet, [facility]/pharmacy #[id number], Partial fill upon patient request if the prescription is for a schedu... Start Date: 06/12/23 Stop Date: 06/19/23 Status: Ordered Seroquel 400 mg, By Mouth, [...] 05/30/22 14:31:00 EST, Route to Pharmacy Electronically, [facility]/pharmacy #[id number], Partial fill upon patient requestif the prescription is for a schedule II opioid pili... Start Date: 05/30/22 Status: Ordered Vitamin D3 50,000 intl units oral capsule 1 capsule = 1,250 mcg, By Mouth, Every week, # 12 capsule, 0 Refills, Maintenance, 04/11/22 18:55:00 EST, Capsule, [facility]/pharmacy #[id number], Partial fill upon patient request [...] [Reference Range]: 1 2 Height 170 cm (06/12/23 5:38 PM) 170 cm (06/12/23 4:38 PM) Weight 114 kg (06/12/23 5:38 PM) 114 kg (06/12/23 4:38 PM) Oxygen Saturation [94-100 %] 100 % (06/12/23 9:18 PM) 100 % (06/12/23 4:38 PM) Pulse Rate [55-90 bpm] 113 bpm *H* (06/12/23 9:18 PM) 107 bpm *H* (06/12/23 4:38 PM) Body Mass Index [18.5-24.99 kg/m2] 39.45 kg/m2 *>HHI* (06/12/23 4:38 PM) Blood Pressure [90-138/55-84 mm Hg] 134/ 89mm Hg (06/12/23 9:18 PM) 136/91mm Hg (06/12/23 4:38 PM) Respiratory Rate [16-30 br/min] 14 br/mi n *L* (06/12/23 9:18 PM) 18 br/min (06/12/23 4:38 PM) Temperature [96.8-100.4 DegF] 98.2 DegF (06/12/23 4:38 PM) Mode of Delivery (Oxygen) Room air (06/12/23 9:18 PM) Room air (06/12/23 4:38 PM) Blood pressure sites Arm, right (06/12/23 9:18 PM) Arm, left (06/12/23 4:38 PM) Temperature Route Oral (06/12/23 4:38 PM) Dry Weight 114 kg (06/12/23 5:38 PM) 114 kg (06/12/23 4:38 PM) Weight Obtained Via Patient/family state d (06/12/23 4:38 PM) Dry Weight Obtained Via Patient/family s tated (06/12/23 4:38 PM) Social History Social History Type Response Smoking Status Never (less than 100 in lifetime) entered on: 05/23/20 Sex Patient Care team information Care Team Personnel Name: Yaneth Connor MD Position: S Physician - Primary Care Member Role: PCP Address: Address: [address] [place] [phone]- Care Team Related Persons Name: SHERI CONTRERAS Address: home [address] [place] [address] Name: LUCY LANDRUM Address: [address] [place] [address] Name: FREDDY WEAVER
--- OUTSIDE RECORDS SUMMARY | 2023-12-27 05:21 | XMS_ITS | Continuity of Care Document ---
Author Organization [facility] Address [address] [place] [address]- Care Team Providers Care Water Quality Manager Name Role Phone Yaneth Connor MD Primary Care Physician Encounter [facility] [place] Date(s): 07/16/23 - 08/15/23 [facility] [address] [place] [id number]- Attending Physician: AdmTerence saleh Admitting Physician: AdmtrTerence Referring Physician: Admtr, Ar8 Allergies, Adverse Reactions, Alerts Substance Reaction Severity Status codeine 1 Active Haldol Active 1reaction was Headache per RN 02/2016 admission Immunizations Given and Recorded Vaccine Date Status Refusal Reason SARS-CoV-2(COVID-19)mRNA-LNP vac([id number]) 01/31/23 Recorded [id number] bivalent booster vax 01/28/22 Recorded SARS-CoV-2 (COVID-19) [...] 05/08/22 8:02:00 EST, Route to Pharmacy Electronically, [id number], 172.5, cm, 04/24/22 16:36:00 EST, Height Start Date: 05/08/22 Stop Date: 05/18/22 Status: Ordered MetFORMIN (Eqv-Glucophage XR) 500 mg oral tablet, extended release 1 tablet, By Mouth, Daily, # 90 tablet, 0 Refills, Maintenance, 05/14/23 14:32:00 EST, [id number], 172.5, cm, 02/27/23 7:52:00 EST, Height Start [...] 0 Refills, Maintenance, 06/11/23 7:47:00 EDT, Tablet, [facility]/pharmacy #[id number], Partial fill upon patient request if the prescription is for a schedule II opioid drug., 170, cm, 05/29/23 0:46:00 EST, He... Start Date: 06/11/23 Status: Ordered prochlorperazine 10 mg oral tablet 1 tablet = 10 mg, By Mouth, 3 times a day, as needed emesis, # 30 tablet, 0 Refills, Maintenance, 06/24/23 9:04:00 EDT, Tablet, [facility]/pharmacy #[id number], Partial fill [...] 07/28/23 7:49:00 EDT, Route to Pharmacy Electronically, [id number], 170, cm, 06/24/23 9:05:00 EDT, Height, 114, [...] Team Personnel Name: Geeta MITCHELL, Yaneth Position: [facility] Physician - Primary Care Member Role: PCP Address: Address: [address] [place] [id number]- Care Team Related Persons Name: SHERI CONTRERAS Address: home [address] [place] [address] Name: LUCY LANDRUM Address: [address] [place] [address] Name: FREDDY WEAVER
[2023-12-27 05:33] LABS: MANUAL DIFF FLAG NO
--- NOTE | 2023-12-27 05:33 | PC.NURSE ---
Pt BIBA for N/V x 3 days, reports hx cyclic vomiting increased by anxiety. Pt very anxious requesting to see Blood work obtained, IV line placed. Pt states she wants to leave and proceeded to ambulate towards exit doors, T/W attempted to take IV out, Pt refused, security involved Pt states you cant touch me, Im not here for crisis , Pt redirected back to room.
[2023-12-27 05:34] LABS: Basophils Percent Auto 0.3 % (0-2); Hematocrit 38.8 % (37.0-47.0); Hemoglobin 12.8 g/dl (12.0-16.0); Imm Gran Pct Auto 0.7 % (0.0-0.4); Lymphocytes Absolute Auto 2.3 X10*3/uL (1.2-4.9); Lymphocytes Percent Auto 17.4 % (20-40); Mean Corpuscular Hemoglobin 26.2 pg (27.0-33.0); Mean Corpuscular Volume 79.5 fL (80.0-98.0); Mean Platelet Volume 8.9 fL (9.4-12.3); Monocytes Absolute Auto 0.6 X10*3/uL (0.1-1.2); Monocytes Percent Auto 4.4 % (2-11); Neutrophils Absolute Auto 10.3 x10*3/uL (2.0-8.3); Neutrophils Percent Auto 77.2 % (45-73); Platelet Count 317 X10*3/uL (160-400); Red Blood Count 4.88 X10*6/uL (4.20-5.50); Red Cell Distribution Width 15.9 % (11.0-16.0); White Blood Count 13.4 X10*3/uL (4.8-10.8)
--- NOTE | 2023-12-27 05:35 | ED_ITS ---
HPI - General Adult General Chief complaint: General Medical Stated complaint: sickle cell crisis Time Seen by Provider: 12/27/23 05:35 Source: patient Mode of arrival: EMS Limitations: no limitations History of Present Illness ED Provider: Dr. Marko Encinas HPI narrative: 33-year-old female with a history of cyclic vomiting syndrome, marijuana use disorder, cocaine use disorder, PTSD, pre diabetes who presents emergency department for evaluation of nausea, vomiting and abdominal pain x3 days. The patient states that she was not been able to eat or drink over the past 3 days. She states that she was also having moderate to severe abdominal pain and she points to her epigastric area when asked to localize his pain. Patient states that she does have severe anxiety as well and she was not been able to take her antianxiety medications secondary to her vomiting. She denied fever but did have chills. She denied chest pain, shortness of breath, frequency, urgency or dysuria. Related Data Home Medications ?Medication ?Instructions ?Recorded ?Confirmed lorazepam 0.5 mg tablet 0.5 mg PO DAILY PRN anxiety 08/11/22 06/02/23 metformin 500 mg tablet,extended 500 mg PO DAILY 08/11/22 06/02/23 release 24 hr omeprazole 20 mg capsule,delayed 20 mg PO DAILY@0630 PRN Heartburn 08/11/22 06/02/23 release valacyclovir 500 mg tablet 500 mg PO DAILY 08/11/22 06/02/23 quetiapine 300 mg tablet 600 mg PO BEDTIME 06/02/23 06/02/23 Previous Rx's ?Medication ?Instructions ?Recorded ondansetron 4 mg disintegrating 4 mg translingual BID PRN Nausea 08/14/22 tablet And Vomiting 7 days #14 tabs trazodone 50 mg tablet 50 mg PO BEDTIME PRN insomnia 7 08/15/22 days #7 tabs ondansetron 4 mg disintegrating 4 mg PO Q6-8H PRN nausea and 06/03/23 tablet vomiting #14 tabs ondansetron HCl 8 mg tablet 8 mg PO Q8H PRN nausea and 12/27/23 vomiting #20 tabs Allergies Allergy/AdvReac Type Severity Reaction Status Date / Time codeine [CODEINE] Allergy Unknown UNKNOWN Verified 12/27/23 05:03 acetaminophen [From TYLENOL] AdvReac Mild HEADACHES Verified 12/27/23 05:03 From HALDOL Allergy Unknown Anaphylaxis Uncoded 10/07/21 03:09 Review of Systems 2 Review of Systems: Yes all other systems are reviewed and are negative [facility] Past Medical History [facility] Narrative: Social history: She he denies tobacco use. She does smoke marijuana multiple times a day. She denies alcohol use. Medical History Suicidal ideation Anxiety Depression PTSD (post-traumatic stress disorder) Bipolar 1 disorder Surgical History S/P cholecystectomy Social History Social History Household Members: None Housing: Unknown / Unable to assess Alcohol intake: never Patient Tobacco Use Status: Current someday Tobacco user Smoked in Last 30 Days: No Use of substances other than those prescribed or required for medical reasons: Yes Substance Use Type: Marijuana Advance Directives: No Advance Directives Information Provided: No Patient : No service: No Sexual orientation: Straight/Heterosexual Physical Exam ED Vital Signs: Vital Signs - 24 hr 12/27/23 04:46 Temperature 98.4 F Pulse Rate 105 H Respiratory Rate 18 Blood Pressure 151/102 H Pulse Oximetry 99 Oxygen Delivery Method Room Air BMI result Body Mass Index 49.9 Vital signs revealed an elevated heart rate of 105 and elevated blood pressure of 151/102. Exam: General: Awake, alert , anxious, multiple episodes of dry heaving, weight 136.1 kg, elevated BMI 49.9 kg per m2. Head: Normocephalic, atraumatic EENT: PERRL, Lids normal, sclera normal, conjunctiva normal, nose normal , ears normal, throat without erythema or exudates Neck: Supple, no adenopathy Lung: breath sounds symmetric, no wheezing, rales or rhonchi Chest: symmetric movement, nontender Heart: regular rate and rhythm, normal S1, S2 no murmurs or rubs Abdomen: soft, obese, moderate epigastric tenderness, nondistended, normal bowel sounds Back: no vertebral tenderness, no CVAT Extremities: no deformities, moves all extremities symmetrically Neuro: Awake, alert, oriented, normal speech, cranial nerves intact, moves all extremities symmetrically Medications Administered Discontinued Medications Generic Name Dose Route Start Last Admin Trade Name Freq PRN Reason Stop Dose Admin Diphenhydramine HCl 50 mg 12/27/23 05:42 12/27/23 05:48 Diphenhydramine Hcl 50 Mg/Ml Vial IVPUSH 12/27/23 05:43 50 mg ONCE STA Administration Droperidol 1.25 mg 12/27/23 05:42 12/27/23 05:48 Droperidol 5 Mg/2 Ml Vial IVPUSH 12/27/23 05:43 1.25 mg ONCE ONE Administration Sodium Chloride 1,000 mls @ 999 mls/hr 12/27/23 05:42 12/27/23 05:47 Ns IV 12/27/23 06:42 999 mls/hr .Q1H1M STA Administration Lorazepam 1 mg 12/27/23 05:42 12/27/23 05:48 Lorazepam 2 Mg/Ml Vial IVPUSH 12/27/23 05:43 1 mg STAT STA Administration Medical Decision Making Medical Decision Making MDM Narrative: 33-year-old female with a history of cyclic vomiting syndrome, marijuana use disorder, cocaine use disorder, PTSD, prediabetes who presents emergency department for evaluation of nausea, vomiting and abdominal pain x3 days associated with midepigastric pain. Patient continues to smoke marijuana daily. She was also very anxious and she was not been able to take her antianxiety medications secondary to vomiting. Vital signs revealed an elevated heart rate. Exam revealed epigastric tenderness and the patient was dry heaving multiple times while she has been here in the emergency department. Differential diagnosis: ?Includes but is not limited to gastritis, appendicitis, pancreatitis, esophagitis, cyclic vomiting syndrome, anemia, electrolyte abnormalities Course: 07:27 My interpretation patient's laboratory evaluation is as follows: Elevated WBC 06813. Elevated glucose 146. Lipase was normal. LFTs were normal. Patient was treated with lorazepam 1 mg IV, droperidol 1.25 mg IV, diphenhydramine 50 mg IV, normal saline IV x2 L. patient had significant improvement with the above treatment. She was able to drink fluid prior to discharge. Patient was given a prescription for ondansetron ODT 8 mg, 1 sublingual every 8 hours as needed for nausea and vomiting. She was given printed and verbal instructions and discharged home. She was strongly advised to get help with her marijuana use disorder since this may be the cause of her cyclic vomiting syndrome. Admission/Observation Consideration of admission/observation: Escalation of care including admission/observation considered (Yes) Lab Data MDM Lab Attestation statement: I reviewed the patient's lab results. 12/27/23 05:25 12/27/23 05:25 Labs: Lab Results 12/27/23 Range/Units 05:25 WBC 13.4 H (4.8-10.8) X10*3/uL RBC 4.88 (4.20-5.50) X10*6/uL Hgb 12.8 (12.0-16.0) g/dl Hct 38.8 (37.0-47.0) % MCV 79.5 L (80.0-98.0) fL MCH 26.2 L (27.0-33.0) pg MCHC 33.0 (31.0-35.0) g/dl RDW 15.9 (11.0-16.0) % Plt Count 317 (160-400) X10*3/uL MPV 8.9 L (9.4-12.3) fL Immature Gran % (Auto) 0.7 H (0.0-0.4) % Neut % (Auto) 77.2 H (45-73) % Lymph % (Auto) 17.4 L (20-40) % Bell % (Auto) 4.4 (2-11) % Eos % (Auto) 0.0 (0-4) % Baso % (Auto) 0.3 (0-2) % Lymph # (Auto) 2.3 (1.2-4.9) X10*3/uL Bell # (Auto) 0.6 (0.1-1.2) X10*3/uL Eos # (Auto) 0.0 (0.0-0.4) X10*3/uL Baso # (Auto) 0.0 (0.0-0.2) X10*3/uL Abs Immat Gran (auto) 0.10 H (0.00-0.03) X10*3/uL Absolute Neuts (auto) 10.3 H (2.0-8.3) x10*3/uL Absolute Nucleated RBC 0.000 (0.0-0.012) X10*3/uL Nucleated RBC % (auto) 0.0 (0.0-0.2) /100WBC Sodium 143 (135-145) mmol/L Potassium 4.1 (3.3-5.1) mmol/L Chloride 108 (96-108) mmol/L Carbon Dioxide 23 (22-29) mmol/L Anion Gap 16 (12-20) BUN 8 L (9-16) mg/dL Creatinine 0.87 (0.5-1.4) mg/dL Estim Creat Clear Calc 131.1 Estimated GFR > 60 Random Glucose 146 H (60-115) mg/dL Calcium 9.9 D (8.4-10.2) mg/dL Total Bilirubin 0.5 (0.0-1.0) mg/dL AST 16 (5-31) U/L ALT 18 (0-31) U/L Alkaline Phosphatase 78 (39-117) U/L Total Protein 8.3 H (6.5-8.0) g/dL Albumin 4.6 (3.5-5.0) g/dL Lipase 19 (8-78) U/L Beta HCG, Quant < 2 mIU/mL Ethyl Alcohol < 10 mg/dL Prescription Management I considered prescription management with: Other (Antiemetics) Chronic Conditions Patient?s care impacted by: Diabetes (Pre diabetes) Discharge Plan Discharge Clinical Impression: Cyclic vomiting syndrome, Cannabis use disorder Abdominal pain Qualifiers: Abdominal location: epigastric Qualified Code(s): R10.13 - Epigastric pain Patient Disposition: Home, Self-Care Instructions: Cyclic Vomiting Syndrome (ED) Additional Instructions: Your persistent nausea, vomiting and abdominal pain is called cyclic vomiting syndrome and is most likely caused by your daily marijuana use. ?Smoking marijuana multiple times a day can lead to cannabis (marijuana) hyperemesis syndrome which is a form of cyclic vomiting syndrome. Smoking marijuana daily changes your brain chemistries and makes you have nausea, vomiting abdominal pain. The treatment is to stop smoking marijuana for 3-6 months in your symptoms will improve. Follow-up with your doctor in 2 days. Please return to the emergency department if your symptoms get worse or if you develop any symptoms that are concerning to you. Take Zofran ODT 8 mg pills, 1 pill dissolved in your mouth every 8 hours as needed for nausea and vomiting. This is a higher dose of Zofran then you have been on in the past. Follow-up with your doctor in 2 days. Please return to the emergency department if your symptoms get worse or if you develop any symptoms that are concerning to you. Prescriptions: New ondansetron HCl 8 mg tablet 8 mg PO Q8H PRN (Reason: nausea and vomiting) Qty: 20 0RF No Action valacyclovir 500 mg tablet 500 mg PO DAILY lorazepam 0.5 mg tablet 0.5 mg PO DAILY PRN (Reason: anxiety) omeprazole 20 mg capsule,delayed release(DR/EC) 20 mg PO DAILY@0630 PRN (Reason: Heartburn) metformin 500 mg tablet extended release 24 hr 500 mg PO DAILY ondansetron 4 mg Tablet,Disintegrating 4 mg translingual BID PRN (Reason: Nausea And Vomiting) 7 Days Qty: 14 0RF trazodone 50 mg tablet 50 mg PO BEDTIME PRN (Reason: insomnia) 7 Days Qty: 7 0RF quetiapine 300 mg tablet 600 mg PO BEDTIME ondansetron 4 mg tablet,disintegrating 4 mg PO Q6-8H PRN (Reason: nausea and vomiting) Qty: 14 0RF Print Language: Northern Irish
[2023-12-27] MEDS: 0.9 % Sodium Chloride 1,000 ML 999 ML IV (05:47)
[2023-12-27] MEDS: diphenhydrAMINE HCL 50 MG/ML VIAL IVPUSH (05:48)
[2023-12-27] MEDS: LORazepam 2 MG/ML VIAL 1 MG IVPUSH (05:48)
[2023-12-27] MEDS: droPERidol 5 MG/2 ML VIAL 1.25 MG IVPUSH (05:48)
[2023-12-27 05:56] LABS: Alanine Aminotransferase 18 U/L (0-31); Albumin Level 4.6 g/dL (3.5-5.0); Alkaline Phosphatase 78 U/L (39-117); Anion Gap 16 (12-20); Aspartate Amino Transferase 16 U/L (5-31); Bilirubin Total 0.5 mg/dL (0.0-1.0); Blood Urea Nitrogen 8 mg/dL (9-16); Calcium 9.9 mg/dL (8.4-10.2); Carbon Dioxide 23 mmol/L (22-29); Chloride 108 mmol/L (96-108); Creatinine Clr Calc Pharmacy 131.1; Estimated Glomerular Filt Rate > 60; Ethanol < 10 mg/dL; Glucose Random 146 mg/dL (60-115); HCG Quantitative < 2 mIU/mL; Lipase 19 U/L (8-78); Potassium 4.1 mmol/L (3.3-5.1); Sodium 143 mmol/L (135-145); Total Protein 8.3 g/dL (6.5-8.0)
[2023-12-27 07:31] VITALS: BP 147/82; PULSE 98; RESP 16; TEMP 36.8; O2SAT 99
== END 2023-12-27 07:33 | disposition home or self-care (01) ==
PROVIDERS: Emergency Provider Emergency Medicine Emergency Medical Services
DX: R11.15 Cyclical vomiting syndrome unrelated to migraine (principal); R11.2 Nausea with vomiting, unspecified; F14.90 Cocaine use, unspecified, uncomplicated; F41.9 Anxiety disorder, unspecified; R10.13 Epigastric pain; R10.2 Pelvic and perineal pain; Z51.81 Encounter for therapeutic drug level monitoring; Z79.899 Other long term (current) drug therapy
CPT/HCPCS: 36415; 80053; 80307; 83690; 84702; 85025; 96361; 96374; 96375; 99284; J1200; J1790; J2060

== ENCOUNTER 2023-12-28 11:17 | Emergency (ER) | payer OTHER, SELFPAY ==
[2023-12-28 11:20] VITALS: BP 141/93; PULSE 100
--- NOTE | 2023-12-28 11:34 | PC.NURSE ---
brought to by EMS pt got off the stretcher and stated that she is leaving
--- NOTE | 2023-12-28 11:59 | ED.ANXIETY ---
HPI - Anxiety General Stated Complaint: ANXIETY,VOMITING X4D PER EMS-Crisis Related Data Home Medications ?Medication ?Instructions ?Recorded ?Confirmed lorazepam 0.5 mg tablet 0.5 mg PO DAILY PRN anxiety 08/11/22 06/02/23 metformin 500 mg tablet,extended 500 mg PO DAILY 08/11/22 06/02/23 release 24 hr omeprazole 20 mg capsule,delayed 20 mg PO DAILY@0630 PRN Heartburn 08/11/22 06/02/23 release valacyclovir 500 mg tablet 500 mg PO DAILY 08/11/22 06/02/23 quetiapine 300 mg tablet 600 mg PO BEDTIME 06/02/23 06/02/23 Previous Rx's ?Medication ?Instructions ?Recorded ondansetron 4 mg disintegrating 4 mg translingual BID PRN Nausea 08/14/22 tablet And Vomiting 7 days #14 tabs trazodone 50 mg tablet 50 mg PO BEDTIME PRN insomnia 7 08/15/22 days #7 tabs ondansetron 4 mg disintegrating 4 mg PO Q6-8H PRN nausea and 06/03/23 tablet vomiting #14 tabs ondansetron HCl 8 mg tablet 8 mg PO Q8H PRN nausea and 12/27/23 vomiting #20 tabs Allergies Allergy/AdvReac Type Severity Reaction Status Date / Time codeine [CODEINE] Allergy Unknown UNKNOWN Verified 12/27/23 05:03 acetaminophen [From TYLENOL] AdvReac Mild HEADACHES Verified 12/27/23 05:03 From HALDOL Allergy Unknown Anaphylaxis Uncoded 10/07/21 03:09 PMFSH Past Medical History Medical History Suicidal ideation Anxiety Depression PTSD (post-traumatic stress disorder) Bipolar 1 disorder Surgical History S/P cholecystectomy Social History Social History Household Members: None Housing: Unknown / Unable to assess Alcohol intake: never Patient Tobacco Use Status: Current someday Tobacco user Substance Use Type: Marijuana Advance Directives: No Advance Directives Information Provided: No service: No Sexual orientation: Straight/Heterosexual Course Course Course Narrative: This is a Rapid Medical Examination (RME) performed by Elise Reynaga PA-C in triage. Full HPI, ROS, assessment and treatment plan per primary provider in the Main ED. 33 yo female presenting to the ER from home via EMS for evaluation of anxiety and vomiting. seen here yesterday for cyclical vomiting and she states she was told to come back if she wasnt better. reports severe anxiety, unable to tolerate PO. she is laying on the floor in the waiting room, stating she doesnt know why she cant eat. she is frustrated. she got up independently off of the floor and walked outside. Plan: labs, medicate and reassess Reevaluation(s) Reevaluation #1: patient eloped prior to completing treatment Discharge Plan Discharge Clinical Impression: Anxiety Patient Disposition: Left W/O Completing Treatment Prescriptions: No Action ondansetron HCl 8 mg tablet 8 mg PO Q8H PRN (Reason: nausea and vomiting) Qty: 20 0RF valacyclovir 500 mg tablet 500 mg PO DAILY lorazepam 0.5 mg tablet 0.5 mg PO DAILY PRN (Reason: anxiety) omeprazole 20 mg capsule,delayed release(DR/EC) 20 mg PO DAILY@0630 PRN (Reason: Heartburn) metformin 500 mg tablet extended release 24 hr 500 mg PO DAILY ondansetron 4 mg Tablet,Disintegrating 4 mg translingual BID PRN (Reason: Nausea And Vomiting) 7 Days Qty: 14 0RF trazodone 50 mg tablet 50 mg PO BEDTIME PRN (Reason: insomnia) 7 Days Qty: 7 0RF quetiapine 300 mg tablet 600 mg PO BEDTIME ondansetron 4 mg tablet,disintegrating 4 mg PO Q6-8H PRN (Reason: nausea and vomiting) Qty: 14 0RF Discharge Date/Time: 12/28/23 13:35
--- OUTSIDE RECORDS SUMMARY | 2023-12-28 13:24 | XMS_ITS | Continuity of Care Document ---
Author Organization [facility] Address [address] [place] [id number]- Care Team Providers Care Biological Science Technician Name Role Phone Geeta MITCHELL, Yaneth Primary Care Physician [place] [facility] [place] - 12/27/[address] [address]- Attending Physician: Admtr, Ar8 Allergies, Adverse Reactions, Alerts Substance Reaction Severity Status codeine 1 Active Haldol Active 1reaction was Headache per RN 02/2016 admission Immunizations Given and Recorded Vaccine Date Status Refusal Reason SARS-CoV-2(COVID-19)mRNA-LNP vac([id number]) 01/31/23 Recorded [id number] bivalent booster vax 01/28/22 Recorded SARS-CoV-2 (COVID-19) [...] 12:32:00 EST, Route to Pharmacy Electronically, [facility]/pharmacy #[id number], Partial f... Start Date: 01/28/23 Status: Ordered lidocaine 4% topical film 1 patch, Topically, 2 times a day, PRN Pain , Moderate, do not leave patch on for more than 8 hoursat a time, # 6 patch, 0 Refills, Maintenance, 01/28/23 12:32:00 EST, Film, [facility]/pharmacy #[id number], Partial fill upon patient request if the prescription is... Start Date: 01/28/23 Status: Ordered medroxyPROGESTERone 10 mg oral tablet 1, tablet, By Mouth, Daily, # 10 tablet, Refills 0, Maintenance, 05/08/22 8:02:00 EST, Route to Pharmacy Electronically, [id number], 172.5, cm, 04/24/22 16:36:00 EST, Height Start Date: 05/08/22 Stop Date: 05/18/22 Status: Ordered MetFORMIN (Eqv-Glucophage XR) 500 mg oral tablet, extended release 1 tablet, By Mouth, Daily, # 90 tablet, 0 Refills, Maintenance, 09/28/23 7:47:00 EDT, [id number], 170, cm, 06/24/23 9:05:00 EDT, Height, 114, kg, 06/12/23 17:38:00 EDT, Dry Weight Start Date: 09/28/23 Status: Ordered omeprazole 20 mg oral enteric coated capsule 1 capsule, By Mouth, Daily, # 90 capsule, 1 Refills, Maintenance, 09/07/23 8:00:00 EDT, [id number], 170, cm, 06/24/23 9:05:00 EDT, Height, 114, kg, 06/12/23 17:38:00 EDT, Dry Weight Start Date: 09/07/23 Status: Ordered ondansetron 4 mg oral tablet 1 tablet = 4 mg, By Mouth, Every 8 hours, # 12 tablet, 0 Refills, Maintenance, 06/11/23 7:47:00 EDT, Tablet, [facility]/pharmacy #[id number], Partial fill upon patient request if the prescription is for a schedule II opioid drug., 170, cm, 05/29/23 0:46:00 EST, He... Start Date: 06/11/23 Status: Ordered prochlorperazine 10 mg oral tablet 1 tablet = 10 mg, By Mouth, 3 times a day, as needed emesis, # 30 tablet, 0 Refills, Maintenance, 06/24/23 9:04:00 EDT, Tablet, [facility]/pharmacy #[id number], Partial fill upon patient request if [...] 02/25/16 13:57:50 Start Date: 02/25/16 Status: Ordered SEROquel 300 mg oral tablet 2 tablets, By Mouth, Daily at bedtime, # 60 each, 1 Refills, Maintenance, 12/16/23 8:25:00 EDT, Tablet, [facility]/pharmacy #[id number], Partial fill upon patient request if the prescription is for a schedule II opioid drug., 170, cm, 06/24/23 9:05:00 EDT, Height,... Start Date: 12/16/23 Status: Ordered traZODone 50 mg oral tablet [...] 07/28/23 7:49:00 EDT, Route to Pharmacy Electronically, [id number], 170, cm, 06/24/23 9:05:00 EDT, Height, 114, [...] Team Personnel Name: Yaneth Connor MD Position: [facility] Physician - Primary Care Member Role: PCP Address: Address: [address] [place] [id number]- Care Team Related Persons Name: SHERI CONTRERAS Address: [address] [place] [address] Name: LUCY LANDRUM Address: [address] [place] [address] Name: FREDDY WEAVER
--- OUTSIDE RECORDS SUMMARY | 2023-12-28 13:26 | XMS_ITS | Continuity of Care Document ---
Author Organization [facility] Address [address] [place] [id number]- Care Team Providers Care Veneer Layer Name Role Phone Geeta MITCHELL, Yaneth Primary Care Physician Encounter [facility] [place] Date(s): 11/10/23 - 12/27/[address] [address]- Attending Physician: Not on Staff, Attending MD Allergies, Adverse Reactions, Alerts Substance Reaction Severity Status codeine 1 Active Haldol Active 1reaction was Headache per RN 02/2016 admission Immunizations Given and Recorded Vaccine Date Status Refusal Reason SARS-CoV-2(COVID-19)mRNA-LNP vac([id number]) 01/31/23 Recorded [id number] bivalent booster vax 01/28/22 Recorded SARS-CoV-2 (COVID-19) [...] 01/28/23 12:32:00 EST, Route to Pharmacy Electronically, [facility]/pharmacy #[id number], Partial f... Start Date: 01/28/23 Status: Ordered lidocaine 4% topical film 1 patch, Topically, 2 times a day, PRN Pain , Moderate, do not leave patch on for more than 8 hoursat a time, # 6 patch, 0 Refills, Maintenance, 01/28/23 12:32:00 EST, Film, [facility]/pharmacy #[id number], Partial fill upon patient request if the prescription is... Start Date: 01/28/23 Status: Ordered medroxyPROGESTERone 10 mg oral tablet 1, tablet, By Mouth, Daily, # 10 tablet, Refills 0, Maintenance, 05/08/22 8:02:00 EST, Route to Pharmacy Electronically, [id number], 172.5, cm, 04/24/22 16:36:00 EST, Height Start Date: 05/08/22 Stop Date: 05/18/22 Status: Ordered MetFORMIN (Eqv-Glucophage XR) 500 mg oral tablet, extended release 1 tablet, By Mouth, Daily, # 90 tablet, 0 Refills, Maintenance, 09/28/23 7:47:00 EDT, [facility], 170, cm, 06/24/23 9:05:00 EDT, Height, 114, kg, 06/12/23 17:38:00 EDT, Dry Weight Start Date: 09/28/23 Status: Ordered omeprazole 20 mg oral enteric coated capsule 1 capsule, By Mouth, Daily, # 90 capsule, 1 Refills, Maintenance, 09/07/23 8:00:00 EDT, [facility], 170, cm, 06/24/23 9:05:00 EDT, Height, 114, kg, 06/12/23 17:38:00 EDT, Dry Weight Start Date: 09/07/23 Status: Ordered ondansetron 4 mg oral tablet 1 tablet = 4 mg, By Mouth, Every 8 hours, # 12 tablet, 0 Refills, Maintenance, 06/11/23 7:47:00 EDT, Tablet, [id number], Partial fill upon patient request if the prescription is for a schedule II opioid drug., 170, cm, 05/29/23 0:46:00 EST, He... Start Date: 06/11/23 Status: Ordered prochlorperazine 10 mg oral tablet 1 tablet = 10 mg, By Mouth, 3 times a day, as needed emesis, # 30 tablet, 0 Refills, Maintenance, 06/24/23 9:04:00 EDT, Tablet, [id number], Partial fill upon patient [...] 1 Refills, Maintenance, 12/16/23 8:25:00 EDT, Tablet, [id number], Partial fill upon patient [...] EDT, Route to Pharmacy Electronically, [facility], 170, cm, 06/24/23 9:05:00 EDT, Height, 114, kg, 06/12/23 17:38:00 EDT, Dry Weight Start Date: 07/28/23 Status: Ordered Vitamin D3 50,000 intl units oral capsule 1 capsule = 1,250 mcg, By Mouth, Every week, # 12 capsule, 0 Refills, Maintenance, 04/11/22 18:55:00 EST, Capsule, [facility]/pharmacy #[id number], Partial fill upon [...] Primary Care Member Role: PCP Address: Address: [address] [place] [id number]- Care Team Related Persons Name: SHERI CONTRERAS Address: [address] [place] [address] Name: LUCY LANDRMU Address: [address] [place] [address] Name: FREDDY WEAVER
== END 2023-12-28 13:35 | disposition left against medical advice (07) ==
PROVIDERS: Emergency Provider Emergency Medicine
DX: F41.9 Anxiety disorder, unspecified (principal)

== ENCOUNTER 2024-03-22 11:06 | Emergency (ER) | payer MEDICAID, SELFPAY ==
--- NOTE | 2024-03-22 11:21 | ED_ITS ---
HPI - General Adult General Chief complaint: Chest Pain Stated complaint: WEAK,N/V,CP PER EMS Time Seen by Provider: 03/22/24 11:20 Source: patient and EMS Mode of arrival: EMS Limitations: no limitations History of Present Illness ED Provider: Nasima Olvera PA-C HPI narrative: Patient is a 33 year old assigned female at with a history of cocaine abuse, PTSD, and cyclical vomiting presenting to the emergency department today with nausea, vomiting, and chest pain. Patient states that she has been at [facility] for the last week and today she began to have nausea, vomiting, and chest pain. Patient denies any dizziness, lightheadedness, abdominal pain, fever, chills, blurry vision, double vision, loss of vision, difficulty breathing, shortness of breath, back pain, night sweats, pain with urination, increased urinary frequency, increased urinary urgency, blood in her urine or stool, syncope or a near syncopal episode, recent trauma or falls, bowel incontinence, bladder incontinence, or any other complaints at this time. Relieving factors: none Exacerbating factors: none Associated symptoms: chest pain and nausea/vomiting Treatments prior to arrival: none Related Data Home Medications ?Medication ?Instructions ?Recorded ?Confirmed lorazepam 0.5 mg tablet 0.5 mg PO DAILY PRN anxiety 08/11/22 06/02/23 metformin 500 mg tablet,extended 500 mg PO DAILY 08/11/22 06/02/23 release 24 hr omeprazole 20 mg capsule,delayed 20 mg PO DAILY@0630 PRN Heartburn 08/11/22 06/02/23 release valacyclovir 500 mg tablet 500 mg PO DAILY 08/11/22 06/02/23 quetiapine 300 mg tablet 600 mg PO BEDTIME 06/02/23 06/02/23 Previous Rx's ?Medication ?Instructions ?Recorded ondansetron 4 mg disintegrating 4 mg translingual BID PRN Nausea 08/14/22 tablet And Vomiting 7 days #14 tabs trazodone 50 mg tablet 50 mg PO BEDTIME PRN insomnia 7 08/15/22 days #7 tabs ondansetron 4 mg disintegrating 4 mg PO Q6-8H PRN nausea and 06/03/23 tablet vomiting #14 tabs ondansetron HCl 8 mg tablet 8 mg PO Q8H PRN nausea and 12/27/23 vomiting #20 tabs Allergies Allergy/AdvReac Type Severity Reaction Status Date / Time codeine [CODEINE] Allergy Unknown UNKNOWN Verified 03/22/24 11:37 acetaminophen [From TYLENOL] AdvReac Mild HEADACHES Verified 03/22/24 11:37 From HALDOL Allergy Unknown Anaphylaxis Uncoded 03/22/24 11:37 Review of Systems 2 Constitutional: Constitutional: Reports no additional constitutional complaints, Denies chills, Denies fever(s) and Denies night sweats Eyes: Eyes: Reports no additional eye complaints, Denies blurry vision, Denies change in vision, Denies diplopia, Denies eye discharge, Denies loss of vision and Denies eye pain ENT: Denies dizziness Cardiovascular: Cardiovascular: Reports no additional cardiovascular complaints, Reports chest pain, Denies lightheadedness, Denies Loss of Consciousness and Denies dyspnea Respiratory: Respiratory: Reports no additional respiratory complaints and Denies dyspnea Gastrointestinal: Gastrointestinal: Reports no additional gastrointestinal complaints, Denies abdominal pain, Denies melena, Denies hematochezia, Denies change in bowel habits, Denies change in stool character, Reports nausea and Reports vomiting Genitourinary: Genitourinary: Denies hematuria, Denies urinary frequency, Denies dysuria, Denies urinary incontinence, Denies urinary hesitancy and Denies urinary urgency Musculoskeletal: Musculoskeletal: Reports no additional musculoskeletal complaints, Denies numbness and Denies tingling Neurologic: Denies dizziness, Denies loss of vision, Denies numbness and Denies tingling Psychiatric: Psychiatric: Reports no additional psychiatric complaints Endocrine: Endocrine: Reports no additional endocrine complaints Hematologic/Lymphatic: Hematologic/Lymphatic: Reports no additional hematologic/lymphatic complaints Allergic/Immunologic: Allergic/Immunologic: Reports no additional allergic/immunologic complaints [facility] Past Medical History Attestation statement: The following information was validated with the patient. Source: old records reviewed and nursing notes reviewed Medical History Suicidal ideation Anxiety Depression PTSD (post-traumatic stress disorder) Bipolar 1 disorder Surgical History S/P cholecystectomy Social History Social History Household Members: None Housing: Unknown / Unable to assess Alcohol intake: never Patient Tobacco Use Status: Current someday Tobacco user Smoked in Last 30 Days: No Use of substances other than those prescribed or required for medical reasons: Yes Substance Use Type: Crack/Cocaine and Marijuana Substance Use Frequency: Occasionally Last Used Substance: Weeks (ago) Advance Directives: No Advance Directives Information Provided: Yes Do you have a plan to hurt others: No Plan Patient : No service: No Sexual orientation: Straight/Heterosexual Physical Exam ED Vital Signs: Vital Signs - 24 hr 03/22/24 11:36 03/22/24 12:17 Temperature 97.3 F Pulse Rate 121 H 125 H Respiratory Rate 20 22 H Blood Pressure 140/95 H 151/108 H Pulse Oximetry 97 98 Oxygen Delivery Method Room Air Room Air BMI result Body Mass Index 50.5 Const General: cooperative, no acute distress, alert and awake Nutritional Appearance: well nourished Orientation/consciousness: patient oriented x3 Limitations: no limitations HENMT Head: Yes normal to inspection and Yes atraumatic Ears: hearing grossly normal bilaterally and external ears normal General nose exam: Normal external nose present, no nasal discharge noted and no epistaxis Face and sinus: Yes normal facial exam, No abrasion and No laceration Mouth: Normal oral and palatal mucosa present, no drooling and no muffled voice Eyes General: appearance normal, both eyes and all related structures Periorbital: periorbital findings normal Eyelids: Yes eyelids normal Conjunctivae: conjunctivae normal Pupils: Equal, round and reactive pupils present EOM: EOMs intact bilaterally Neck Neck: Yes normal visual inspection, Yes full ROM and Yes no lymphadenopathy Chest Chest palpation & inspection: normal inspection of the chest Resp Effort & Inspection: normal respiratory effort and able to speak in complete sentences Cardio Rate: tachycardic Rhythm: regular rhythm GI Inspection: Yes normal to inspection Neuro General: patient oriented x3 and moves all extremities Cranial nerves: Yes Equal, round and reactive pupils present Cognition (Neuro): normal cognition Extrem General: Yes normal to inspection, Yes full ROM and Yes capillary refill normal Psych Appearance: grossly normal Mental Status: mental status grossly normal Affect: normal affect Attitude: cooperative Thought process: Normal thought process present Thought content: Normal thought content present Insight: Good insight present (Psych) Medications Administered Discontinued Medications Generic Name Dose Route Start Last Admin Trade Name Freq PRN Reason Stop Dose Admin Diazepam 5 mg 03/22/24 12:54 03/22/24 14:28 Diazepam 10 Mg/2 Ml Cartridge IVPUSH 03/22/24 12:55 5 mg STAT STA Administration Diphenhydramine HCl 25 mg 03/22/24 11:22 03/22/24 11:30 Diphenhydramine Hcl 50 Mg/Ml Vial IVPUSH 03/22/24 11:23 25 mg ONCE ONE Administration Sodium Chloride 1,000 mls @ 999 mls/hr 03/22/24 14:30 03/22/24 15:09 Ns IV 03/22/24 15:30 999 mls/hr .Q1H1M JUNIOR Administration Lorazepam 2 mg 03/22/24 11:22 03/22/24 11:27 Lorazepam 2 Mg/Ml Vial IVPUSH 03/22/24 11:23 2 mg ONCE ONE Administration Lorazepam 2 mg 03/22/24 12:42 03/22/24 12:50 Lorazepam 2 Mg/Ml Vial IVPUSH 03/22/24 12:43 2 mg ONCE ONE Administration Metoclopramide HCl 10 mg 03/22/24 11:22 03/22/24 11:32 Metoclopramide Hcl 10 Mg/2 Ml Vial IVPUSH 03/22/24 11:23 10 mg ONCE ONE Administration Prochlorperazine Edisylate 10 mg 03/22/24 12:42 03/22/24 12:47 Prochlorperazine Edisylate 10 Mg/2 Ml Vial IVPUSH 03/22/24 12:43 10 mg ONCE ONE Administration Prochlorperazine Edisylate 10 mg 03/22/24 14:52 03/22/24 15:09 Prochlorperazine Edisylate 10 Mg/2 Ml Vial IVPUSH 03/22/24 14:53 10 mg ONCE ONE Administration Medical Decision Making Medical Decision Making MDM Narrative: Patient is a 33 year old assigned female at with a history of cocaine abuse, PTSD, and cyclical vomiting presenting to the emergency department today with nausea, vomiting, and chest pain. Patient's physical exam was as noted in the physical exam portion of this note. Patient's blood work was unremarkable. Patient's urine showed no acute process. Patient's EKG showed sinus tachycardia. I explained my physical exam findings as well as all test results to the patient. I answered all questions asked by the patient. Patient received multiple doses of anti emetic medications which seemed to work briefly and then the patient would vomit again. Patient has not vomited in approximately 30 minutes. Will sign the patient out to the evening PA pending PO challenge. Differential Diagnosis Differential Diagnoses: The differential diagnosis associated with the presentation includes Nausea Vomiting Cyclic vomiting Admission/Observation Consideration of admission/observation: Escalation of care including admission/observation considered Patient's disposition will be determined after PO Challenge. Lab Data [facility] Lab Attestation statement: I reviewed the patient's lab results. My interpretation of these results are in the [facility] Rationale portion of this note. 03/22/24 14:31 03/22/24 14:31 Labs: Lab Results 03/22/24 Range/Units 14:31 WBC 11.7 H (4.8-10.8) X10*3/uL RBC 5.66 H (4.20-5.50) X10*6/uL Hgb 14.2 (12.0-16.0) g/dl Hct 44.3 (37.0-47.0) % MCV 78.3 L (80.0-98.0) fL MCH 25.1 L (27.0-33.0) pg MCHC 32.1 (31.0-35.0) g/dl RDW 15.2 (11.0-16.0) % Plt Count 360 (160-400) X10*3/uL MPV 9.4 (9.4-12.3) fL Immature Gran % (Auto) 0.9 H (0.0-0.4) % Neut % (Auto) 71.4 (45-73) % Lymph % (Auto) 22.8 (20-40) % [place] % (Auto) 4.6 (2-11) % Eos % (Auto) 0.0 (0-4) % Baso % (Auto) 0.3 (0-2) % Lymph # (Auto) 2.7 (1.2-4.9) X10*3/uL [place] # (Auto) 0.5 (0.1-1.2) X10*3/uL Eos # (Auto) 0.0 (0.0-0.4) X10*3/uL Baso # (Auto) 0.0 (0.0-0.2) X10*3/uL Abs Immat Gran (auto) 0.10 H (0.00-0.03) X10*3/uL Absolute Neuts (auto) 8.3 (2.0-8.3) x10*3/uL Absolute Nucleated RBC 0.000 (0.0-0.012) X10*3/uL Nucleated RBC % (auto) 0.0 (0.0-0.2) /100WBC Sodium 141 (135-145) mmol/L Potassium 4.4 (3.3-5.1) mmol/L Chloride 104 (96-108) mmol/L Carbon Dioxide 26 (22-29) mmol/L Anion Gap 15 (12-20) BUN 13 (9-16) mg/dL Creatinine 0.84 (0.5-1.4) mg/dL Estim Creat Clear Calc 136.8 Estimated GFR > 60 Random Glucose 137 H (60-115) mg/dL Calcium 10.4 H (8.4-10.2) mg/dL Magnesium 2.5 (1.6-2.6) mg/dL Total Bilirubin 0.7 (0.0-1.0) mg/dL AST 28 (5-31) U/L ALT 23 (0-31) U/L Alkaline Phosphatase 93 (39-117) U/L Troponin I High Sens < 2.7 (<3.5-17.0) ng/L Total Protein 9.3 H (6.5-8.0) g/dL Albumin 5.1 H (3.5-5.0) g/dL Beta HCG, Quant < 2 mIU/mL Urine Color Yellow Urine Appearance Clear Urine pH 8.0 (5.0-9.0) Ur Specific Rheems 1.020 (1.005-1.025) Urine Protein 100 (2+) H (Neg-Trace) mg/dL Urine Glucose (UA) Negative (Negative) mg/dL Urine Ketones 15 (Negative) mg/dL Urine Blood Negative (Negative) Urine Nitrite Negative (Negative) Ur Leukocyte Esterase Negative (Negative) Urine RBC 0-2 (0-2) /HPF Urine WBC 0-5 (0-5) /HPF Ur Squamous Epith Cells 6-10 (0-2) /HPF Urine Bacteria None Seen (None Seen) Hyaline Casts 0-2 (0-2) /LPF Influenza Type A (PCR) NEGATIVE (Negative) Influenza Type B (PCR) NEGATIVE (Negative) RSV RNA Qual (PCR) NEGATIVE (Negative) SARS-CoV-2 RNA (RT-PCR) NEGATIVE (Negative) Independent Interpretation I performed an independent interpretation of an: EKG Interpretation: Vent. Rate: 125 BPM Atrial Rate: 125 BPM P-R Int: 152 ms QRS Dur: 082 ms QT Int: 322 ms P-R-T Axes: 063 009 037 degrees QTc Int: 464 ms Sinus tachycardia Otherwise normal ECG When compared with ECG of 11-AUG-2022 15:11, No significant change was found Referred By: Nasima Olvera Electronically Signed By:BEAU MURDOCK MD Dictated By: Beau Murdock MD Signed By: Electronically signed by Beau Murdock MD 03/22/24 1230 Independent Historian Clinical information obtained from an independent historian. History obtained from or confirmed by: EMS (EMS provided additional history and confirmed the history provided by the patient.) Discharge Plan Discharge Clinical Impression: Cyclical vomiting Patient Disposition: Still a Patient Prescriptions: No Action ondansetron HCl 8 mg tablet 8 mg PO Q8H PRN (Reason: nausea and vomiting) Qty: 20 0RF valacyclovir 500 mg tablet 500 mg PO DAILY lorazepam 0.5 mg tablet 0.5 mg PO DAILY PRN (Reason: anxiety) omeprazole 20 mg capsule,delayed release(DR/EC) 20 mg PO DAILY@0630 PRN (Reason: Heartburn) metformin 500 mg tablet extended release 24 hr 500 mg PO DAILY ondansetron 4 mg Tablet,Disintegrating 4 mg translingual BID PRN (Reason: Nausea And Vomiting) 7 Days Qty: 14 0RF trazodone 50 mg tablet 50 mg PO BEDTIME PRN (Reason: insomnia) 7 Days Qty: 7 0RF quetiapine 300 mg tablet 600 mg PO BEDTIME ondansetron 4 mg tablet,disintegrating 4 mg PO Q6-8H PRN (Reason: nausea and vomiting) Qty: 14 0RF Print Language: Upper Sorbian
--- NOTE | 2024-03-22 11:22 | ECG_ITS ---
Test Reason : CP Blood Pressure : / mmHG Vent. Rate : 125 BPM Atrial Rate : 125 BPM P-R Int : 152 ms QRS Dur : 082 ms QT Int : 322 ms P-R-T Axes : 063 009 037 degrees QTc Int : 464 ms Sinus tachycardia Otherwise normal ECG When compared with ECG of 11-AUG-2022 15:11, No significant change was found Referred By: Nasima Olvera Electronically Signed By:KURTIS CARTWRIGHT MD
[2024-03-22] MEDS: LORazepam 2 MG/ML VIAL IVPUSH ×2 (11:27→12:50)
[2024-03-22] MEDS: diphenhydrAMINE HCL 50 MG/ML VIAL 25 MG IVPUSH (11:30)
[2024-03-22] MEDS: Metoclopramide HCl 10 MG/2 ML VIAL IVPUSH (11:32)
[2024-03-22 11:36] VITALS: BP 140/95; BP 154/98; PULSE 118; PULSE 121; RESP 20; TEMP 36.3; O2SAT 97; O2SAT 98; BMI 50.5
--- NOTE | 2024-03-22 11:47 | PC.NURSE ---
Pt comes to ED today from home by EMS with complaints of n/v x3 days with chest pain 09/29. Pt reports she was just discharged from [facility] this morning after about a 2 week stay. She reports Hx of MJ and Cocaine use but not within the last 2 weeks as she has been inpatient up until this AM. Pt is very anxious upon arrival and requires verbal reassurance and emotional support. 20g to L hand by EMS; IV access is intact, patent, and flushes well. Pt medicated per MAR with good result. Pt is now resting quietly with eye closed. No vomiting at this time. Will continue with workup as ordered.
[2024-03-22 12:17] VITALS: BP 151/108; PULSE 125; RESP 22; O2SAT 98
[2024-03-22] MEDS: Prochlorperazine Edisylate 10 MG/2 ML VIAL IVPUSH ×2 (12:47→15:09)
[2024-03-22] MEDS: diazePAM 10 MG/2 ML CARTRIDGE 5 MG IVPUSH (14:28)
[2024-03-22 14:37] LABS: MANUAL DIFF FLAG NO
[2024-03-22 14:40] LABS: Appearance Urine Clear; Color Urine Yellow; Glucose Urine UA Negative (Negative); Leukocyte Esterase Urine Negative (Negative); Nitrite Urine Negative (Negative); UMIC TRIGGER UACC YES; Urine Blood Negative (Negative); Urine Ketones 15 mg/dL (Negative); Urine Protein 100 (2+) mg/dL (Neg-Trace)
[2024-03-22 14:42] LABS: Bacteria Urine None Seen (None Seen); Hyaline Casts Urine 0-2 /LPF (0-2); RBC Urine 0-2 /HPF (0-2); WBC Urine 0-5 /HPF (0-5)
[2024-03-22 14:43] LABS: Basophils Percent Auto 0.3 % (0-2); Hematocrit 44.3 % (37.0-47.0); Hemoglobin 14.2 g/dl (12.0-16.0); Imm Gran Pct Auto 0.9 % (0.0-0.4); Lymphocytes Absolute Auto 2.7 X10*3/uL (1.2-4.9); Lymphocytes Percent Auto 22.8 % (20-40); Mean Corpuscular HGB Conc 32.1 g/dl (31.0-35.0); Mean Corpuscular Hemoglobin 25.1 pg (27.0-33.0); Mean Corpuscular Volume 78.3 fL (80.0-98.0); Mean Platelet Volume 9.4 fL (9.4-12.3); Monocytes Absolute Auto 0.5 X10*3/uL (0.1-1.2); Monocytes Percent Auto 4.6 % (2-11); Neutrophils Absolute Auto 8.3 x10*3/uL (2.0-8.3); Neutrophils Percent Auto 71.4 % (45-73); Platelet Count 360 X10*3/uL (160-400); Red Blood Count 5.66 X10*6/uL (4.20-5.50); Red Cell Distribution Width 15.2 % (11.0-16.0); White Blood Count 11.7 X10*3/uL (4.8-10.8)
[2024-03-22 14:59] LABS: Alanine Aminotransferase 23 U/L (0-31); Albumin Level 5.1 g/dL (3.5-5.0); Alkaline Phosphatase 93 U/L (39-117); Anion Gap 15 (12-20); Aspartate Amino Transferase 28 U/L (5-31); Bilirubin Total 0.7 mg/dL (0.0-1.0); Blood Urea Nitrogen 13 mg/dL (9-16); Calcium 10.4 mg/dL (8.4-10.2); Carbon Dioxide 26 mmol/L (22-29); Chloride 104 mmol/L (96-108); Creatinine Clr Calc Pharmacy 136.8; Estimated Glomerular Filt Rate > 60; Glucose Random 137 mg/dL (60-115); Magnesium 2.5 mg/dL (1.6-2.6); Potassium 4.4 mmol/L (3.3-5.1); Sodium 141 mmol/L (135-145); Total Protein 9.3 g/dL (6.5-8.0)
[2024-03-22 15:02] LABS: HCG Quantitative < 2 mIU/mL; Troponin-I High Sensitivity < 2.7 ng/L (<3.5-17.0)
[2024-03-22] MEDS: 0.9 % Sodium Chloride 1,000 ML 999 ML IV (15:09)
[2024-03-22 15:16] LABS: Influenza A PCR NEGATIVE (Negative); Influenza B PCR NEGATIVE (Negative); Resp Syncy Virus RNA Qual PCR NEGATIVE (Negative); SARS COV2 PCR INHOUSE NEGATIVE (Negative)
[2024-03-22 16:37] VITALS: BP 161/92; PULSE 91; RESP 18; TEMP 36.3; O2SAT 98
--- NOTE | 2024-03-22 16:41 | PC.NURSE ---
this nurse was approached by patient in waiting room stating that she wanted medication for nausea at home- this nurse speaking with provider and charge.
== END 2024-03-22 16:43 | disposition home or self-care (01) ==
PROVIDERS: Physician Assistant Medical; Emergency Provider Emergency Medicine
DX: R11.15 Cyclical vomiting syndrome unrelated to migraine (principal); R07.89 Other chest pain; R11.2 Nausea with vomiting, unspecified; R00.0 Tachycardia, unspecified; Z03.818 Encounter for observation for suspected exposure to other biological agents ruled out; Z79.899 Other long term (current) drug therapy
CPT/HCPCS: 0241U; 36415; 80053; 81001; 83735; 84484; 84702; 85025; 93005; 96374; 96375; 96376; 99285; J0737; J1200; J2060; J2765; J3360

== ENCOUNTER → 2024-03-22 11:22 | Outpatient (BNV) | payer OTHER, SELFPAY | PROVIDERS: Emergency Provider Emergency Medicine; Visit Provider Internal Medicine Cardiovascular Disease | DX: R07.9 Chest pain, unspecified (principal) | CPT/HCPCS: 93010 ==

== ENCOUNTER 2024-03-25 04:03 | Emergency (ER) | payer MEDICAID, SELFPAY ==
[2024-03-25 04:29] VITALS: BP 152/96; BP 178/101; PULSE 110; PULSE 114; RESP 20; TEMP 36.6; O2SAT 94; O2SAT 98; BMI 34.0
[2024-03-25 04:52] LABS: Basophils Percent Auto 0.3 % (0-2); Eosinophils Absolute Auto 0.1 X10*3/uL (0.0-0.4); Eosinophils Percent Auto 0.5 % (0-4); Hematocrit 39.2 % (37.0-47.0); Hemoglobin 12.8 g/dl (12.0-16.0); Imm Gran Pct Auto 0.9 % (0.0-0.4); Lymphocytes Absolute Auto 5.1 X10*3/uL (1.2-4.9); Lymphocytes Percent Auto 47.1 % (20-40); MANUAL DIFF FLAG SCAN; Mean Corpuscular HGB Conc 32.7 g/dl (31.0-35.0); Mean Corpuscular Hemoglobin 25.9 pg (27.0-33.0); Mean Corpuscular Volume 79.2 fL (80.0-98.0); Mean Platelet Volume 8.5 fL (9.4-12.3); Monocytes Absolute Auto 0.9 X10*3/uL (0.1-1.2); Monocytes Percent Auto 7.8 % (2-11); Neutrophils Absolute Auto 4.7 x10*3/uL (2.0-8.3); Neutrophils Percent Auto 43.4 % (45-73); Platelet Count 317 X10*3/uL (160-400); Red Blood Count 4.95 X10*6/uL (4.20-5.50); Red Cell Distribution Width 14.8 % (11.0-16.0); SCAN SMEAR FLAG 1; White Blood Count 10.9 X10*3/uL (4.8-10.8)
[2024-03-25] MEDS: Prochlorperazine Edisylate 10 MG/2 ML VIAL IVPUSH (05:02)
[2024-03-25] MEDS: LORazepam 2 MG/ML VIAL 1 MG IVPUSH (05:02)
[2024-03-25] MEDS: 0.9 % Sodium Chloride 1,000 ML 999 ML IV (05:02)
[2024-03-25 05:07] LABS: Alanine Aminotransferase 18 U/L (0-31); Albumin Level 4.3 g/dL (3.5-5.0); Alkaline Phosphatase 79 U/L (39-117); Anion Gap 12 (12-20); Aspartate Amino Transferase 25 U/L (5-31); Bilirubin Total 0.4 mg/dL (0.0-1.0); Blood Urea Nitrogen 8 mg/dL (9-16); Calcium 8.9 mg/dL (8.4-10.2); Carbon Dioxide 22 mmol/L (22-29); Chloride 106 mmol/L (96-108); Creatinine Clr Calc Pharmacy 114.2; Estimated Glomerular Filt Rate > 60; Glucose Random 120 mg/dL (60-115); Lipase 26 U/L (8-78); Potassium 3.2 mmol/L (3.3-5.1); Sodium 137 mmol/L (135-145); Total Protein 7.7 g/dL (6.5-8.0)
--- NOTE | 2024-03-25 05:09 | PC.NURSE ---
Iv started, medicated per may, labs collected and sent.
[2024-03-25 05:19] LABS: SLIDE REVIEW VERIFIED
[2024-03-25 05:28] LABS: Influenza A PCR NEGATIVE (Negative); Influenza B PCR NEGATIVE (Negative); Resp Syncy Virus RNA Qual PCR NEGATIVE (Negative); SARS COV2 PCR INHOUSE NEGATIVE (Negative)
--- NOTE | 2024-03-25 06:08 | ED.GENADULT ---
HPI - General Adult General Chief complaint: General Medical Stated complaint: Vomiting,no relief since her visit here on 04/22/23 Time Seen by Provider: 03/25/24 06:08 Source: patient Mode of arrival: ambulatory Limitations: no limitations History of Present Illness ED Provider: HPI narrative: Patient's history of cocaine abuse PTSD cyclic vomiting syndrome was seen here on 03/22 for vomiting comes back as again she started vomiting since last night no diarrhea taking Zofran without much response uses marijuana and cocaine Related Data Home Medications ?Medication ?Instructions ?Recorded ?Confirmed lorazepam 0.5 mg tablet 0.5 mg PO DAILY PRN anxiety 08/11/22 06/02/23 metformin 500 mg tablet,extended 500 mg PO DAILY 08/11/22 06/02/23 release 24 hr omeprazole 20 mg capsule,delayed 20 mg PO DAILY@0630 PRN Heartburn 08/11/22 06/02/23 release valacyclovir 500 mg tablet 500 mg PO DAILY 08/11/22 06/02/23 quetiapine 300 mg tablet 600 mg PO BEDTIME 06/02/23 06/02/23 Previous Rx's ?Medication ?Instructions ?Recorded ondansetron 4 mg disintegrating 4 mg translingual BID PRN Nausea 08/14/22 tablet And Vomiting 7 days #14 tabs trazodone 50 mg tablet 50 mg PO BEDTIME PRN insomnia 7 08/15/22 days #7 tabs ondansetron 4 mg disintegrating 4 mg PO Q6-8H PRN nausea and 06/03/23 tablet vomiting #14 tabs ondansetron HCl 8 mg tablet 8 mg PO Q8H PRN nausea and 12/27/23 vomiting #20 tabs ondansetron 4 mg disintegrating 4 mg PO Q8H PRN nausea and 03/22/24 tablet vomiting #10 tabs Allergies Allergy/AdvReac Type Severity Reaction Status Date / Time codeine [CODEINE] Allergy Unknown UNKNOWN Verified 03/25/24 04:34 acetaminophen [From TYLENOL] AdvReac Mild HEADACHES Verified 03/25/24 04:34 From HALDOL Allergy Unknown Anaphylaxis Uncoded 03/22/24 11:37 Review of Systems Review of Systems: Yes all other systems are reviewed and are negative PMFSH Past Medical History Medical History Suicidal ideation Anxiety Depression PTSD (post-traumatic stress disorder) Bipolar 1 disorder Surgical History S/P cholecystectomy Social History Social History Household Members: None Housing: Unknown / Unable to assess Alcohol intake: never Patient Tobacco Use Status: Current someday Tobacco user Smoked in Last 30 Days: No Use of substances other than those prescribed or required for medical reasons: Yes Substance Use Type: Marijuana Advance Directives: No Advance Directives Information Provided: No Do you have a plan to hurt others: No Plan service: No Sexual orientation: Straight/Heterosexual Physical Exam ED Vital Signs: Vital Signs - 24 hr 03/25/24 04:29 Temperature 97.9 F Pulse Rate 110 H Respiratory Rate 20 Blood Pressure 152/96 H Pulse Oximetry 94 Oxygen Delivery Method Room Air BMI result Body Mass Index 34.0 Appearance: Alert. Oriented X3. Anxious Eyes: No pallor or icterus ENT: Pharynx normal. Oral Mucosa moist Neck: Normal inspection. Neck supple. CVS: Normal heart rate and rhythm. Pulses normal. Respiratory: No respiratory distress. Equal air entry bilateral, no wheezing/rales/rhonchi Abdomen: Soft and nontender. Bowel sounds are present, no mass palpable, no CVA tenderness Skin: Skin warm and dry. Normal skin color. Normal skin turgor. Extremities: No lower extremity edema. No calf tenderness Neuro: Oriented X 3. No motor deficit. Medications Administered Discontinued Medications Generic Name Dose Route Start Last Admin Trade Name Freq PRN Reason Stop Dose Admin Sodium Chloride 1,000 mls @ 999 mls/hr 03/25/24 04:57 03/25/24 06:14 Ns IV 03/25/24 05:57 Infused .Q1H1M ONE Infusion Lorazepam 1 mg 03/25/24 04:56 03/25/24 05:02 Lorazepam 2 Mg/Ml Vial IVPUSH 03/25/24 04:57 1 mg ONCE ONE Administration Prochlorperazine Edisylate 10 mg 03/25/24 04:56 03/25/24 05:02 Prochlorperazine Edisylate 10 Mg/2 Ml Vial IVPUSH 03/25/24 04:57 10 mg ONCE ONE Administration Medical Decision Making Medical Decision Making [facility] Narrative: Patient's cyclic vomiting syndrome received IV fluids Ativan Compazine patient's left ED without finishing her treatment Lab Data [facility] Lab Attestation statement: I reviewed the patient's lab results. 03/25/24 04:47 03/25/24 04:47 Labs: Lab Results 03/25/24 Range/Units 04:47 WBC 10.9 H (4.8-10.8) X10*3/uL RBC 4.95 (4.20-5.50) X10*6/uL Hgb 12.8 (12.0-16.0) g/dl Hct 39.2 (37.0-47.0) % MCV 79.2 L (80.0-98.0) fL MCH 25.9 L (27.0-33.0) pg MCHC 32.7 (31.0-35.0) g/dl RDW 14.8 (11.0-16.0) % Plt Count 317 (160-400) X10*3/uL MPV 8.5 L (9.4-12.3) fL Immature Gran % (Auto) 0.9 H (0.0-0.4) % Neut % (Auto) 43.4 L (45-73) % Lymph % (Auto) 47.1 H (20-40) % [place] % (Auto) 7.8 (2-11) % Eos % (Auto) 0.5 (0-4) % Baso % (Auto) 0.3 (0-2) % Lymph # (Auto) 5.1 H (1.2-4.9) X10*3/uL [place] # (Auto) 0.9 (0.1-1.2) X10*3/uL Eos # (Auto) 0.1 (0.0-0.4) X10*3/uL Baso # (Auto) 0.0 (0.0-0.2) X10*3/uL Abs Immat Gran (auto) 0.10 H (0.00-0.03) X10*3/uL Absolute Neuts (auto) 4.7 (2.0-8.3) x10*3/uL Absolute Nucleated RBC 0.000 (0.0-0.012) X10*3/uL Nucleated RBC % (auto) 0.0 (0.0-0.2) /100WBC Smear Tech's Comments VERIFIED Sodium 137 (135-145) mmol/L Potassium 3.2 L D (3.3-5.1) mmol/L Chloride 106 (96-108) mmol/L Carbon Dioxide 22 (22-29) mmol/L Anion Gap 12 (12-20) BUN 8 L (9-16) mg/dL Creatinine 0.86 (0.5-1.4) mg/dL Estim Creat Clear Calc 114.2 Estimated GFR > 60 Random Glucose 120 H (60-115) mg/dL Calcium 8.9 D (8.4-10.2) mg/dL Total Bilirubin 0.4 (0.0-1.0) mg/dL AST 25 (5-31) U/L ALT 18 (0-31) U/L Alkaline Phosphatase 79 (39-117) U/L Total Protein 7.7 (6.5-8.0) g/dL Albumin 4.3 (3.5-5.0) g/dL Lipase 26 (8-78) U/L Influenza Type A (PCR) NEGATIVE (Negative) Influenza Type B (PCR) NEGATIVE (Negative) RSV RNA Qual (PCR) NEGATIVE (Negative) SARS-CoV-2 RNA (RT-PCR) NEGATIVE (Negative) Discharge Plan Discharge Clinical Impression: Cyclical vomiting Patient Disposition: Elopement Prescriptions: No Action ondansetron HCl 8 mg tablet 8 mg PO Q8H PRN (Reason: nausea and vomiting) Qty: 20 0RF valacyclovir 500 mg tablet 500 mg PO DAILY lorazepam 0.5 mg tablet 0.5 mg PO DAILY PRN (Reason: anxiety) omeprazole 20 mg capsule,delayed release(DR/EC) 20 mg PO DAILY@0630 PRN (Reason: Heartburn) metformin 500 mg tablet extended release 24 hr 500 mg PO DAILY ondansetron 4 mg Tablet,Disintegrating 4 mg translingual BID PRN (Reason: Nausea And Vomiting) 7 Days Qty: 14 0RF trazodone 50 mg tablet 50 mg PO BEDTIME PRN (Reason: insomnia) 7 Days Qty: 7 0RF quetiapine 300 mg tablet 600 mg PO BEDTIME ondansetron 4 mg tablet,disintegrating 4 mg PO Q6-8H PRN (Reason: nausea and vomiting) Qty: 14 0RF ondansetron 4 mg tablet,disintegrating 4 mg PO Q8H PRN (Reason: nausea and vomiting) Qty: 10 0RF Print Language: Swedish
--- NOTE | 2024-03-25 06:14 | PC.NURSE ---
pt continued to vomit, medicate per mar, pt was resting, woke up requesting more medication, pt ambulated to bathroom, the requested to have Iv removed, told pt I would be there to medicate her not to remove the Iv, Pt became up set, stating she was not staying here anymore, ripe Iv out and left with out completing treatment. Dr. Roman aware.
--- NOTE | 2024-03-25 06:19 | PC.NURSE ---
Pt has now return back to room requesting to complete treatment, after pulling Iv out, Provider aware.
--- NOTE | 2024-03-25 06:26 | PC.NURSE ---
Pt had now requested to clean her arm and but bandage and left without completing treatment.
== END 2024-03-25 06:28 | disposition left against medical advice (07) ==
PROVIDERS: Emergency Provider Internal Medicine
DX: R11.15 Cyclical vomiting syndrome unrelated to migraine (principal); F12.90 Cannabis use, unspecified, uncomplicated; F43.10 Post-traumatic stress disorder, unspecified; F17.200 Nicotine dependence, unspecified, uncomplicated; F14.10 Cocaine abuse, uncomplicated; Z79.84 Long term (current) use of oral hypoglycemic drugs; Z79.899 Other long term (current) drug therapy; Z03.818 Encounter for observation for suspected exposure to other biological agents ruled out
CPT/HCPCS: 0241U; 36415; 80053; 83690; 85025; 96361; 96374; 96375; 99284; J0737; J2060